=== PATIENT | male | born 1970 | race Caucasian/White ===

== ENCOUNTER 2022-11-19 06:30 | Observation (INO) ==
--- NOTE | 2022-10-05 12:10 | PAT Medication Instructions ---
Medication Instructions Date of Service October 05, 2022 Home Medications Medication Instructions Recorded gabapentin 600 mg tablet 600 mg PO TID #270 tabs 12/31/21 Oxygen Home albuterol sulfate 0.63 mg/3 mL solution for nebulization 0.63 mg inhalation BID albuterol sulfate 90 mcg/actuation aerosol inhaler 2 puffs inhalation Q4H PRN benzonatate 100 mg capsule 100 mg PO BID montelukast 10 mg tablet (Singulair) 10 mg PO HS roflumilast 500 mcg tablet (Daliresp) 500 mcg PO HS trazodone 50 mg tablet 100 mg PO HS duloxetine 30 mg capsule,delayed release (Cymbalta) 30 mg PO QAM methylprednisolone 8 mg tablet 8 mg PO BID PRN lisinopril 10 mg tablet (Prinivil) 10 mg PO QAM gabapentin 600 mg tablet 600 mg PO TID baclofen 10 mg tablet 10 mg PO TID celecoxib 200 mg capsule 200 mg PO BID oxycodone-acetaminophen 10 mg-325 mg tablet (Percocet) 1 tab PO UD PRN atorvastatin 20 mg tablet 20 mg PO QAM diclofenac sodium 1 % topical gel 2 g topical QID PRN diltiazem HCl 360 mg capsule,24 hr,extended release (Tiadylt ER) 360 mg PO QAM docusate sodium 100 mg tablet 100 mg PO QID duloxetine 60 mg capsule,delayed release (Cymbalta) 60 mg PO QAM famotidine 20 mg tablet 20 mg PO BID fluticasone fur. 200 mcg-umeclid 62.5 mcg-vilant 25 mcg inhalat.powder (Trelegy Ellipta) 1 inh inhalation QAM furosemide 20 mg tablet 20 mg PO QAM ibuprofen 600 mg tablet 600 mg PO TID ivabradine 5 mg tablet (Corlanor) 5 mg PO BID metoprolol succinate 25 mg tablet,extended release 24 hr 25 mg PO HS omeprazole 40 mg capsule,delayed release 40 mg PO BID Continue as directed methylprednisolone 8 mg tablet 8 mg PO BID PRN(if needed) ASK your surgeon for instructions celecoxib 200 mg capsule 200 mg PO BID diclofenac sodium 1 % topical gel 2 g topical QID PRN ibuprofen 600 mg tablet 600 mg PO TID DO NOT take the morning of surgery benzonatate 100 mg capsule 100 mg PO BID lisinopril 10 mg tablet (Prinivil) 10 mg PO QAM baclofen 10 mg tablet 10 mg PO TID docusate sodium 100 mg tablet 100 mg PO QID furosemide 20 mg tablet 20 mg PO QAM Take morning of surgery With a small sip of water, OTHERWISE NOTHING TO EAT OR DRINK AFTER MIDNIGHT: albuterol sulfate 0.63 mg/3 mL solution for nebulization 0.63 mg inhalation BID albuterol sulfate 90 mcg/actuation aerosol inhaler 2 puffs inhalation Q4H PRN (use if needed; please bring with you to hospital day of surgery if possible) duloxetine 30 mg capsule,delayed release (Cymbalta) 30 mg PO QAM gabapentin 600 mg tablet 600 mg PO TID oxycodone-acetaminophen 10 mg-325 mg tablet (Percocet) 1 tab PO UD PRN(if needed) atorvastatin 20 mg tablet 20 mg PO QAM diltiazem HCl 360 mg capsule,24 hr,extended release (Tiadylt ER) 360 mg PO QAM duloxetine 60 mg capsule,delayed release (Cymbalta) 60 mg PO QAM famotidine 20 mg tablet 20 mg PO BID fluticasone fur. 200 mcg-umeclid 62.5 mcg-vilant 25 mcg inhalat.powder (Trelegy Ellipta) 1 inh inhalation QAM ivabradine 5 mg tablet (Corlanor) 5 mg PO BID omeprazole 40 mg capsule,delayed release 40 mg PO BID Take evening before surgery albuterol sulfate 0.63 mg/3 mL solution for nebulization 0.63 mg inhalation BID albuterol sulfate 90 mcg/actuation aerosol inhaler 2 puffs inhalation Q4H PRN(if needed) benzonatate 100 mg capsule 100 mg PO BID montelukast 10 mg tablet (Singulair) 10 mg PO HS roflumilast 500 mcg tablet (Daliresp) 500 mcg PO HS trazodone 50 mg tablet 100 mg PO HS gabapentin 600 mg tablet 600 mg PO TID baclofen 10 mg tablet 10 mg PO TID famotidine 20 mg tablet 20 mg PO BID ivabradine 5 mg tablet (Corlanor) 5 mg PO BID metoprolol succinate 25 mg tablet,extended release 24 hr 25 mg PO HS omeprazole 40 mg capsule,delayed release 40 mg PO BID Other Notes If you have any questions please call us at [phone] or [phone] or [phone] or [phone]
--- NOTE | 2022-10-12 10:40 | Anesthesiology Consultation ---
Date of Service October 12, 2022 Assessment & Plan (1) Encounter for pre-operative examination: Chart Review Chart Review: Pending: Refer to Additional Notes / Consult section (pending cardio clearance appt 10/18/22, cardiac cath if available, most recent PCP note, most recent pulm note ) and Patient seen in Pre Admission Testing - Discussed with Dr. Sparks who recommends cardio preop optimization appt- pt did call flight teacher ([facility] [place]- Dr. Shields) - scheduled 10/18/22 for cardio clearance appt- will await - Awaiting cardiac cath- Oct 2017 (if flight teacher does not have copy- patient had cath done at [facility] in [place]- by Dr. Carlito Huerta- phone number [phone]) - Please obtain most recent PCP note and pulmonology note (dietetic technician is Dr. Kinsey in [place]) Pt states he has severe anxiety about upcoming surgery and will have increased anxiety DOS - Pt is NOT a Same Day Joint candidate due to comorbidities Per PAT appt on 10/12/22, patient denies any recent travel or large group activities. Pt is NOT vaccinated for Covid. Will leave to surgeon's discretion if preop Covid testing needed. Educated on importance of using Covid precautions one week prior to surgery Last seen by cardio 12/03/21= seen for follow-up visit. CADmild per her reportcath done November 2017. Hypertensionbenigncontinue current meds. COPDwe will review pulmonology's notes. Inappropriate tachycardiaon high dose of diltiazem as well as moderate beta-blockerdoing well on CorlanorHR well controlled. Holter monitor ordered due to night time sweats. Follow up in six months Teaching & Discussion Pre-Anesthesia Teaching/Discussion Notes: Instructed NPO after midnight before surgery,except medications with 15 cc of water. Medication instructions provided according to the PAT guidelines. History Surgery Operation Date: 11/19/22 12:45 Proposed Procedures p Left Anterior Total Hip Arthroplasty - Nayan Burgos DO Height/Weight Height: 5 ft 9 in Weight: 102.1 kg Allergies Allergy/AdvReac Type Severity Reaction Status Date / Time prednisone Allergy rash Verified 10/04/22 07:37 Medications Home Medications Medication Instructions Recorded Confirmed Last Taken Oxygen Home #1 ea 11/23/19 08/18/22 Unknown albuterol sulfate 0.63 mg/3 mL 0.63 mg inhalation BID 11/23/19 10/04/22 Unknown solution for nebulization albuterol sulfate 90 mcg/actuation 2 puffs inhalation Q4H PRN 11/23/19 10/04/22 Unknown aerosol inhaler Shortness Of Breath benzonatate 100 mg capsule 100 mg PO BID 11/23/19 10/04/22 Unknown montelukast 10 mg tablet 10 mg PO HS 11/23/19 10/04/22 Unknown (Singulair) roflumilast 500 mcg tablet 500 mcg PO HS 11/23/19 10/04/22 Unknown (Daliresp) trazodone 50 mg tablet 100 mg PO HS 11/23/19 10/04/22 Unknown duloxetine 30 mg capsule,delayed 30 mg PO QAM 05/15/20 10/04/22 Unknown release (Cymbalta) methylprednisolone 8 mg tablet 8 mg PO BID PRN breathing flare up 05/15/20 10/04/22 Unknown lisinopril 10 mg tablet (Prinivil) 10 mg PO QAM 06/20/20 10/04/22 Unknown gabapentin 600 mg tablet 600 mg PO TID #270 tabs 12/31/21 10/04/22 Unknown baclofen 10 mg tablet 10 mg PO TID 08/18/22 10/04/22 Unknown celecoxib 200 mg capsule 200 mg PO BID 08/18/22 10/04/22 Unknown oxycodone-acetaminophen 10 mg-325 1 tab PO UD PRN Pain 08/18/22 10/04/22 Unknown mg tablet (Percocet) atorvastatin 20 mg tablet 20 mg PO QAM 10/04/22 10/04/22 Unknown diclofenac sodium 1 % topical gel 2 g topical QID PRN Pain 10/04/22 10/04/22 Unknown diltiazem HCl 360 mg capsule,24 360 mg PO QAM 10/04/22 10/04/22 Unknown hr,extended release (Tiadylt ER) docusate sodium 100 mg tablet 100 mg PO QID 10/04/22 10/04/22 Unknown duloxetine 60 mg capsule,delayed 60 mg PO QAM 10/04/22 10/04/22 Unknown release (Cymbalta) famotidine 20 mg tablet 20 mg PO BID 10/04/22 10/04/22 Unknown fluticasone fur. 200 mcg-umeclid 1 inh inhalation QAM 10/04/22 10/04/22 Unknown 62.5 mcg-vilant 25 mcg inhalat.powder (Trelegy Ellipta) furosemide 20 mg tablet 20 mg PO QAM 10/04/22 10/04/22 Unknown ibuprofen 600 mg tablet 600 mg PO TID 10/04/22 10/04/22 Unknown ivabradine 5 mg tablet (Corlanor) 5 mg PO BID 10/04/22 10/04/22 Unknown metoprolol succinate 25 mg 25 mg PO HS 10/04/22 10/04/22 Unknown tablet,extended release 24 hr omeprazole 40 mg capsule,delayed 40 mg PO BID 10/04/22 10/04/22 Unknown release Past Medical History Medical History (Updated 10/12/22 @ 11:12 by Helga Gottlieb PA-C) Anxiety "Severe" Asthma Follows with pulm CAD (coronary artery disease) Mild per 2018 cath per cardio records ([facility])) Cataract bilat. Cervical disc herniation Cervical radiculopathy Congenital stenosis of cervical spine Worst at C5-6 COPD (chronic obstructive pulmonary disease) Follows with pulm Depression Emphysema lung O2 at 3L continuous Follows Dr. Kinsey ([place]) GERD (gastroesophageal reflux disease) Well controlled and controlled History of pericarditis Occurred around 2012- etiology unknown - treated with mediations- no issues since History of tachycardia Likely related to COPD and hypoxia per cardio records Well controlled with medication Hypertension Migraines History Exercise / Class Metabolic Activity III < 4 Walking/Shop/Light housework (no chest pain, SOB with flat surface ambulation ) Past Family History Family History Mother Heart disease Hypertension Grandmother (Paternal) Diabetes Grandfather (Paternal) Heart disease Grandfather (Maternal) Lung disease Past Surgical History Surgical History History of cardiac cath ~5 years ago, LISA power, no stents>no finding; f/u [facility] History of esophagogastroduodenoscopy (EGD) History of radiofrequency ablation (RFA) of nerve of cervical spine Hx of colonoscopy Hx of external ear surgery reattachment of lt earlobe Hx of hand surgery lt ring finger, reconstruction Hx of myringotomy bilat w/tubes Hx of shoulder surgery rt. S/P epidural steroid injection neck and back Status post carpal tunnel release of both wrists Past Anesthesia History No Hx of Anesthesia Complications and No Family Hx of Anesthesia Complications History of PONV No Hx of PONV and No Hx of Motion Sickness Social History Smoking Status: Former smoker tobacco type: cigarettes Do You Dip or Chew Tobacco: Yes (1 can/day; advised) Smoking End Date: over 5 years ago; occasionally takes "a hit of his 's cigarette" Hx Alcohol Use: No (hx-not in quite some time) Hx Substance Use: No substance use type: does not use Review of Systems Chronic coughing and wheezing Hx of snoring- hx of sleep study- no BIMAL Patient denies chest pain, shortness of breath at rest, palpitations. No hx of seizures, stroke, MO. No hx of blood clots or blood transfusions Physical Exam Vital Signs VITALS BP 105/64 P 64 TEMP 97.9 SP02 98% on 3 liters of O2 RESP 16 Constitutional no acute distress ENMT Mouth: no TMJ clicking Thyromental Distance: > or= 3.5 Finger Breadths (3.5) Mallampati Class: III Damage and broken top/ front teeth Neck + limited neck extension Respiratory normal respiratory effort; no respiratory distress Auscultation: lungs clear to auscultation bilaterally and + diminished lung sounds (significantly throughout); no wheezes Cardiovascular Rate/Rhythm: regular rate and regular rhythm Heart Sounds: no murmur Vessels: no carotid bruit Musculoskeletal Spine: + pain with cervical ROM Extremities: extremities normal to inspection Psychiatric Orientation: alert Lab Results Anesthesia Preop Results Results Anesthesia Widget: WBC 8.45 K/ul (4.8-10.8) 10/12/22 Hgb 12.6 g/dl (14.0-18.0) L 10/12/22 Hct 36.9 % (40.1-51.0) L 10/12/22 Plt 237 K/uL (130-400) 10/12/22 Na 138 mmol/L (136-145) 10/12/22 K 4.0 mmol/L (3.5-5.1) 10/12/22 Cl 105 mmol/L (98-107) 10/12/22 CO2 27 mmol/L (21-32) 10/12/22 BUN 16 mg/dl (6-23) 10/12/22 Creat 0.98 mg/dl (0.6-1.4) 10/12/22 Glucose Level 95 mg/dl (70-99(Fasting)) 10/12/22 PT 9.8 Seconds (9.0-12.0) 10/12/22 PTT 23.4 Seconds (21.0-31.0) 10/12/22 INR 0.9 (0.9-1.1) 10/12/22 Blood Type A Positive 10/12/22 Antibody Screen NEGATIVE 10/12/22 Testing Electrocardiogram Date: 10/12/22 Findings: + NSR @ (62bpm ) Normal EKG per cardio Chest X-Ray Date: 10/12/22 Findings: + NAD Echocardiogram Date: 12/03/21 EF: 55-60% LV Function: normal RWMA: + none Other Findings: + diastolic dysfunction (Grade 1); no LVH Mild TR. Mild MR. Normal pulmonary pressures. COVID-19 Risk Screen Screening Information COVID-19 Screen Date: 10/12/22 Exposure 21 Days Family/Household +COVID Last 21 Days: No Exposure 10 Days Any COVID Exposure Last 10 Days: No Symptoms Last 10 Days Experienced COVID Sx Last 10 Days: No + COVID 0-90 Days COVID + in Last 0-90 Days: No Risk Plan COVID Risk Plan: No Risk Identified Patient Education COVID Preop Screening Education Complete: Yes
--- NOTE | 2022-11-19 06:08 | History & Physical Report ---
Date of Service November 19, 2022 Assessment & Plan (1) Osteoarthritis of left hip: We will proceed with a left anterior total of arthroplasty. Postoperatively he will be started on aspirin for DVT prophylaxis and kept overnight in the hospital for postoperative medical management. He plans to have the hospital set up home health for discharge. History of Present Illness Chief Complaint: Osteoarthritis of the left hip. Primary Care Provider: Mike Singh MD Tank is a pleasant 52-year-old male who is on home oxygen for COPD. He has been dealing with chronic worsening left hip and groin pain. He has been seeing an orthopedist down in [place]. He has had multiple intraarticular hip injections, which initially helped but did not last long. He is really struggling with his left hip. He was scheduled to have a hip replacement surgery, but [place] put all elective joints on hold due to staffing shortages. After failing extensive conservative treatment, he has elected to proceed with a left anterior total of arthroplasty. Allergies Allergy/AdvReac Type Severity Reaction Status Date / Time prednisone Allergy rash Verified 10/04/22 07:37 Home Medications Medication Instructions Recorded Confirmed Type Oxygen Home #1 ea 11/23/19 08/18/22 History albuterol sulfate 0.63 mg/3 mL 0.63 mg inhalation BID 11/23/19 10/04/22 History solution for nebulization albuterol sulfate 90 mcg/actuation 2 puffs inhalation Q4H PRN 11/23/19 10/04/22 History aerosol inhaler Shortness Of Breath benzonatate 100 mg capsule 100 mg PO BID 11/23/19 10/04/22 History montelukast 10 mg tablet 10 mg PO HS 11/23/19 10/04/22 History (Singulair) roflumilast 500 mcg tablet 500 mcg PO HS 11/23/19 10/04/22 History (Daliresp) trazodone 50 mg tablet 100 mg PO HS 11/23/19 10/04/22 History duloxetine 30 mg capsule,delayed 30 mg PO QAM 05/15/20 10/04/22 History release (Cymbalta) methylprednisolone 8 mg tablet 8 mg PO BID PRN breathing flare up 05/15/20 10/04/22 History lisinopril 10 mg tablet (Prinivil) 10 mg PO QAM 06/20/20 10/04/22 History gabapentin 600 mg tablet 600 mg PO TID #270 tabs 12/31/21 10/04/22 Rx baclofen 10 mg tablet 10 mg PO TID 08/18/22 10/04/22 History celecoxib 200 mg capsule 200 mg PO BID 08/18/22 10/04/22 History oxycodone-acetaminophen 10 mg-325 1 tab PO UD PRN Pain 08/18/22 10/04/22 History mg tablet (Percocet) atorvastatin 20 mg tablet 20 mg PO QAM 10/04/22 10/04/22 History diclofenac sodium 1 % topical gel 2 g topical QID PRN Pain 10/04/22 10/04/22 History diltiazem HCl 360 mg capsule,24 360 mg PO QAM 10/04/22 10/04/22 History hr,extended release (Tiadylt ER) docusate sodium 100 mg tablet 100 mg PO QID 10/04/22 10/04/22 History duloxetine 60 mg capsule,delayed 60 mg PO QAM 10/04/22 10/04/22 History release (Cymbalta) famotidine 20 mg tablet 20 mg PO BID 10/04/22 10/04/22 History fluticasone fur. 200 mcg-umeclid 1 inh inhalation QAM 10/04/22 10/04/22 History 62.5 mcg-vilant 25 mcg inhalat.powder (Trelegy Ellipta) furosemide 20 mg tablet 20 mg PO QAM 10/04/22 10/04/22 History ibuprofen 600 mg tablet 600 mg PO TID 10/04/22 10/04/22 History ivabradine 5 mg tablet (Corlanor) 5 mg PO BID 10/04/22 10/04/22 History metoprolol succinate 25 mg 25 mg PO HS 10/04/22 10/04/22 History tablet,extended release 24 hr omeprazole 40 mg capsule,delayed 40 mg PO BID 10/04/22 10/04/22 History release Past Med/Surg History Medical History Anxiety "Severe" Asthma Follows with pulm CAD (coronary artery disease) Mild per 2018 cath per cardio records ([place] ([facility])) Cataract bilat. Cervical disc herniation Cervical radiculopathy Congenital stenosis of cervical spine Worst at C5-6 COPD (chronic obstructive pulmonary disease) Follows with pulm Depression Emphysema lung O2 at 3L continuous Follows Dr. Kinsey ([place]) GERD (gastroesophageal reflux disease) Well controlled and controlled History of pericarditis Occurred around 2012- etiology unknown - treated with mediations- no issues since History of tachycardia Likely related to COPD and hypoxia per cardio records Well controlled with medication Hypertension Migraines History Surgical History History of cardiac cath ~5 years ago, LISA power, no stents>no finding; f/u dr mayo [facility] History of esophagogastroduodenoscopy (EGD) History of radiofrequency ablation (RFA) of nerve of cervical spine Hx of colonoscopy Hx of external ear surgery reattachment of lt earlobe Hx of hand surgery lt ring finger, reconstruction Hx of myringotomy bilat w/tubes Hx of shoulder surgery rt. S/P epidural steroid injection neck and back Status post carpal tunnel release of both wrists Family History Mother Heart disease Hypertension Grandmother (Paternal) Diabetes Grandfather (Paternal) Heart disease Grandfather (Maternal) Lung disease Social History Smoking Status: Former smoker Second Hand Exposure: Yes ( smokes); Hx Alcohol Use: No (hx-not in quite some time) Hx Substance Use: No Preferred Language: Yoruba Communication Ability: Effective Visual Impairment: No Limitations Hearing Ability: Normal Plumber Pipe Fitting Required: No Beliefs That Will Affect Care: None marital status: Current Living Situation: Spouse current occupational status: unemployed Feels Safe at Home: Yes Assistive Devices: Glasses and Oxygen - Continuous Review of Systems All systems reviewed & are unremarkable except as noted in HPI & below. Physical Exam On physical examination of the left hip, he has decreased range of motion. He has pain with forced internal/external rotation. Most of his pain is in his groin.. Constitutional WD/WN, vitals as above Eyes PERRL, conjunctivae normal, anicteric sclerae ENMT external ear and nose normal, oropharynx normal Neck trachea midline, no thyromegaly Respiratory normal respiratory effort, lungs clear to auscultation Cardiovascular RRR, no murmur, no edema Gastrointestinal (Abdomen) normal bowel sounds, soft, nontender, no hepatosplenomegaly Skin no rashes, warm and dry Psychiatric A+Ox3, euthymic affect Results & Data Results & Data Laboratory Results . Diagnostic Findings X-rays of the left hip show advanced osteoarthritis with joint space narrowing, osteophyte formation, and [id number]-ffle articulation. PG Care Time/CCT Total # of Minutes Spent Total Time Spent with Patient: Total time spent is greater than 50% in coordination of care (as documented) at patient's floor/unit and/or counseling patient: Coding Level of Care Code None Diagnoses Osteoarthritis of left hip M16.12
[~2022-11-19 06:30] MED LIST: ACETAMINOPHEN 500 MG TAB PO SCH; FAMOTIDINE 20 MG TAB PO SCH; GABAPENTIN 300 MG CAP PO SCH; LR 500ML BOLUS, THEN 15ML/HR IV SCH; LR 60ML/HR IV SCH; ORTHO JOINT MIX INFIL SCH; TRANEXAMIC ACID 1,000 MG **IV Intra-op IV SCH; TRANEXAMIC ACID 1,000 MG **IV Pre-op IV SCH; ceFAZolin 2000MG 2,000 MG/15 ML SYR IV SCH; dexAMETHasone 4 MG TAB PO SCH
[2022-11-19] MEDS ORDERED: BUPIVACAINE 0.5 % 5 MG/1 ML PF 10ML VIAL ONE (06:34)
[2022-11-19] MEDS ORDERED: ePHEDrine sulfate 50 MG/ML AMP IV PRN (08:01)
[2022-11-19] MEDS ORDERED: ONDANSETRON INJ 2 MG/ML 2 ML VIAL IV PRN ×2 (08:01→12:24)
[2022-11-19] MEDS ORDERED: ATROPINE SULFATE 0.1 MG/ML 10ML SYR IV PRN (08:01)
[2022-11-19] MEDS ORDERED: ALBUT/IPRATROP 3MG/0.5MG NEB 3 ML VIAL NEB STA (08:01)
[2022-11-19] MEDS ORDERED: fentaNYL citrate 100 MCG/2 ML VIAL ONE (08:40)
[2022-11-19] MEDS ORDERED: MIDAZOLAM HCL 1 MG/ML 2ML VIAL ONE (08:40)
[2022-11-19] MEDS ORDERED: ORTHO JOINT ANESTHETIC ONE (09:13)
[2022-11-19] MEDS ORDERED: PROPOFOL IV EMULSION 10 MG/ML 20 ML VIAL IV ONE (09:39)
[2022-11-19] MEDS ORDERED: ePHEDrine sulfate 50 MG/ML SYR ONE (09:39)
[2022-11-19] MEDS ORDERED: ONDANSETRON INJ 2 MG/ML 2 ML VIAL ONE (09:39)
[2022-11-19] MEDS ORDERED: HYDROmorphone INJ 2 MG/ML SYR/VIAL ONE (09:47)
[2022-11-19] MEDS ORDERED: KETAMINE 50 MG/5 ML SYRINGE ONE (09:53)
--- NOTE | 2022-11-19 10:43 | Operative Report ---
PG Post Operative Report Pre & Post Diagnosis Operation Date: 11/19/22 09:20 Pre-Op Diagnosis: DJD Left Hip Post-Op Diagnosis: DJD Left Hip I identified the patient and participated in the time-out.: Yes Procedure Operation Date: 11/19/22 09:20 Actual Procedures p Left Anterior Total Hip Arthroplasty(Left) - Nayan Burgos DO Surgeon Nayan Burgos DO Shingle Inspector Nayan Lion PA-C Estimated Blood Loss 300 Findings Consistent with Post-Op Diagnosis Specimens Left femoral head Description of Procedure Implants used I used a ZimmerBiomet total hip arthroplasty system with a size 4 high offset Avenir Complete stem, a 46 mm G7 cup with a 25mm screw, an E1 polyethylene liner, a 32 mm ceramic head with a +3.5 neck. Tank arrived at the hospital for the above procedure. He was seen in the preoperative holding area and the operative extremity was identified and signed. He was given a preoperative antibiotic, and TXA. He was then taken back to the operating room and laid on the table in the supine position. He was given general anesthesia. The operative leg was secured to a Puristst leg positioner. The hip was then prepped and draped in sterile fashion. A timeout was done and the patient and the operative extremity was properly identified. An anterior approach was used. Dissection was taken down through the fascia and the tensor muscle belly was retracted laterally and the rectus was retracted medially. The circumflex vessels were identified and ligated. The capsule was then incised and tagged for later repair. The femoral neck was then cut and the femoral head was removed. The acetabulum was exposed. Time was spent doing a complete circumferential labral release. Sequential reaming of the acetabulum up to a size 45 reamer was done. Final reamings were done under fluoroscopy to ensure appropriate version. A Biomet 46 mm G7 cup was then impacted into place. A single 25 mm screw was placed. The E1 polyethylene liner was then snapped into place. Surrounding soft tissues were then injected with 100 cc of an orthopedic pain control cocktail. The proximal femur was then exposed. Sequential broaching up to a size 4 high offset broach was done. Off that broach a size 32 head with a +3.5 neck was trialed. The hip was reduced and fluoroscopic images showed anatomic alignment of the implants in acceptable length. The broach was removed. The final size 4 high offset Avenir Complete stem was then impacted into place. A ceramic 32 mm head with a +3.5 neck was then impacted onto the stem and the hip was reduced. Final fluoroscopic images showed anatomic alignment of the hip. The capsule was then closed with #1 Vicryl suture. A dilute betadyne lavage was then done for 3 minutes. The joint was then irrigated with normal saline solution. The fascia was closed with #1 PDS suture. Skin was closed with 2-0 Vicryl, ricco, and a Silverlon dressing. He was then transferred to a hospital bed and taken to the post anesthesia care unit in stable condition. He tolerated the procedure well. Nayan Lion PA-C, was present for the entire procedure. He was critical for p atient positioning, prepping, draping, retraction exposure, wound closure and application of sterile dressing. I attest to the content of the Intraoperative Record and any orders documented therein. Any exceptions are noted below.
[2022-11-19] MEDS: fentaNYL citrate 100 MCG/2 ML VIAL IV PRN ×4 (11:09→11:27)
--- NOTE | 2022-11-19 11:26 | Fluoroscopy Report ---
INTRAOPERATIVE RADIOGRAPHS CLINICAL HISTORY: Left hip arthroplasty. Fluoro time: 19 seconds. Exposure: 2.87 mGy FINDINGS: A single spot fluoroscopic image of the left hip is presented. A bipolar left hip arthropla sty is in near anatomic alignment. A single cortical lag screw transfixes the acetabular cup. There i s no evidence of acute fracture on this single spot image. IMPRESSION: Intraoperative image from a left hip arthroplasty procedure as above. Electronically signed by: Yordan Torres M.D. 11/19/2022 11:25 AM
[2022-11-19] MEDS: HYDROmorphone INJ 2 MG/ML SYR/VIAL IV PRN ×2 (11:37→11:45)
--- NOTE | 2022-11-19 12:02 | XRay Report ---
XR hip 1V LT w pelvis CLINICAL HISTORY: IN PACU - Post Surgical TECHNIQUE: 2 views of the left hip and single frontal view of the pelvis were obtained. Comparison: None available at the time of this dictation. FINDINGS: Patient is status post total hip arthroplasty with expected postsurgical changes including soft tissu e swelling and subcutaneous emphysema. IMPRESSION: Expected postoperative appearance status post placement of total hip arthroplasty. ACT 112: Negative or not required by law. Electronically signed by: Chang Monson M.D. 11/19/2022 12:00 PM
[2022-11-19] MEDS ORDERED: NALOXONE HCL 0.4 MG/1 ML VIAL/CARP IV PRN (12:24)
[2022-11-19] MEDS ORDERED: MAGNESIUM HYDROXIDE SUSP 30 ML UDC PO PRN (12:24)
[2022-11-19] MEDS ORDERED: ALBUTEROL HFA 8 GM INHALER INH PRN (12:24)
[2022-11-19] MEDS ORDERED: bisacodyL 10 MG SUPP PR PRN (12:24)
[2022-11-19] MEDS ORDERED: HYDROmorphone INJ 0.5 MG/0.5 ML SYR IV PRN (12:24)
[2022-11-19] MEDS ORDERED: METOCLOPRAMIDE HCL INJ 5 MG/ML 2 ML VIAL IV PRN (12:24)
--- NOTE | 2022-11-19 12:27 | Anesthesiology Progress Note ---
Date of Service November 19, 2022 Anesthesia Post Procedure Vital Signs Vital Signs: Temp Pulse Pulse Resp BP Pulse Ox O2 Del Method 11/19/22 12:22 36.9 C 107 H 22 107/68 92 Nasal Cannula 11/19/22 11:25 117 H 22 124/91 93 Nasal Cannula 11/19/22 12:05 103 H 11 L 121/82 94 Nasal Cannula 11/19/22 11:55 36.6 C 107 H 16 138/69 94 Nasal Cannula 11/19/22 11:45 118 H 24 136/74 94 Nasal Cannula 11/19/22 11:35 115 H 21 113/97 96 Nasal Cannula 11/19/22 11:15 115 H 20 131/76 96 Oxymask 11/19/22 11:07 36.8 C 124 H 24 124/78 95 Oxymask 11/19/22 08:07 61 18 98 Nasal Cannula 11/19/22 07:01 Nasal Cannula 11/19/22 07:01 36.9 C 69 18 129/68 98 Nasal Cannula O2 Flow Rate 11/19/22 12:22 3 11/19/22 11:25 3 11/19/22 12:05 3 11/19/22 11:55 3 11/19/22 11:45 3 11/19/22 11:35 3 11/19/22 11:15 5 11/19/22 11:07 5 11/19/22 08:07 3 11/19/22 07:01 3 11/19/22 07:01 3 Pain Intensity Lower Back: Pain Intensity: 5 Neck: Pain Intensity: 8 Left Hip: Pain Intensity: 4 Transfer of Care Handoff Completed per policy Notes Mental Status: alert / awake / arousable and participated in evaluation Patient Amnestic to Procedure: Yes Nausea / Vomiting: adequately controlled Pain: adequately controlled Airway Patency, RR, SpO2: stable & adequate BP & HR: stable & adequate Hydration State: stable & adequate Anesthetic Complications: no major complications apparent and Pt Satisfied with anesthetic care
[2022-11-19] MEDS: DOCUSATE SODIUM 100 MG CAP PO SCH ×3 (13:47→20:13)
[2022-11-19] MEDS: GABAPENTIN 600 MG TAB PO SCH ×2 (13:47→20:15)
[2022-11-19] MEDS: ACETAMINOPHEN 500 MG TAB PO SCH ×2 (13:48→20:22)
[2022-11-19] MEDS: KETOROLAC 30 MG/ML VIAL IV SCH ×2 (13:48→20:10)
[2022-11-19] MEDS: BACLOFEN 10 MG TAB PO SCH ×2 (13:48→20:12)
[2022-11-19] MEDS: SODIUM CHLORIDE 0.9% 1000ML 1,000 ML IV SCH ×2 (13:50→21:09)
[2022-11-19] MEDS: oxyCODONE HCL IR 5 MG TAB (IMMEDIATE RELEASE) PO PRN ×2 (16:12→20:22)
[2022-11-19] MEDS ORDERED: Nursing to Pharmacy Communication SCH (16:30)
[2022-11-19] MEDS: ceFAZolin 2000MG 2,000 MG/15 ML SYR IV SCH (17:17)
[2022-11-19] MEDS ORDERED: ALBUTEROL 0.083% NEBU SOLN 3 ML VIAL INH SCH (19:00)
[2022-11-19] MEDS: BENZONATATE 100 MG CAPSULE PO SCH (20:13)
[2022-11-19] MEDS: ASPIRIN 81 MG ECTAB PO SCH (20:13)
[2022-11-19] MEDS: FAMOTIDINE 20 MG TAB PO SCH (20:14)
[2022-11-19] MEDS: PANTOprazole 40 MG TAB PO SCH (20:15)
[2022-11-19] MEDS ORDERED: SENNA 8.6 MG TAB PO SCH (21:00)
[2022-11-19] MEDS ORDERED: DOCUSATE SODIUM 100 MG CAP PO SCH (21:00)
[2022-11-19] MEDS ORDERED: traZODone HCL 100 MG TAB PO SCH (21:00)
[2022-11-19] MEDS ORDERED: MONTELUKAST SODIUM 10 MG TABLET PO SCH (21:00)
[2022-11-19] MEDS ORDERED: METOPROLOL SUCC 25MG EXT REL TAB PO SCH (21:00)
[2022-11-19] MEDS ORDERED: ROFLUMILAST 500 MCG TAB PO SCH (21:00)
[2022-11-20] MEDS: ceFAZolin 2000MG 2,000 MG/15 ML SYR IV SCH (02:23)
[2022-11-20] MEDS: oxyCODONE HCL IR 5 MG TAB (IMMEDIATE RELEASE) PO PRN ×2 (02:23→07:47)
[2022-11-20] MEDS: KETOROLAC 30 MG/ML VIAL IV SCH ×2 (02:24→07:47)
[2022-11-20] MEDS: ACETAMINOPHEN 500 MG TAB PO SCH (06:06)
[2022-11-20] MEDS: PANTOprazole 40 MG TAB PO SCH (07:49)
[2022-11-20] MEDS: ASPIRIN 81 MG ECTAB PO SCH (07:49)
[2022-11-20] MEDS: FAMOTIDINE 20 MG TAB PO SCH (07:49)
[2022-11-20] MEDS: GABAPENTIN 600 MG TAB PO SCH (07:49)
[2022-11-20] MEDS: BENZONATATE 100 MG CAPSULE PO SCH (07:49)
[2022-11-20] MEDS: BACLOFEN 10 MG TAB PO SCH (07:50)
[2022-11-20] MEDS: DOCUSATE SODIUM 100 MG CAP PO SCH (07:50)
[2022-11-20] MEDS ORDERED: dexAMETHasone 4 MG TAB PO SCH (08:00)
--- NOTE | 2022-11-20 08:20 | Orthopedic Progress Note ---
Date of Service November 20, 2022 Assessment & Plan (1) Status post left hip replacement: Overall he is doing very well. He is not having much pain in his left hip. He will be seen by physical therapy today for ambulation and range of motion exercises. He is on aspirin for DVT prophylaxis. He can be discharged home later today. He will follow-up with orthopedics in 2 weeks. Betzaida Fu was seen and examined at bedside this morning. Overall is doing very well. He is not having much pain in the left hip. He has been up and ambulating around the hallways. He has no complaints.. Review of Systems All systems reviewed & are unremarkable except as noted in HPI & below. Physical Exam On physical examination of the left hip, the dressing is clean and dry. He has active dorsiflexion plantarflexion of his left ankle.. Results & Data Results & Data Laboratory Results . Diagnostic Findings Postoperative x-rays of the left hip show the prosthesis to be in anatomic alignment without any evidence of fracture, dislocation, or loosening. PG Care Time/CCT Total # of Minutes Spent Total Time Spent with Patient: Total time spent is greater than 50% in coordination of care (as documented) at patient's floor/unit and/or counseling patient: Coding Level of Care Code 10583 Post Operative Follow-Up Diagnoses Status post left hip replacement Z96.642
--- NOTE | 2022-11-20 08:21 | Discharge Summary ---
Date of Service November 20, 2022 Admission HPI (Per Admitting) Tank is a pleasant 52-year-old male who is on home oxygen for COPD. He has been dealing with chronic worsening left hip and groin pain. He has been seeing an orthopedist down in [place]. He has had multiple intraarticular hip injections, which initially helped but did not last long. He is really struggling with his left hip. He was scheduled to have a hip replacement surgery, but [place] put all elective joints on hold due to staffing shortages. After failing extensive conservative treatment, he has elected to proceed with a left anterior total of arthroplasty. Admission Exam (Per Admitting) On physical examination of the left hip, he has decreased range of motion. He has pain with forced internal/external rotation. Most of his pain is in his groin.. Principal Diagnosis Same as "Discharge Diagnosis" noted below under Discharge Instructions. Discharge Exam On physical examination of the left hip, the dressing is clean and dry. He has active dorsiflexion plantarflexion of his left ankle.. Discharge Data Procedures Performed Operation Date: 11/19/22 09:20 Actual Procedures p Left Anterior Total Hip Arthroplasty(Left) - Nayan Burgos DO Ordered Studies 11/19/22 09:20 FL hip LT 1V Routine Hospital Course (1) Status post left hip replacement: On November 19, 2022 Tank arrived at [facility] and underwent a left hip replacement without complication. He had a general anesthetic. Postoperatively he was started on aspirin for DVT prophylaxis and transferred to the general orthopedic floors. His hospital course was uneventful. On postop day #1, his vital signs were stable and his pain was well controlled. He was able to participate well with physical therapy doing ambulation and range of motion exercises. He was then discharged home. He will follow-up with orthopedics in 2 weeks. PG Care Time/CCT Total # of Minutes Spent Total Time Spent with Patient: Total time spent is greater than 50% in coordination of care (as documented) at patient's floor/unit and/or counseling patient: Discharge Plan Discharge Items Patient Disposition: Home - Home Health Services Reason For Visit: DJD Left Hip Discharge Diagnosis: Left hip replacement Activity: As commented below Non-emergency contact: Surgeon Call non-emergency contact if: your wound has increased redness and your wound has increased drainage Follow-up/Referrals: Mike Singh MD [Primary Care Provider] - Diet: Regular Addtl Attending Provider Instructions: Activity and Therapy Recommendations: * If you are using [facility] then therapy will be provided at your home until they feel you have accomplished all of your goals. * If you are using [facility] then Physical Therapy will be provided until they feel you are ready to start Outpatient Physical Therapy. * If you are not using home therapy then Outpatient Physical Therapy should start about 3-5 days from your day of surgery. Therapy will last about 6-10 weeks * You were shown a series of exercises in the hospital. Do these exercises three times each day including the exercises you were shown in physical therapy. * Get up and walk several times each day.~ For the first four weeks, try not to stand or walk for more than one hour at a time. If you do stand or walk for more than one hour, you will not hurt anything, but your leg will likely swell.~~ * As you feel comfortable, you may change from the walker or crutches to a cane and~then to independent walking. Medications: * Narcotic You will likely be sent home from the hospital with a prescription for the narcotic pain medication that worked best throughout your stay. * Aspirin Most patients will be required to take Aspirin 81mg twice a day for 6 weeks after surgery. This is obtained [id number] and a prescription is not necessary. * Other medications may be prescribed for specific circumstances. If you have any questions, please call the office at . * Resume previous home medications unless otherwise instructed TEDs/Elastic Stockings: The white elastic stockings help limit swelling and prevent blood clots from forming in your legs. The more you wear them, the more they work. Wear them for six weeks. Dressing Care: Leave the Silverlon dressing in place for 7 days. After 7 days you may remove the dressing. If the incision is not draining then you may leave the ricco open to air. If there is a little bit of drainage or if the ricco are getting stuck on your clothing then cover the incision with a dry dressing. The ricco will be removed at your 2 week follow-up appointment. Showering: You may shower with the Silverlon dressing in place. Do not let the shower spray hit the dressing directly. Pat the Silverlon dressing dry. If the dressing becomes wet underneath, then simply remove the dressing. Keep the incision dry until you are 7 days out from the day of surgery. After 7 days you may remove the Silverlon dressing and shower with the ricco exposed. Let soapy water run over the ricco and pat them dry. Do not scrub or soak the incision. Things To Watch For: * Drainage from the incision site that occurs more than one week after your surgery. * Increased redness at the incision site. * Fever above 102 degrees Fahrenheit. * Unusual chest pain or shortness of breath. * Call [facility] at with any of the above problems Follow-Up Visit: Follow-up with Dr. Burgos's PA (Nayan Lion) 2-3 weeks after your day of surgery. He will remove your ricco and answer any questions. If you have any additional questions or concerns, Dr Burgos is usually in the office at the same time and will be available An appointment was probably scheduled when you signed-up for surgery in the office. If you have any questions call Office Instructions: More detailed instructions as well as Frequently Asked Questions were provided in a folder by our office when you signed-up for surgery. Please review these instructions when you get home. If you have any further questions or concerns, please feel free to call the office at [phone] Pending Studies at Discharge: No Stand-Alone Forms: My [facility] [place], Smoking Cessation Medications and DC Order Prescriptions: New aspirin 81 mg Tablet,Delayed Release (Dr/Ec) 81 mg PO BID 42 Days Qty: 0 0RF Continued montelukast [Singulair] 10 mg tablet 10 mg PO HS benzonatate 100 mg capsule 100 mg PO BID trazodone 50 mg tablet 100 mg PO HS Daliresp 500 mcg tablet 500 mcg PO HS albuterol sulfate 0.63 mg/3 mL solution for nebulization 0.63 mg INH BID albuterol sulfate 90 mcg/actuation HFA aerosol inhaler 2 puffs INH Q4H PRN (Reason: Shortness Of Breath) (DME) Oxygen Home Liters Per Minute See Rx Instructions .ROUTE .MEDSUPPLY Qty: 1 Rx Instructions: As directed duloxetine [Cymbalta] 30 mg capsule,delayed release(DR/EC) 30 mg PO QAM Rx Instructions: w/ 60mg tab for 90mg total methylprednisolone 8 mg tablet 8 mg PO BID PRN (Reason: breathing flare up) lisinopril [Prinivil] 10 mg tablet 10 mg PO QAM gabapentin 600 mg tablet 600 mg PO TID Qty: 270 1RF celecoxib 200 mg capsule 200 mg PO BID oxycodone-acetaminophen [Percocet] 10-325 mg tablet 1 tab PO UD PRN (Reason: Pain) Rx Instructions: 5 times daily baclofen 10 mg tablet 10 mg PO TID atorvastatin 20 mg Tablet 20 mg PO QAM diltiazem HCl [Tiadylt ER] 360 mg Capsule,Extended Release 24 Hr 360 mg PO QAM omeprazole 40 mg Capsule,Delayed Release(Dr/Ec) 40 mg PO BID famotidine 20 mg Tablet 20 mg PO BID furosemide 20 mg Tablet 20 mg PO QAM metoprolol succinate 25 mg Tablet Extended Release 24 Hr 25 mg PO HS ibuprofen 600 mg Tablet 600 mg PO TID docusate sodium 100 mg Tablet 100 mg PO QID duloxetine [Cymbalta] 60 mg Capsule,Delayed Release(Dr/Ec) 60 mg PO QAM Rx Instructions: w/30mg tab for 90mg total diclofenac sodium 1 % Gel 2 g TOPICAL QID PRN (Reason: Pain) Corlanor 5 mg Tablet 5 mg PO BID Rx Instructions: must administer with a meal/food Trelegy Ellipta 200-62.5-25 mcg Blister With Device 1 inh INHALATION QAM Admission Data Admit Date/Time: 11/19/22 11:12 Attending Provider: Nayan Burgos Admit Provider: Nayan Burgos Primary Care Provider: Mike Singh
[2022-11-20] MEDS ORDERED: UMECLIDINIUM/VILANTEROL 62.5/25MCG 7 PUFFS/INHALER INH SCH (09:00)
[2022-11-20] MEDS ORDERED: FLUTICASONE FUROATE 200MCG 14 PUFFS/INHALER INH SCH (09:00)
[2022-11-20] MEDS ORDERED: MULTIVITAMIN TAB PO SCH (09:00)
[2022-11-20] MEDS ORDERED: dilTIAZem HCL 180 MG CAPCR PO SCH (09:00)
[2022-11-20] MEDS ORDERED: DULoxetine HCL 60 MG CAP PO SCH (09:00)
[2022-11-20] MEDS ORDERED: FUROSEMIDE 20 MG TAB PO SCH (09:00)
[2022-11-20] MEDS ORDERED: DULoxetine HCL 30 MG CAP PO SCH (09:00)
[2022-11-20] MEDS ORDERED: NON-FORMULARY MEDICATION (Fluticasone-Umeclidin-Vilanter [Trelegy Ellipta] 200-62.5-25 mcg INH SCH (09:00)
[2022-11-20] MEDS ORDERED: lisinopril 10 MG TAB PO SCH (09:00)
[2022-11-20] MEDS ORDERED: ATORVASTATIN 20 MG TAB PO SCH (09:00)
== END 2022-11-20 11:38 | disposition home health service (06) ==
LOC: 3N 06:30 → ASU 06:30

== ENCOUNTER 2022-12-26 08:27 | Inpatient (IN) ==
[2022-12-26] MEDS ORDERED: ONDANSETRON INJ 2 MG/ML 2 ML VIAL IV STA (09:19)
[2022-12-26] MEDS ORDERED: MoRPHine SULFATE 10 MG/ML CARP/VIAL IV STA (09:19)
[2022-12-26] MEDS ORDERED: CEFEPIME 2,000 MG/20 ML VIAL IV STA (09:19)
[2022-12-26] MEDS ORDERED: VANCOMYCIN CONSULT ACTIVE PRN ×2 (09:19→15:57)
[2022-12-26] MEDS ORDERED: VANCOMYCIN HCL 2,500 MG in SODIUM CHLORIDE 0.9% 500 ML IV ONE (09:19)
[2022-12-26] MEDS ORDERED: ACETAMINOPHEN 500 MG TAB PO STA (09:19)
[2022-12-26] MEDS ORDERED: SODIUM CHLORIDE 0.9% 1000ML 1,000 ML IV ONE (09:20)
--- NOTE | 2022-12-26 09:28 | Emergency Department Note ---
Impression & Plan Abscess of left hip, Cellulitis, Leukocytosis, Status post hip surgery ED Provider Note NAME: LINDA PETERS AGE: 52 SEX: M : 1970 ARRIVES VIA: Walk-In INFORMANT: [Patient] ED PROVIDER(S): [Yordan Gonzales MD] CHIEF COMPLAINT: Left hip pain HISTORY OF PRESENT ILLNESS: The patient is a 52-year-old male presents to the ER with about 2 days or so of left hip erythema with increasing pain today. The redness has also spread. He has had some chills and as per our nursing staff, the patient presents with a fever. He states the redness has spread beyond the panchal he made yesterday. Today, it is very hard to walk and the pain radiates down into his knee and foot. There has been no cough or congestion. He has not had shortness of breath. No vomiting or diarrhea. The patient is not currently on antibiotics. He did have his left hip replaced about 5 weeks ago. He has been in touch with his orthopedist, Dr. Burgos. PMHx/PSHx: See Below SOCIAL HISTORY: See Below. PHYSICAL EXAM: GENERAL: Patient is in no acute distress. HEENT: No acute trauma, normocephalic atraumatic, mucous membranes moist, no nasal congestion. NECK: No stridor, no adenopathy, no meningismus, trachea is midline. LUNGS: Clear to auscultation bilaterally, no wheeze, no rhonchi, breath sounds equal. HEART: Mildly tachycardic, regular rhythm, no murmurs. ABDOMEN: Soft, nontender, bowel sounds positive, no peritonitis. EXTREMITIES: No cyanosis. The patient has an area of erythema and warmth that spreads from the left buttock across the lateral aspect of the left hip and to the anterior aspect of the left hip. The anterior hip incision has healed well. No vesicles to suggest zoster. No drainage. There is some bilateral pedal edema noted. NEUROLOGIC: Oriented x 3, no acute motor or sensory deficits, no focal weakness. SKIN: No jaundice, no diaphoresis. DIFFERENTIAL DIAGNOSIS: Bacteremia, sepsis, cellulitis, abscess, herpes zoster, allergic reaction, among others. EMERGENCY DEPARTMENT COURSE/PROCEDURES: Prior/Outside records reviewed: Recent orthopedic notes. MEDICAL DECISION MAKING: There is a significant leukocytosis at 20,000, this would be consistent with infection. A very mild anemia was seen, patient has been anemic in the past. There is a normal platelet count. Sed rate was elevated at 46. No renal failure. Lactic acid level was not elevated making severe sepsis less likely. No concerning liver enzyme elevation. C-reactive protein was elevated consistent with infection/inflammation. Procalcitonin level was not not elevated. COVID test returned negative. Left hip CT does show a potential abscess. Left knee film per my review did not show fracture or dislocation, no large joint effusion. On exam, there was a left hip cellulitis in the area of the left hip surgical wound. No drainage. Patient received IV saline, 1 L. He received IV vancomycin and IV cefepime. He received IV Zofran and IV morphine. He was given oral Tylenol. I did speak with Dr. Burgos of orthopedics. The patient will be taken to the operating room. He will require surgical washout and hospitalization. The patient is aware of his findings, case management has been involved. DISPOSITION: The patient's presentation and findings warrant a hospital stay. Past Med/Surg History Medical History Anxiety "Severe" Asthma Follows with pulm CAD (coronary artery disease) Mild per 2018 cath per cardio records ([place] ([facility] Cataract bilat. Cervical disc herniation Cervical radiculopathy Congenital stenosis of cervical spine Worst at C5-6 COPD (chronic obstructive pulmonary disease) Follows with pulm Depression Emphysema lung O2 at 3L continuous Follows Dr. Kinsey ([facility]) GERD (gastroesophageal reflux disease) Well controlled and controlled History of pericarditis Occurred around 2012- etiology unknown - treated with mediations- no issues since History of tachycardia Likely related to COPD and hypoxia per cardio records Well controlled with medication Hypertension Migraines History Surgical History History of cardiac cath ~5 years ago, LISA power, no stents>no finding; f/u [facility] History of esophagogastroduodenoscopy (EGD) History of radiofrequency ablation (RFA) of nerve of cervical spine Hx of colonoscopy Hx of external ear surgery reattachment of lt earlobe Hx of hand surgery lt ring finger, reconstruction Hx of myringotomy bilat w/tubes Hx of shoulder surgery rt. S/P epidural steroid injection neck and back Status post carpal tunnel release of both wrists Family History Mother Heart disease Hypertension Grandmother (Paternal) Diabetes Grandfather (Paternal) Heart disease Grandfather (Maternal) Lung disease Social History Smoking Status: Current every day smoker Tobacco Type: Cigarettes Second Hand Exposure: Yes ( smokes); Hx Alcohol Use: No (hx-not in quite some time) Hx Substance Use: No Preferred Language: Setswana Communication Ability: Effective Visual Impairment: No Limitations Hearing Ability: Normal Business Data Analyst Required: No Beliefs That Will Affect Care: None marital status: Current Living Situation: Spouse current occupational status: unemployed Feels Safe at Home: Yes Assistive Devices: Cane, Glasses and Oxygen - Continuous Allergies Allergies Allergy/AdvReac Type Severity Reaction Status Date / Time prednisone Allergy rash Verified 12/26/22 11:25 Home Meds Home Medications Medication Instructions Recorded Confirmed Oxygen Home #1 ea 11/23/19 08/18/22 albuterol sulfate 0.63 mg/3 mL 0.63 mg inhalation BID 11/23/19 12/26/22 solution for nebulization albuterol sulfate 90 mcg/actuation 2 puffs inhalation Q4H PRN 11/23/19 12/26/22 aerosol inhaler Shortness Of Breath benzonatate 100 mg capsule 100 mg PO BID 11/23/19 12/26/22 montelukast 10 mg tablet 10 mg PO HS 11/23/19 12/26/22 (Singulair) roflumilast 500 mcg tablet 500 mcg PO HS 11/23/19 12/26/22 (Daliresp) trazodone 50 mg tablet 100 mg PO HS 11/23/19 12/26/22 duloxetine 30 mg capsule,delayed 30 mg PO QAM 05/15/20 12/26/22 release (Cymbalta) methylprednisolone 8 mg tablet 8 mg PO BID PRN breathing flare up 05/15/20 lisinopril 10 mg tablet (Prinivil) 10 mg PO QAM 06/20/20 12/26/22 baclofen 10 mg tablet 10 mg PO TID 08/18/22 12/26/22 celecoxib 200 mg capsule 200 mg PO BID 08/18/22 12/26/22 oxycodone-acetaminophen 10 mg-325 1 tab PO UD PRN Pain 08/18/22 12/26/22 mg tablet (Percocet) atorvastatin 20 mg tablet 20 mg PO QAM 10/04/22 12/26/22 diclofenac sodium 1 % topical gel 2 g topical QID PRN Pain 10/04/22 12/26/22 diltiazem HCl 360 mg capsule,24 360 mg PO QAM 10/04/22 12/26/22 hr,extended release (Tiadylt ER) docusate sodium 100 mg tablet 100 mg PO QID 10/04/22 11/19/22 duloxetine 60 mg capsule,delayed 60 mg PO QAM 10/04/22 12/26/22 release (Cymbalta) famotidine 20 mg tablet 20 mg PO BID 10/04/22 12/26/22 fluticasone fur. 200 mcg-umeclid 1 inh inhalation QAM 10/04/22 12/26/22 62.5 mcg-vilant 25 mcg inhalat.powder (Trelegy Ellipta) furosemide 20 mg tablet 20 mg PO QAM 10/04/22 12/26/22 ibuprofen 600 mg tablet 600 mg PO TID 10/04/22 12/26/22 ivabradine 5 mg tablet (Corlanor) 5 mg PO BID 10/04/22 12/26/22 metoprolol succinate 25 mg 25 mg PO HS 10/04/22 12/26/22 tablet,extended release 24 hr omeprazole 40 mg capsule,delayed 40 mg PO BID 10/04/22 12/26/22 release Previous Rx's Medication Instructions Recorded gabapentin 600 mg tablet 600 mg PO TID #270 tabs 12/31/21 aspirin 81 mg tablet,delayed 81 mg PO BID 6 weeks #0 tabs 11/20/22 release methylprednisolone 4 mg tablets in 4 mg PO UD #21 ea 12/25/22 a dose pack (Medrol (Sharath)) Results & Data (ED) Vital Signs Vital Signs - 24 hr 12/26/22 09:09 12/26/22 09:22 12/26/22 10:00 Temperature 38.3 C H Temperature Source Oral Pulse Rate 94 H 94 H Pulse Rate [Apical] Pulse Rate [Right Finger] 99 H Pulse Rhythm Regular Pulse Rhythm [Apical] Pulse Rhythm [Right Finger] Regular Pulse Strength Normal Pulse Strength [Right Finger] Normal Respiratory Rate 20 18 Respiratory Effort / Characteristics Non-Labored Non-Labored Respiratory Depth Normal Normal Respiratory Pattern Regular Regular Blood Pressure 151/70 H Blood Pressure [Right Arm] 132/58 L Blood Pressure Mean 97 Blood Pressure Mean [Right Arm] 82 Blood Pressure Position Lying Blood Pressure Position [Right Arm] Lying Pulse Oximetry 96 97 Oxygen Delivery Method Nasal Cannula Nasal Cannula Oxygen Flow Rate 3 2 Sepsis Recent Fever Within 48 Hours Yes Sepsis New/Unexplained Change in Mental Status N/A Sepsis Action Taken by Nursing No Action Required 12/26/22 12:18 12/26/22 15:07 12/26/22 15:15 Temperature 37.6 C H 37.0 C Temperature Source Oral Temporal Artery Scan Pulse Rate 89 Pulse Rate [Apical] 120 H 119 H Pulse Rate [Right Finger] Pulse Rhythm Pulse Rhythm [Apical] Regular Regular Pulse Rhythm [Right Finger] Pulse Strength Pulse Strength [Right Finger] Respiratory Rate 18 20 17 Respiratory Effort / Characteristics Non-Labored Spontaneous Non-Labored Spontaneous Respiratory Depth Normal Normal Respiratory Pattern Regular Regular Blood Pressure 136/69 Blood Pressure [Right Arm] 117/83 108/64 Blood Pressure Mean Blood Pressure Mean [Right Arm] 94 78 Blood Pressure Position Blood Pressure Position [Right Arm] Semi-fowlers Semi-fowlers Pulse Oximetry 97 99 99 Oxygen Delivery Method Nasal Cannula Oxymask Oxymask Oxygen Flow Rate 2 9 9 Sepsis Recent Fever Within 48 Hours Sepsis New/Unexplained Change in Mental Status Sepsis Action Taken by Nursing 12/26/22 15:25 12/26/22 15:35 12/26/22 15:45 Temperature 36.8 C Temperature Source Oral Pulse Rate Pulse Rate [Apical] 111 H 102 H 99 H Pulse Rate [Right Finger] Pulse Rhythm Pulse Rhythm [Apical] Regular Regular Regular Pulse Rhythm [Right Finger] Pulse Strength Pulse Strength [Right Finger] Respiratory Rate 20 17 19 Respiratory Effort / Characteristics Non-Labored Spontaneous Non-Labored Spontaneous Non-Labored Spontaneous Respiratory Depth Normal Normal Normal Respiratory Pattern Regular Regular Regular Blood Pressure Blood Pressure [Right Arm] 109/59 L 99/57 L 105/56 L Blood Pressure Mean Blood Pressure Mean [Right Arm] 75 71 72 Blood Pressure Position Blood Pressure Position [Right Arm] Semi-fowlers Semi-fowlers Semi-fowlers Pulse Oximetry 99 96 94 Oxygen Delivery Method Oxymask Nasal Cannula Nasal Cannula Oxygen Flow Rate 5 3 3 Sepsis Recent Fever Within 48 Hours Sepsis New/Unexplained Change in Mental Status Sepsis Action Taken by Residential Medications Current Medication List: was personally reviewed by me Laboratory Data Attestation: I reviewed the patient's lab results. 12/26/22 09:33 12/26/22 09:33 Lab Results 12/26/22 12/26/22 12/26/22 Range/Units 09:33 09:33 09:33 WBC 20.79 H (4.8-10.8) K/ul RBC 3.68 L (4.70-6.10) M/uL Hgb 11.2 L (14.0-18.0) g/dl Hct 32.6 L (42.0-52.0) % MCV 88.6 (80.0-100.0) fL MCH 30.4 (25.0-34.0) pg MCHC 34.4 (32.0-36.0) g/dL RDW Std Deviation 40.3 (36.4-46.3) fL RDW Coeff of Olivia 12.4 (11.5-14.5) % Plt Count 255 (130-400) K/uL MPV 9.7 (9.4-12.4) fL Immature Gran % (Auto) 1.3 % Neut % (Auto) 85.0 % Lymph % (Auto) 6.2 % [place] % (Auto) 7.0 % Eos % (Auto) 0.3 % Baso % (Auto) 0.2 % Neut # (Auto) 17.67 H (1.40-6.50) K/uL Lymph # (Auto) 1.29 (1.2-3.4) K/uL [place] # (Auto) 1.46 H (0.11-0.59) K/uL Eos # (Auto) 0.07 (0-0.50) K/uL Baso # (Auto) 0.04 (0-0.2) K/uL Immature Gran # (Auto) 0.26 H (0.01-0.20) K/uL ESR 46 H (0-20) mm/hr Sodium 134 L (136-145) mmol/L Potassium 4.1 (3.5-5.1) mmol/L Chloride 99 (98-107) mmol/L Carbon Dioxide 26 (21-32) mmol/L Anion Gap 9 (3-11) BUN 14 (6-23) mg/dl Creatinine 0.92 (0.6-1.4) mg/dl Est Cr Clr Drug Dosing 109.7 ml/min Est GFR ( Amer) 111.2 ml/min Est GFR (Non-Af Amer) 96.0 ml/min BUN/Creatinine Ratio 15.2 (10-20) Glucose 154 H (70-99(Fasting)) mg/dl Lactate (0.4-2.0) mmol/L Calcium 9.2 (8.6-10.3) mg/dl Total Bilirubin 0.4 (0.2-1.0) mg/dl AST 8 L (13-39) U/L ALT 9 (7-52) U/L Alkaline Phosphatase 107 H (34-104) U/L C-Reactive Protein 16.21 H (0-0.5) mg/dl Total Protein 6.7 (6.0-8.3) gm/dl Albumin 3.9 (3.4-5.0) gm/dl Globulin 2.8 (2.5-4.0) gm/dl Albumin/Globulin Ratio 1.4 (0.9-2) Procalcitonin (0-0.5) ng/ml SARS-CoV-2, RNA, NAAT (NEGATIVE) 12/26/22 12/26/22 12/26/22 Range/Units 09:33 09:33 09:49 WBC (4.8-10.8) K/ul RBC (4.70-6.10) M/uL Hgb (14.0-18.0) g/dl Hct (42.0-52.0) % MCV (80.0-100.0) fL MCH (25.0-34.0) pg MCHC (32.0-36.0) g/dL RDW Std Deviation (36.4-46.3) fL RDW Coeff of Olivia (11.5-14.5) % Plt Count (130-400) K/uL MPV (9.4-12.4) fL Immature Gran % (Auto) % Neut % (Auto) % Lymph % (Auto) % [place] % (Auto) % Eos % (Auto) % Baso % (Auto) % Neut # (Auto) (1.40-6.50) K/uL Lymph # (Auto) (1.2-3.4) K/uL [place] # (Auto) (0.11-0.59) K/uL Eos # (Auto) (0-0.50) K/uL Baso # (Auto) (0-0.2) K/uL Immature Gran # (Auto) (0.01-0.20) K/uL ESR (0-20) mm/hr Sodium (136-145) mmol/L Potassium (3.5-5.1) mmol/L Chloride (98-107) mmol/L Carbon Dioxide (21-32) mmol/L Anion Gap (3-11) BUN (6-23) mg/dl Creatinine (0.6-1.4) mg/dl Est Cr Clr Drug Dosing ml/min Est GFR ( Amer) ml/min Est GFR (Non-Af Amer) ml/min BUN/Creatinine Ratio (10-20) Glucose (70-99(Fasting)) mg/dl Lactate 1.5 (0.4-2.0) mmol/L Calcium (8.6-10.3) mg/dl Total Bilirubin (0.2-1.0) mg/dl AST (13-39) U/L ALT (7-52) U/L Alkaline Phosphatase (34-104) U/L C-Reactive Protein (0-0.5) mg/dl Total Protein (6.0-8.3) gm/dl Albumin (3.4-5.0) gm/dl Globulin (2.5-4.0) gm/dl Albumin/Globulin Ratio (0.9-2) Procalcitonin 0.14 (0-0.5) ng/ml SARS-CoV-2, RNA, NAAT NEGATIVE (NEGATIVE) Administered Medications Hydromorphone HCl (Hydromorphone Inj 1 Mg/Ml Syringe) 0.25 mg IV Q5M PRN PRN Reason: PACU Use Only-Pain Stop: 12/26/22 20:32 Last Admin: 12/26/22 15:35 Dose: 0.25 mg Documented By: LEWIS Discontinued Medications Acetaminophen (Acetaminophen 500 Mg Tab) 1,000 mg PO NOW STA Stop: 12/26/22 09:20 Last Admin: 12/26/22 09:45 Dose: 1,000 mg Documented By: MATTHEW Hydromorphone HCl (Hydromorphone Inj 1 Mg/Ml Syringe) Confirm Administered Dose 1 mg .ROUTE .STK-MED ONE Stop: 12/26/22 15:36 Last Admin: 12/26/22 15:38 Dose: Not Given Documented By: LEWIS Vancomycin HCl 2,500 mg/ (Sodium Chloride) 550 mls @ 200 mls/hr IV NOW ONE Stop: 12/26/22 12:03 Last Admin: 12/26/22 10:32 Dose: 200 mls/hr Documented By: MATTHEW Cefepime HCl (Maxipime) 2,000 mg in 20 mls @ 5 mls/min IV NOW STA; Protocol Stop: 12/26/22 09:22 Last Admin: 12/26/22 09:45 Dose: 5 mls/min Documented By: MATTHEW Sodium Chloride (Nss 1000ml) 1,000 mls @ 999 mls/hr IV .Q1H1M ONE Stop: 12/26/22 10:20 Last Infusion: 12/26/22 11:08 Dose: 0 mls/hr Documented By: Admin: 12/26/22 09:46 Dose: 999 mls/hr Documented By: MATTHEW Ioversol (Optiray 350 100ml) 88 ml IV ONCE ONE Stop: 12/26/22 10:53 Last Admin: 12/26/22 10:54 Dose: 88 ml Documented By: NA Meperidine HCl (Meperidine Hcl 25 Mg/Ml Carp/Vial) Confirm Administered Dose 25 mg .ROUTE .STK-MED ONE Stop: 12/26/22 15:12 Last Admin: 12/26/22 15:13 Dose: Not Given Documented By: LEWIS Meperidine HCl (Meperidine Hcl 25 Mg/Ml Carp/Vial) 12.5 mg IV ONCE ONE Stop: 12/26/22 15:13 Last Admin: 12/26/22 15:13 Dose: 12.5 mg Documented By: LEWIS Morphine Sulfate (Morphine Sulfate 10 Mg/Ml Carp/Vial) 6 mg IV NOW STA Stop: 12/26/22 09:20 Last Admin: 04/02/23 09:45 Dose: Not Given Documented By: MATTHEW Morphine Sulfate (Morphine Sulfate 2 Mg/Ml Carp) Confirm Administered Dose 2 mg .ROUTE .STK-MED ONE Stop: 12/26/22 09:41 Last Admin: 12/26/22 09:45 Dose: 2 mg Documented By: MATTHEW Morphine Sulfate (Morphine Sulfate 4 Mg/Ml 1 Ml Carp\\Vial) Confirm Administered Dose 4 mg .ROUTE .STK-MED ONE Stop: 12/26/22 09:42 Last Admin: 12/26/22 09:44 Dose: 4 mg Documented By: MATTHEW Ondansetron HCl (Ondansetron Inj 2 Mg/Ml 2 Ml Vial) 4 mg IV NOW STA Stop: 12/26/22 09:20 Last Admin: 12/26/22 09:45 Dose: 4 mg Documented By: MATTHEW Sodium Hypochlorite (Dakin's Soln 0.5% Full Strength 473ml Btl) 1 appln EXT ONCE ONE Stop: 12/26/22 12:56 Last Admin: 12/26/22 14:27 Dose: 1 appln Documented By: ED Imaging Data Radiologist's Impression: Hip CT 12/26/22 09:01 CT hip LT w con CLINICAL HISTORY: poss abscess TECHNIQUE: Multidetector row helical CT of the left hip was performed without intravenous contrast. Coronal and sagittal reformations were obtained. Automated dose lowering techniques and/or adjustment according to patient size were utilized for this examination. CT DOSE: 384.59 mGy.cm Comparison: Comparison is made to left hip radiograph 11/19/2022 FINDINGS: The osseous structures are without fracture or dislocation. Patient is status post total hip arthroplasty. No joint effusion is seen. A fluid collection is seen in the anterolateral thigh musculature, likely the tensor fascia dell, measuring 11.3 x 2.1 x 2.1 cm. IMPRESSION: Intramuscular collection likely in the tensor fascia dell concerning for intramuscular abscess. Superficial soft tissue swelling is seen compatible cellulitis versus postsurgical changes. ACT 112: Negative or not required by law. Electronically signed by: Chang Monson M.D. 12/26/2022 11:17 AM Knee X-Ray 12/26/22 09:28 XR knee LT 3V CLINICAL HISTORY: pain to walk TECHNIQUE: 3 views of the left knee were obtained. Comparison: None available at the time of this dictation. FINDINGS: There is no evidence of an acute fracture. Joint spaces are well-preserved. No joint effusion is seen. No soft tissue abnormality is seen. IMPRESSION: No evidence of acute osseous injury. ACT 112: Negative or not required by law. Electronically signed by: hCang Monson M.D. 12/26/2022 9:49 AM Hip X-Ray 12/26/22 11:00 FL hip LT 1V CLINICAL HISTORY: LT ANTERIOR HIP TECHNIQUE: 1 views were obtained with the C-arm in the OR with the above procedure. Total fluoroscopy time was 2.9 seconds. Radiation dose was 0.29 mGy. Comparison: Comparison is made to CT head of 12/26/2022 FINDINGS/IMPRESSION: Intraoperative images were obtained of left hip surgery. A left hip total arthroplasty is in place. Please correlate with intraoperative fluoroscopy and operative report. ACT 112: Negative or not required by law. Electronically signed by: Chang Monson M.D. 12/26/2022 2:57 PM Discharge Plan Visit Data Chief Complaint: Infection Stated Complaint: POST OP HIP SURGERY, POSSIBLE INFECTION ED Provider: Yordan Gonzales Discharge Problem: Abscess of left hip, Cellulitis, Leukocytosis, Status post hip surgery Patient Disposition: Admitted As Inpatient Condition: Fair Discharge Instructions Interventions: ED Discharge Assessment Last Done: 12/26/22 12:18
[2022-12-26] MEDS ORDERED: MoRPHine SULFATE 2 MG/ML CARP ONE (09:40)
[2022-12-26] MEDS ORDERED: MoRPHine SULFATE 4 MG/ML 1 ML CARP\\VIAL ONE (09:41)
--- NOTE | 2022-12-26 09:50 | XRay Report ---
XR knee LT 3V CLINICAL HISTORY: pain to walk TECHNIQUE: 3 views of the left knee were obtained. Comparison: None available at the time of this dictation. FINDINGS: There is no evidence of an acute fracture. Joint spaces are well-preserved. No joint effusion is seen . No soft tissue abnormality is seen. IMPRESSION: No evidence of acute osseous injury. ACT 112: Negative or not required by law. Electronically signed by: Chang Monson M.D. 12/26/2022 9:49 AM
[2022-12-26 10:02] LABS: Basophils # (auto) 0.04 K/uL (0-0.2); Basophils % (auto) 0.2 %; Eosinophils # (auto) 0.07 K/uL (0-0.50); Eosinophils % (auto) 0.3 %; Hematocrit (blood only) 32.6 % (42.0-52.0); Hemoglobin 11.2 g/dl (14.0-18.0); Immature Granulocytes # (auto) 0.26 K/uL (0.01-0.20); Immature Granulocytes % (auto) 1.3 %; Lymphocytes # (auto) 1.29 K/uL (1.2-3.4); Lymphocytes % (auto) 6.2 %; Mean Corpuscular Hemoglobin 30.4 pg (25.0-34.0); Mean Corpuscular Hgb Conc 34.4 g/dL (32.0-36.0); Mean Corpuscular Volume 88.6 fL (80.0-100.0); Mean Platelet Volume 9.7 fL (9.4-12.4); Monocytes # (auto) 1.46 K/uL (0.11-0.59); Neutrophils # (auto) 17.67 K/uL (1.40-6.50); Platelet Count 255 K/uL (130-400); RDW Coefficient of Variation 12.4 % (11.5-14.5); RDW Standard Deviation 40.3 fL (36.4-46.3); Red Blood Count 3.68 M/uL (4.70-6.10); White Blood Count 20.79 K/ul (4.8-10.8)
[2022-12-26 10:19] LABS: Albumin Globulin Ratio 1.4 (0.9-2); Albumin Level 3.9 gm/dl (3.4-5.0); BUN Creatinine Ratio 15.2 (10-20); Bilirubin,Total 0.4 mg/dl (0.2-1.0); C Reactive Protein 16.21 mg/dl (0-0.5); Calcium 9.2 mg/dl (8.6-10.3); Creatinine Clr Calc Pharmacy 109.7 ml/min; Est GFR (African American) 111.2 ml/min; Globulin 2.8 gm/dl (2.5-4.0); Potassium 4.1 mmol/L (3.5-5.1); Total Protein 6.7 gm/dl (6.0-8.3)
[2022-12-26] MEDS ORDERED: OPTIRAY 350 100ml IV ONE (10:52)
--- NOTE | 2022-12-26 11:16 | Anesthesiology Consultation ---
Date of Service December 26, 2022 Assessment & Plan (1) Encounter for pre-operative examination: Chart Review Chart Review: Acceptable Risk for Surgery History Surgery Operation Date: 12/26/22 11:10 Proposed Procedures p Left Anterior Hip Incision and Drainage, Poly Exchange(Left) - Nayan Burgos, Height/Weight Height: 5 ft 8 in Weight: 101.6 kg Allergies Allergy/AdvReac Type Severity Reaction Status Date / Time prednisone Allergy rash Verified 11/19/22 06:51 Medications Home Medications Medication Instructions Recorded Confirmed Last Taken Oxygen Home #1 ea 11/23/19 08/18/22 Unknown albuterol sulfate 0.63 mg/3 mL 0.63 mg inhalation BID 11/23/19 11/19/22 11/18/22 11:00 solution for nebulization albuterol sulfate 90 mcg/actuation 2 puffs inhalation Q4H PRN 11/23/19 11/19/22 11/15/22 aerosol inhaler Shortness Of Breath benzonatate 100 mg capsule 100 mg PO BID 11/23/19 11/19/22 11/19/22 04:00 montelukast 10 mg tablet 10 mg PO HS 11/23/19 11/19/22 11/18/22 22:00 (Singulair) roflumilast 500 mcg tablet 500 mcg PO HS 11/23/19 11/19/22 11/18/22 22:00 (Daliresp) trazodone 50 mg tablet 100 mg PO HS 11/23/19 11/19/22 11/18/22 22:00 duloxetine 30 mg capsule,delayed 30 mg PO QAM 05/15/20 11/19/22 11/19/22 04:00 release (Cymbalta) methylprednisolone 8 mg tablet 8 mg PO BID PRN breathing flare up 05/15/20 11/19/22 11/05/22 lisinopril 10 mg tablet (Prinivil) 10 mg PO QAM 06/20/20 11/19/22 11/18/22 22:00 gabapentin 600 mg tablet 600 mg PO TID #270 tabs 12/31/21 11/19/22 11/19/22 04:00 baclofen 10 mg tablet 10 mg PO TID 08/18/22 11/19/22 11/18/22 22:00 celecoxib 200 mg capsule 200 mg PO BID 08/18/22 11/19/22 11/19/22 04:00 oxycodone-acetaminophen 10 mg-325 1 tab PO UD PRN Pain 08/18/22 11/19/22 04:00 mg tablet (Percocet) atorvastatin 20 mg tablet 20 mg PO QAM 10/04/22 11/19/22 11/18/22 11:00 diclofenac sodium 1 % topical gel 2 g topical QID PRN Pain 10/04/22 11/19/22 11/05/22 diltiazem HCl 360 mg capsule,24 360 mg PO QAM 10/04/22 11/19/22 11/18/22 11:00 hr,extended release (Tiadylt ER) docusate sodium 100 mg tablet 100 mg PO QID 10/04/22 11/19/22 11/18/22 11:00 duloxetine 60 mg capsule,delayed 60 mg PO QAM 10/04/22 11/19/22 11/19/22 04:00 release (Cymbalta) famotidine 20 mg tablet 20 mg PO BID 10/04/22 11/19/22 11/19/22 04:00 fluticasone fur. 200 mcg-umeclid 1 inh inhalation QAM 10/04/22 11/19/22 11/18/22 11:00 62.5 mcg-vilant 25 mcg inhalat.powder (Trelegy Ellipta) furosemide 20 mg tablet 20 mg PO QAM 10/04/22 11/19/22 11/18/22 11:00 ibuprofen 600 mg tablet 600 mg PO TID 10/04/22 11/19/22 11/12/22 ivabradine 5 mg tablet (Corlanor) 5 mg PO BID 10/04/22 11/19/22 11/19/22 04:00 metoprolol succinate 25 mg 25 mg PO HS 10/04/22 11/19/22 11/18/22 22:00 tablet,extended release 24 hr omeprazole 40 mg capsule,delayed 40 mg PO BID 10/04/22 11/19/22 11/19/22 04:00 release aspirin 81 mg tablet,delayed 81 mg PO BID 6 weeks #0 tabs 11/20/22 Unknown release methylprednisolone 4 mg tablets in 4 mg PO UD #21 ea 12/25/22 Unknown a dose pack (Medrol (Sharath)) Active Medications Generic Name Dose Route Start Last Admin Trade Name Freq PRN Reason Stop Dose Admin Vancomycin HCl 2,500 mg/ 550 mls @ 200 mls/hr 12/26/22 09:19 12/26/22 10:32 Sodium Chloride IV 12/26/22 12:03 200 mls/hr NOW ONE Administration Past Medical History Medical History Anxiety "Severe" Asthma Follows with pulm CAD (coronary artery disease) Mild per 2018 cath per cardio records ([facility] Cataract bilat. Cervical disc herniation Cervical radiculopathy Congenital stenosis of cervical spine Worst at C5-6 COPD (chronic obstructive pulmonary disease) Follows with pulm Depression Emphysema lung O2 at 3L continuous Follows Dr. Kinsey ([place]) GERD (gastroesophageal reflux disease) Well controlled and controlled History of pericarditis Occurred around 2012- etiology unknown - treated with mediations- no issues since History of tachycardia Likely related to COPD and hypoxia per cardio records Well controlled with medication Hypertension Migraines History Past Family History Family History Mother Heart disease Hypertension Grandmother (Paternal) Diabetes Grandfather (Paternal) Heart disease Grandfather (Maternal) Lung disease Past Surgical History Surgical History History of cardiac cath ~5 years ago, LISA power, no stents>no finding; f/u [facility] History of esophagogastroduodenoscopy (EGD) History of radiofrequency ablation (RFA) of nerve of cervical spine Hx of colonoscopy Hx of external ear surgery reattachment of lt earlobe Hx of hand surgery lt ring finger, reconstruction Hx of myringotomy bilat w/tubes Hx of shoulder surgery rt. S/P epidural steroid injection neck and back Status post carpal tunnel release of both wrists Social History Smoking Status: Current every day smoker tobacco type: cigarettes Hx Alcohol Use: No (hx-not in quite some time) Hx Substance Use: No substance use type: does not use Physical Exam Vital Signs Last Vital Signs Temp 38.3 C H 12/26/22 09:09 Pulse 99 H 12/26/22 10:00 Resp 18 04/02/23 10:00 BP 132/58 L 12/26/22 10:00 Pulse Ox 97 12/26/22 10:00 O2 Del Method Nasal Cannula 12/26/22 10:00 O2 Flow Rate 2 12/26/22 10:00 Testing Laboratory Results 12/26/22 09:33 12/26/22 09:33 Electrocardiogram Date: 10/12/22 Findings: + NSR @ (62) Echocardiogram Date: 12/03/21 EF: 55-60% Other Findings: + diastolic dysfunction (mild) Valvular Disease: + no significant valvular disease
--- NOTE | 2022-12-26 11:18 | CT Scan Report ---
CT hip LT w con CLINICAL HISTORY: poss abscess TECHNIQUE: Multidetector row helical CT of the left hip was performed without intravenous contrast. C oronal and sagittal reformations were obtained. Automated dose lowering techniques and/or adjustment according to patient size were utilized for this examination. CT DOSE: 384.59 mGy.cm Comparison: Comparison is made to left hip radiograph 11/19/2022 FINDINGS: The osseous structures are without fracture or dislocation. Patient is status post total hip arthropl asty. No joint effusion is seen. A fluid collection is seen in the anterolateral thigh musculature, likely the tensor fascia dell, measuring 11.3 x 2.1 x 2.1 cm. IMPRESSION: Intramuscular collection likely in the tensor fascia dell concerning for intramuscular abscess. Super ficial soft tissue swelling is seen compatible cellulitis versus postsurgical changes. ACT 112: Negative or not required by law. Electronically signed by: Chang Monson M.D. 12/26/2022 11:17 AM
--- NOTE | 2022-12-26 11:20 | History & Physical Report ---
Date of Service December 26, 2022 Assessment & Plan (1) Status post left hip replacement: He will be admitted to the orthopedic service. He will undergo an irrigation debridement and poly exchange of his left hip. Postoperatively he will be started on antibiotics and infectious disease will be consulted. We will treat him in accordance with the wound cultures. History of Present Illness Chief Complaint: Left periprosthetic hip infection. Primary Care Provider: Mike Singh MD Tank is a pleasant 52-year-old male who underwent a left anterior total of arthroplasty on November 19, 2022. He did not have any complications postoperatively. His incision healed uneventfully. He has been doing really well until about 3 days ago. He began noticing pain and redness in his left gluteal region. The redness then became a little bit worse yesterday. Today he says that he can no longer put weight on his hip. Its become much more painful. He was feeling sick. He came to the emergency room. Lab work was suggestive of infection. CT scan did show a deep infection of the left hip. Please be admitted to the orthopedic service for irrigation and debridement and poly exchange of his left hip.. Allergies Allergy/AdvReac Type Severity Reaction Status Date / Time prednisone Allergy rash Verified 11/19/22 06:51 Home Medications Medication Instructions Recorded Confirmed Type Oxygen Home #1 ea 11/23/19 08/18/22 History albuterol sulfate 0.63 mg/3 mL 0.63 mg inhalation BID 11/23/19 11/19/22 History solution for nebulization albuterol sulfate 90 mcg/actuation 2 puffs inhalation Q4H PRN 11/23/19 11/19/22 History aerosol inhaler Shortness Of Breath benzonatate 100 mg capsule 100 mg PO BID 11/23/19 11/19/22 History montelukast 10 mg tablet 10 mg PO HS 11/23/19 11/19/22 History (Singulair) roflumilast 500 mcg tablet 500 mcg PO HS 11/23/19 11/19/22 History (Daliresp) trazodone 50 mg tablet 100 mg PO HS 11/23/19 11/19/22 History duloxetine 30 mg capsule,delayed 30 mg PO QAM 05/15/20 11/19/22 History release (Cymbalta) methylprednisolone 8 mg tablet 8 mg PO BID PRN breathing flare up 05/15/20 11/19/22 History lisinopril 10 mg tablet (Prinivil) 10 mg PO QAM 06/20/20 11/19/22 History gabapentin 600 mg tablet 600 mg PO TID #270 tabs 12/31/21 11/19/22 Rx baclofen 10 mg tablet 10 mg PO TID 08/18/22 11/19/22 History celecoxib 200 mg capsule 200 mg PO BID 08/18/22 11/19/22 History oxycodone-acetaminophen 10 mg-325 1 tab PO UD PRN Pain 08/18/22 11/19/22 History mg tablet (Percocet) atorvastatin 20 mg tablet 20 mg PO QAM 10/04/22 11/19/22 History diclofenac sodium 1 % topical gel 2 g topical QID PRN Pain 10/04/22 11/19/22 History diltiazem HCl 360 mg capsule,24 360 mg PO QAM 10/04/22 11/19/22 History hr,extended release (Tiadylt ER) docusate sodium 100 mg tablet 100 mg PO QID 10/04/22 11/19/22 History duloxetine 60 mg capsule,delayed 60 mg PO QAM 10/04/22 11/19/22 History release (Cymbalta) famotidine 20 mg tablet 20 mg PO BID 10/04/22 11/19/22 History fluticasone fur. 200 mcg-umeclid 1 inh inhalation QAM 10/04/22 11/19/22 History 62.5 mcg-vilant 25 mcg inhalat.powder (Trelegy Ellipta) furosemide 20 mg tablet 20 mg PO QAM 10/04/22 11/19/22 History ibuprofen 600 mg tablet 600 mg PO TID 10/04/22 11/19/22 History ivabradine 5 mg tablet (Corlanor) 5 mg PO BID 10/04/22 11/19/22 History metoprolol succinate 25 mg 25 mg PO HS 10/04/22 11/19/22 History tablet,extended release 24 hr omeprazole 40 mg capsule,delayed 40 mg PO BID 10/04/22 11/19/22 History release aspirin 81 mg tablet,delayed 81 mg PO BID 6 weeks #0 tabs 11/20/22 Rx release methylprednisolone 4 mg tablets in 4 mg PO UD #21 ea 12/25/22 Rx a dose pack (Medrol (Sharath)) Past Med/Surg History Medical History Anxiety "Severe" Asthma Follows with pulm CAD (coronary artery disease) Mild per 2018 cath per cardio records ([place] [facility])) Cataract bilat. Cervical disc herniation Cervical radiculopathy Congenital stenosis of cervical spine Worst at C5-6 COPD (chronic obstructive pulmonary disease) Follows with pulm Depression Emphysema lung O2 at 3L continuous Follows Dr. Kinsey ([place]) GERD (gastroesophageal reflux disease) Well controlled and controlled History of pericarditis Occurred around 2012- etiology unknown - treated with mediations- no issues since History of tachycardia Likely related to COPD and hypoxia per cardio records Well controlled with medication Hypertension Migraines History Surgical History History of cardiac cath ~5 years ago, LISA opwer, no stents>no finding; f/u dr [facility] History of esophagogastroduodenoscopy (EGD) History of radiofrequency ablation (RFA) of nerve of cervical spine Hx of colonoscopy Hx of external ear surgery reattachment of lt earlobe Hx of hand surgery lt ring finger, reconstruction Hx of myringotomy bilat w/tubes Hx of shoulder surgery rt. S/P epidural steroid injection neck and back Status post carpal tunnel release of both wrists Family History Mother Heart disease Hypertension Grandmother (Paternal) Diabetes Grandfather (Paternal) Heart disease Grandfather (Maternal) Lung disease Social History Smoking Status: Current every day smoker Tobacco Type: Cigarettes Second Hand Exposure: Yes ( smokes); Hx Alcohol Use: No (hx-not in quite some time) Hx Substance Use: No Preferred Language: Samoan Communication Ability: Effective Visual Impairment: No Limitations Hearing Ability: Normal Consulting Intern Required: No Beliefs That Will Affect Care: None marital status: Current Living Situation: Spouse current occupational status: unemployed Feels Safe at Home: Yes Assistive Devices: Cane, Glasses and Oxygen - Continuous Review of Systems All systems reviewed & are unremarkable except as noted in HPI & below. Physical Exam On physical examination of the left hip, there is redness around the gluteal region. The incision looks great. The incision is fully healed. He does have pain with range of motion of his hip. His pain radiates down towards his knee.. Constitutional WD/WN, vitals as above Eyes PERRL, conjunctivae normal, anicteric sclerae ENMT external ear and nose normal, oropharynx normal Neck trachea midline, no thyromegaly Respiratory normal respiratory effort, lungs clear to auscultation Cardiovascular RRR, no murmur, no edema Gastrointestinal (Abdomen) normal bowel sounds, soft, nontender, no hepatosplenomegaly Skin no rashes, warm and dry Psychiatric A+Ox3, euthymic affect Results & Data Results & Data Laboratory Results White blood cell count, sed rate, and CRP were all elevated.. Diagnostic Findings CT scan of the left hip was reviewed personally by myself and it does show an abscess that tracks down towards the hip joint.. PG Care Time/CCT Total # of Minutes Spent Total Time Spent with Patient: Total time spent is greater than 50% in coordination of care (as documented) at patient's floor/unit and/or counseling patient: Coding Level of Care Code 01149 INT INP/OBS CARE 2/55MIN (57 - DECISION FOR SURGERY) Diagnoses Status post left hip replacement Z96.642
[2022-12-26] MEDS ORDERED: MIDAZOLAM HCL 1 MG/ML 2ML VIAL ONE (11:34)
[2022-12-26] MEDS ORDERED: LIDOCAINE 2% MPF LOCAL 5 ML VIAL ONE (11:35)
[2022-12-26] MEDS ORDERED: fentaNYL citrate PF 100 MCG/2 ML VIAL ONE (11:35)
[2022-12-26] MEDS ORDERED: PROPOFOL IV EMULSION 10 MG/ML 20 ML VIAL IV ONE (11:36)
[2022-12-26] MEDS ORDERED: ROCURONIUM BROMIDE 10 MG/ML 5 ML VIAL IV ONE (11:36)
[2022-12-26] MEDS ORDERED: ONDANSETRON INJ 2 MG/ML 2 ML VIAL ONE (11:36)
[2022-12-26] MEDS ORDERED: ALBUTEROL 0.083% NEBU SOLN 3 ML VIAL INH PRN (12:31)
[2022-12-26] MEDS ORDERED: ATROPINE SULFATE 0.1 MG/ML 10ML SYR IV PRN (12:31)
[2022-12-26] MEDS ORDERED: KETOROLAC 30 MG/ML VIAL IV PRN (12:31)
[2022-12-26] MEDS ORDERED: ONDANSETRON INJ 2 MG/ML 2 ML VIAL IV PRN ×2 (12:31→15:57)
[2022-12-26] MEDS ORDERED: HYDROmorphone INJ 1 MG/ML SYRINGE IV PRN (12:31)
[2022-12-26] MEDS ORDERED: DAKIN'S SOLN 0.5% FULL STRENGTH 473ML BTL EXT ONE (12:55)
[2022-12-26] MEDS ORDERED: DEXAMETHASONE SOD INJ 4 MG/ML VIAL ONE (12:57)
[2022-12-26] MEDS ORDERED: HYDROmorphone INJ 2 MG/ML SYR/VIAL ONE (12:57)
[2022-12-26] MEDS ORDERED: PHENYLEPHRINE 100MCG/ML 5ML SYR ONE (13:07)
[2022-12-26] MEDS ORDERED: ePHEDrine sulfate 50 MG/ML SYR ONE (13:08)
[2022-12-26] MEDS ORDERED: SUGAMMADEX SODIUM 200 MG/2 ML VIAL IV ONE (13:50)
[2022-12-26] MEDS ORDERED: KETOROLAC 30 MG/ML VIAL ONE (14:50)
--- NOTE | 2022-12-26 14:58 | Fluoroscopy Report ---
FL hip LT 1V CLINICAL HISTORY: LT ANTERIOR HIP TECHNIQUE: 1 views were obtained with the C-arm in the OR with the above procedure. Total fluoroscopy time was 2.9 seconds. Radiation dose was 0.29 mGy. Comparison: Comparison is made to CT head of 12/26/2022 FINDINGS/IMPRESSION: Intraoperative images were obtained of left hip surgery. A left hip total arthro plasty is in place. Please correlate with intraoperative fluoroscopy and operative report. ACT 112: Negative or not required by law. Electronically signed by: Chang Monson M.D. 12/26/2022 2:57 PM
--- NOTE | 2022-12-26 15:07 | Operative Report ---
PG Post Operative Report Pre & Post Diagnosis Operation Date: 12/26/22 11:10 Pre-Op Diagnosis: Left periprosthetic hip infection Post-Op Diagnosis: Left periprosthetic hip infection I identified the patient and participated in the time-out.: Yes Procedure Operation Date: 12/26/22 11:10 Actual Procedures p Left Anterior Hip Incision and Drainage with ceramic head and polyethylene liner exchange (Left) - Nayan Burgos DO Surgeon Nayan Burgos DO Dining Room Manager Jhony Carmichael PA-C Estimated Blood Loss 150 Findings Consistent with Post-Op Diagnosis Specimens Cultures Description of Procedure On December 26, 2022 Tank came to [facility] emergency room with complaints of severe left hip pain. Clinical exam, laboratory work, and CT scan were all diagnostic for deep periprosthetic joint infection. He was taken immediately over to the operating room. The operative extremity was identified and signed. He was given a preoperative antibiotic. He was taken back to the operative room and laid on the table in supine position. He was put under general anesthesia. The left hip was brought out on a Purist leg positioner. The left hip was then prepped and draped in sterile fashion. A timeout was done. The patient and the operative extremity was properly identified. The previous anterior incision was opened back up. Dissection was taken down through the fascia. The interval was developed between the rectus and the tensor. Once the deep layer was exposed there was a large abscess that was decompressed from the wound. Cultures were taken. The wound was then irrigated. The capsule was opened up. The hip was then dislocated. The femoral head was then removed. The acetabulum was exposed. The acetabular line r was then removed. The wound was then irrigated once again. Surrounding soft tissues were debrided with the cautery and a sharp knife to remove all infectious appearing tissue. A 3-minute dilute Betadine lavage was then done. The hip was then irrigated with 3 L of normal saline solution. A 3-minute full strength Dakin's solution lavage was then done. The hip was then irrigated with 3 L of normal saline solution. The complements were then scrubbed with a toothbrush and a Betadine scrub brush. The hip was then irrigated with an additional 3 L of normal saline solution. Hemostasis was obtained. The wound was then loosely closed with #2 nylon suture. All drapes were removed. All gowns and gloves were removed. The surgeon scrubbed back in. The hip was reprepped and redraped. A sterile table was then brought in. The acetabulum was then exposed. A 46 mm acetabulum for 32 head was then snapped into place. The proximal femur was then exposed. A 32 mm head with a +3.5 neck was then impacted into place. The hip was then reduced. Final fluoroscopic images showed anatomic reduction of the hip. The wound was then lightly irrigated. A drain was placed. The fascia was closed with #1 PDS suture. The deep subcutaneous layer was closed with 2-0 Vicryl. Skin was closed with 3-0 Vicryl and ricco. He was then placed in a soft dressing. He was then extubated and transferred to a hospital bed. He was taken to the postanesthesia care unit in stable condition. He tolerated the procedure well. Jhony Carmichael PA-C, was present for the entire procedure. He was critical for patient positioning, prepping, draping, retraction exposure, wound closure and application of sterile dressing. I attest to the content of the Intraoperative Record and any orders documented therein. Any exceptions are noted below.
[2022-12-26] MEDS ORDERED: MEPERIDINE HCL 25 MG/ML CARP/VIAL ONE (15:11)
[2022-12-26] MEDS ORDERED: MEPERIDINE HCL 25 MG/ML CARP/VIAL IV ONE (15:12)
[2022-12-26] MEDS ORDERED: HYDROmorphone INJ 1 MG/ML SYRINGE ONE (15:35)
[2022-12-26] MEDS ORDERED: NALOXONE HCL 0.4 MG/1 ML VIAL/CARP IV PRN (15:57)
[2022-12-26] MEDS ORDERED: bisacodyL 10 MG SUPP PR PRN (15:57)
[2022-12-26] MEDS ORDERED: ALBUTEROL HFA 8 GM INHALER INH PRN (15:57)
[2022-12-26] MEDS ORDERED: MAGNESIUM HYDROXIDE SUSP 30 ML UDC PO PRN (15:57)
[2022-12-26] MEDS ORDERED: METOCLOPRAMIDE HCL INJ 5 MG/ML 2 ML VIAL IV PRN (15:57)
--- NOTE | 2022-12-26 16:00 | Anesthesiology Progress Note ---
Date of Service December 26, 2022 Anesthesia Post Procedure Vital Signs Vital Signs: Temp Pulse Pulse Pulse Resp BP BP 12/26/22 15:55 94 H 16 113/56 L 12/26/22 15:45 36.8 C 99 H 19 105/56 L 12/26/22 15:35 102 H 17 99/57 L 12/26/22 15:25 111 H 20 109/59 L 12/26/22 15:15 119 H 17 108/64 12/26/22 15:07 37.0 C 120 H 20 117/83 12/26/22 12:18 37.6 C H 89 18 136/69 12/26/22 10:00 99 H 18 132/58 L 12/26/22 09:22 94 H 12/26/22 09:09 38.3 C H 94 H 20 151/70 H Pulse Ox O2 Del Method O2 Flow Rate 12/26/22 15:55 95 Nasal Cannula 3 12/26/22 15:45 94 Nasal Cannula 3 12/26/22 15:35 96 Nasal Cannula 3 12/26/22 15:25 99 Oxymask 5 12/26/22 15:15 99 Oxymask 9 12/26/22 15:07 99 Oxymask 9 12/26/22 12:18 97 Nasal Cannula 2 12/26/22 10:00 97 Nasal Cannula 2 12/26/22 09:22 12/26/22 09:09 96 Nasal Cannula 3 Pain Intensity Left Hip: Pain Intensity: 2 Transfer of Care Handoff Completed per policy Notes Mental Status: alert / awake / arousable Patient Amnestic to Procedure: Yes Nausea / Vomiting: adequately controlled Pain: adequately controlled Airway Patency, RR, SpO2: stable & adequate BP & HR: stable & adequate Hydration State: stable & adequate Anesthetic Complications: no major complications apparent
[2022-12-26] MEDS: SODIUM CHLORIDE 0.9% 1000ML 1,000 ML IV SCH (16:38)
--- NOTE | 2022-12-26 16:52 | Hospitalist Consultation ---
Date of Consultation December 26, 2022 Assessment & Plan (1) Abscess of left hip: Tank is a 52-year-old male with a past medical history of left hip osteoarthritis, pulmonary emphysema, CAD, hyperlipidemia, GERD, hypertension, depression, tobacco use who Left hip abscess/septic joint S/p left TKA 11/20/2022 Returns for management of left periprosthetic hip infection, s/p left anterior hip incision and drainage with ceramic head and polyethylene liner exchange 12/26/2022 Presenting leukocytosis of 20.79 with neutrophilic predominance, ESR 46, CRP 16 Infectious disease consulted by primary team for additional recommendations, received preoperative vancomycin has been continued on cefepime x1 dose which has not been continued Blood cultures and left hip surgical cultures are pending Left hip surgical cultures Gram stain shows many gram-positive cocci, reasonable to continue vancomycin and discontinue cefepime/gram-negative coverage pending culture results at this time (2) Emphysema lung: Pulmonary emphysema Continue Anoro, Daliresp, Singulair Continue baseline 3 L O2, titrate as needed to maintain SPO2 89-94% Do not hyper-oxygenate greater than 94% due to COPD physiology Pulmonary function testing 08/2022: FVC 2.35% (49% predicted), FEV1 1.02 (27% predicted), FEV1/FVC ratio 43, reduced; DLCO not reported. Consistent with obstructive lung disease (3) COPD (chronic obstructive pulmonary disease): - As above (4) CAD (coronary artery disease): CAD Continue beta-ruth, diltiazem Resume lisinopril and Lasix 24 hours postop if renal function normal and hypertensive, otherwise delay and resume in 48 hours EKG 10/12/2022 reviewed, QTc 422, normal sinus rhythm, no ST segment changes or T wave inversions. Echo 12/03/2021: LV SF normal, mild tricuspid regurg, trace pulmonic insufficiency. Mild grade 1 diastolic dysfunction. EF 55-60%. No history of heart failure. Patient has had inappropriate sinus tachycardia which is improved on ivabradine. May continue this, is bringing from home tomorrow. Hold along with beta-ruth for bradycardia if experience postop - Continue Atorvastatin (5) GERD (gastroesophageal reflux disease): GERD Continue Pepcid In the postop period would increase from home omeprazole 20 mg twice daily to 40 mg twice daily; Protonix while inpatient (6) Anxiety: Duloxetine 60 mg delayed release daily (7) Hypertension: Hypertension Diltiazem, metoprolol, lisinopril, Lasix as otherwise noted Plan DVT prophylaxis: Per primary team, currently on aspirin twice daily CODE STATUS: Full code History of Present Illness Attending Physician: Nayan Burgos DO History of Present Illness Tank is seen at the bedside. He presented for a left hip revision due to severe pain which she is aware was from an infection after TKA. He reports he feels well postop, still a little groggy and tight in the chest but denies chest pain, chest pressure, shortness of breath, wheezing, difficulty breathing. He reports his pain is greatly improved, and the pain in his left hip has gone from "you need a higher scale, up to 50 "/10 down to around a 4 out of 10 and is greatly improved. He is not having fever, chills, sweats. He has intact sensation to soft touch in his feet bilaterally is able to wiggle his toes. He reports he took medicines yesterday, is not sure when he last took his lisinopril. Reviewed meds with patient at bedside, he reports that his will bring in his Corlanor which works extremely well for his sinus tachycardia and related symptoms he is. He does use Trelegy at home, and has been using this as directed with good benefit. He is a little hungry, but otherwise has no questions or concerns at the bedside. Social history, family history, allergies, and history reviewed at bedside reviewed plan of care including antibiotic decisions, home medications, DVT prophylaxis, and pain control. Patient has no additional questions or concerns at time of visit. Allergies Allergy/AdvReac Type Severity Reaction Status Date / Time prednisone Allergy rash Verified 12/26/22 11:25 Home Medications Medication Instructions Recorded Confirmed Type Oxygen Home #1 ea 11/23/19 08/18/22 History albuterol sulfate 0.63 mg/3 mL 0.63 mg inhalation BID 11/23/19 12/26/22 History solution for nebulization albuterol sulfate 90 mcg/actuation 2 puffs inhalation Q4H PRN 11/23/19 12/26/22 History aerosol inhaler Shortness Of Breath benzonatate 100 mg capsule 100 mg PO BID 11/23/19 12/26/22 History montelukast 10 mg tablet 10 mg PO HS 11/23/19 12/26/22 History (Singulair) roflumilast 500 mcg tablet 500 mcg PO HS 11/23/19 12/26/22 History (Daliresp) trazodone 50 mg tablet 100 mg PO HS 11/23/19 12/26/22 History duloxetine 30 mg capsule,delayed 30 mg PO QAM 05/15/20 12/26/22 History release (Cymbalta) methylprednisolone 8 mg tablet 8 mg PO BID PRN breathing flare up 05/15/20 12/26/22 History lisinopril 10 mg tablet (Prinivil) 10 mg PO QAM 06/20/20 12/26/22 History gabapentin 600 mg tablet 600 mg PO TID #270 tabs 12/31/21 12/26/22 Rx baclofen 10 mg tablet 10 mg PO TID 08/18/22 12/26/22 History celecoxib 200 mg capsule 200 mg PO BID 08/18/22 12/26/22 History oxycodone-acetaminophen 10 mg-325 1 tab PO UD PRN Pain 08/18/22 12/26/22 History mg tablet (Percocet) atorvastatin 20 mg tablet 20 mg PO QAM 10/04/22 12/26/22 History diclofenac sodium 1 % topical gel 2 g topical QID PRN Pain 10/04/22 12/26/22 History diltiazem HCl 360 mg capsule,24 360 mg PO QAM 10/04/22 12/26/22 History hr,extended release (Tiadylt ER) docusate sodium 100 mg tablet 100 mg PO QID 10/04/22 11/19/22 History duloxetine 60 mg capsule,delayed 60 mg PO QAM 10/04/22 12/26/22 History release (Cymbalta) famotidine 20 mg tablet 20 mg PO BID 10/04/22 12/26/22 History fluticasone fur. 200 mcg-umeclid 1 inh inhalation QAM 10/04/22 12/26/22 History 62.5 mcg-vilant 25 mcg inhalat.powder (Trelegy Ellipta) furosemide 20 mg tablet 20 mg PO QAM 10/04/22 12/26/22 History ibuprofen 600 mg tablet 600 mg PO TID 10/04/22 12/26/22 History ivabradine 5 mg tablet (Corlanor) 5 mg PO BID 10/04/22 12/26/22 History metoprolol succinate 25 mg 25 mg PO HS 10/04/22 12/26/22 History tablet,extended release 24 hr omeprazole 40 mg capsule,delayed 40 mg PO BID 10/04/22 12/26/22 History release aspirin 81 mg tablet,delayed 81 mg PO BID 6 weeks #0 tabs 11/20/22 12/26/22 Rx release methylprednisolone 4 mg tablets in 4 mg PO UD #21 ea 12/25/22 12/26/22 Rx a dose pack (Medrol (Sharath)) Patient History Medical History (Updated 12/26/22 @ 16:47 by Ramy Mason MD) Anxiety "Severe" Asthma Follows with pulm CAD (coronary artery disease) Mild per 2018 cath per cardio records ([facility])) Cataract bilat. Cervical disc herniation Cervical radiculopathy Congenital stenosis of cervical spine Worst at C5-6 COPD (chronic obstructive pulmonary disease) Follows with pulm Depression Emphysema lung O2 at 3L continuous Follows Dr. Kinsey ([place]) GERD (gastroesophageal reflux disease) Well controlled and controlled History of pericarditis Occurred around 2012- etiology unknown - treated with mediations- no issues since History of tachycardia Likely related to COPD and hypoxia per cardio records Well controlled with medication Hypertension Migraines History Surgical History (Updated 12/26/22 @ 16:00 by Yordan Gonzales MD) History of cardiac cath ~[facility] years ago, [facility] [place], no stents>no finding; f/u dr [facility] History of esophagogastroduodenoscopy (EGD) History of radiofrequency ablation (RFA) of nerve of cervical spine Hx of colonoscopy Hx of external ear surgery reattachment of lt earlobe Hx of hand surgery lt ring finger, reconstruction Hx of myringotomy bilat w/tubes Hx of shoulder surgery rt. S/P epidural steroid injection neck and back Status post carpal tunnel release of both wrists Family History Mother Heart disease Hypertension Grandmother (Paternal) Diabetes Grandfather (Paternal) Heart disease Grandfather (Maternal) Lung disease Social History Smoking Status: Current every day smoker Tobacco Type: Cigarettes Second Hand Exposure: Yes ( smokes); Hx Alcohol Use: No (hx-not in quite some time) Hx Substance Use: No Preferred Language: Chinese Communication Ability: Effective Visual Impairment: No Limitations Hearing Ability: Normal Senior Cytotechnologist Required: No Beliefs That Will Affect Care: None marital status: Current Living Situation: Spouse current occupational status: unemployed Feels Safe at Home: Yes Assistive Devices: Cane, Glasses and Oxygen - Continuous Review of Systems Review of Systems: All systems reviewed & are unremarkable except as noted in HPI & below Physical Exam Physical Exam: General: A&Ox3. NAD. Cooperative. HEENT: Atraumatic, normocephalic. Vision/hearing intact Pulm: CTAB A&P. -wheezes, -rales, -rhonchi. Symmetrical chest rise. No increased work of breathing. No respiratory distress. Cardiac: RRR, -mrg. Radial pulses intact and symmetrical. Abdominal: Nontender, nondistended, soft. BS present. Extremities: Left hip surgical dressing in place, drain is in place draining serosanguineous material. PT pulse intact bilaterally. Ankle dorsiflexion/plantarflexion and toe wiggle intact bilaterally. Sensation of soft touch intact in feet bilaterally without asymmetry. Moving upper extremities equally without deficit. Results & Data Results & Data Vital Signs (Past 12 Hours) Vital Signs Temp Pulse Pulse Pulse Pulse Resp BP 12/26/22 16:05 36.7 C 94 H 18 12/26/22 15:55 94 H 16 12/26/22 15:45 36.8 C 99 H 19 12/26/22 15:35 102 H 17 12/26/22 15:25 111 H 20 12/26/22 15:15 119 H 17 12/26/22 15:07 37.0 C 120 H 20 12/26/22 12:18 37.6 C H 89 18 136/69 12/26/22 10:00 99 H 18 12/26/22 09:22 94 H 12/26/22 09:09 38.3 C H 94 H 20 151/70 H BP Pulse Ox O2 Del Method O2 Flow Rate 12/26/22 16:05 102/60 96 Nasal Cannula 3 12/26/22 15:55 113/56 L 95 Nasal Cannula 3 12/26/22 15:45 105/56 L 94 Nasal Cannula 3 12/26/22 15:35 99/57 L 96 Nasal Cannula 3 12/26/22 15:25 109/59 L 99 Oxymask 5 12/26/22 15:15 108/64 99 Oxymask 9 12/26/22 15:07 117/83 99 Oxymask 9 12/26/22 12:18 97 Nasal Cannula 2 12/26/22 10:00 132/58 L 97 Nasal Cannula 2 12/26/22 09:22 12/26/22 09:09 96 Nasal Cannula 3 PG Care Time/CCT Total # of Minutes Spent Total Time Spent with Patient: Total time spent is greater than 50% in coordination of care (as documented) at patient's floor/unit and/or counseling patient: Coding Level of Care Code 90521 IN/OBS CONSULT LVL 4,60M Diagnoses Abscess of left hip L02.416 Emphysema lung J43.9 COPD (chronic obstructive pulmonary disease) J44.9 CAD (coronary artery disease) I25.10 GERD (gastroesophageal reflux disease) K21.9 Anxiety F41.9 Hypertension I10
[2022-12-26] MEDS: KETOROLAC 30 MG/ML VIAL IV SCH ×2 (17:59→23:25)
[2022-12-26] MEDS: VANCOMYCIN HCL 1,500 MG in SODIUM CHLORIDE 0.9% 500 ML IV SCH (18:21)
[2022-12-26] MEDS: oxyCODONE HCL IR 5 MG TAB (IMMEDIATE RELEASE) PO PRN (19:19)
[2022-12-26] MEDS: ALBUTEROL 0.083% NEBU SOLN 3 ML VIAL INH SCH (19:36)
[2022-12-26] MEDS: ASPIRIN 81 MG ECTAB PO SCH (20:42)
[2022-12-26] MEDS: BENZONATATE 100 MG CAPSULE PO SCH (20:42)
[2022-12-26] MEDS: BACLOFEN 10 MG TAB PO SCH (20:42)
[2022-12-26] MEDS: FAMOTIDINE 20 MG TAB PO SCH (20:43)
[2022-12-26] MEDS: DOCUSATE SODIUM 100 MG CAP PO SCH (20:43)
[2022-12-26] MEDS: MONTELUKAST SODIUM 10 MG TABLET PO SCH (20:44)
[2022-12-26] MEDS: GABAPENTIN 600 MG TAB PO SCH (20:44)
[2022-12-26] MEDS: PANTOprazole 40 MG TAB PO SCH (20:44)
[2022-12-26] MEDS: ROFLUMILAST 500 MCG TAB PO SCH (20:45)
[2022-12-26] MEDS: SENNA 8.6 MG TAB PO SCH (20:45)
[2022-12-26] MEDS: traZODone HCL 100 MG TAB PO SCH (20:46)
[2022-12-26] MEDS: METOPROLOL SUCC 25MG EXT REL TAB PO SCH (20:48)
[2022-12-27] MEDS: SODIUM CHLORIDE 0.9% 1000ML 1,000 ML IV SCH (03:26)
[2022-12-27 03:42] LABS: A calco-baum cmplx NotReported Not Detected (NotDetected); Bact fragilis Not Reported Not Detected (NotDetected); C auris Not Reported Not Detected (NotDetected); Calbicans Not Reported Not Detected (NotDetected); Candida glabrata Not Reported Not Detected (NotDetected); Candida krusei Not Reported Not Detected (NotDetected); Cneoformans/gatti Not Reported Not Detected (NotDetected); Cparapsilosis Not Reported Not Detected (NotDetected); Ctropicalis Not Reported Not Detected (NotDetected); E cloacae compx Not Reported Not Detected (NotDetected); Efaecalis Not Reported Not Detected (NotDetected); Efaecium Not Reported Not Detected (NotDetected); Enterobacterales Not Reported Not Detected (NotDetected); Escherichia coli Not Reported Not Detected (NotDetected); H influenzae Not Reported Not Detected (NotDetected); K aerogenes Not Reported Not Detected (NotDetected); Koxytoca Not Reported Not Detected (NotDetected); Kpneumoniae grp Not Reported Not Detected (NotDetected); Lmonocyt Not Reported Not Detected (NotDetected); N meningitidis Not Reported Not Detected (NotDetected); P aeruginosa Not Reported Not Detected (NotDetected); Proteus spp Not Reported Not Detected (NotDetected); Salmonella spp Not Reported Not Detected (NotDetected); Smarcescens Not Reported Not Detected (NotDetected); Staph lugdunensis Not Reported Not Detected (NotDetected); Staph spp. Not Reported Not Detected (NotDetected); Staphaureus Not Reported Not Detected (NotDetected); Staphepi Not Reported Not Detected (NotDetected); Stenmaltophilia Not Reported Not Detected (NotDetected); Strep agal(GrpB) Not Reported Not Detected (NotDetected); Strep pneum Not Reported Not Detected (NotDetected); Strep pyog (GrpA) Not Reported DETECTED (NotDetected); Strep spp Not Reported DETECTED (NotDetected); Streptococcus spp DETECTED (NotDetected)
[2022-12-27 03:47] LABS: Streptococcus pyogenes (GrpA) DETECTED (NotDetected)
[2022-12-27] MEDS: KETOROLAC 30 MG/ML VIAL IV SCH ×4 (04:44→23:04)
[2022-12-27] MEDS: VANCOMYCIN HCL 1,500 MG in SODIUM CHLORIDE 0.9% 500 ML IV SCH ×2 (06:10→21:44)
[2022-12-27] MEDS: ALBUTEROL 0.083% NEBU SOLN 3 ML VIAL INH SCH (07:13)
[2022-12-27] MEDS: ATORVASTATIN 20 MG TAB PO SCH (07:39)
[2022-12-27] MEDS: DULoxetine HCL 60 MG CAP PO SCH (07:39)
[2022-12-27] MEDS: lisinopril 10 MG TAB PO SCH (07:39)
[2022-12-27] MEDS: FUROSEMIDE 20 MG TAB PO SCH (07:39)
[2022-12-27] MEDS: dilTIAZem HCL 180 MG CAPCR PO SCH (07:39)
[2022-12-27] MEDS: DULoxetine HCL 30 MG CAP PO SCH (07:40)
[2022-12-27] MEDS: MULTIVITAMIN TAB PO SCH (07:40)
[2022-12-27] MEDS: FAMOTIDINE 20 MG TAB PO SCH ×2 (07:40→20:58)
[2022-12-27] MEDS: PANTOprazole 40 MG TAB PO SCH ×2 (07:40→20:58)
[2022-12-27] MEDS: BACLOFEN 10 MG TAB PO SCH ×3 (07:41→20:57)
[2022-12-27] MEDS: BENZONATATE 100 MG CAPSULE PO SCH ×2 (07:41→20:58)
[2022-12-27] MEDS: DOCUSATE SODIUM 100 MG CAP PO SCH ×2 (07:41→20:58)
[2022-12-27] MEDS: UMECLIDINIUM/VILANTEROL 62.5/25MCG 7 PUFFS/INHALER INH SCH (07:42)
[2022-12-27] MEDS: GABAPENTIN 600 MG TAB PO SCH ×3 (07:42→21:00)
[2022-12-27] MEDS: ASPIRIN 81 MG ECTAB PO SCH ×2 (07:42→20:58)
[2022-12-27] MEDS: oxyCODONE HCL IR 5 MG TAB (IMMEDIATE RELEASE) PO PRN ×3 (07:50→21:52)
[2022-12-27] MEDS: FLUTICASONE FUROATE 200MCG 14 PUFFS/INHALER INH SCH (07:56)
[2022-12-27 08:40] LABS: Basophils # (auto) 0.03 K/uL (0-0.2); Basophils % (auto) 0.2 %; Hemoglobin 9.2 g/dl (14.0-18.0); Immature Granulocytes # (auto) 0.15 K/uL (0.01-0.20); Immature Granulocytes % (auto) 0.9 %; Lymphocytes # (auto) 2.28 K/uL (1.2-3.4); Lymphocytes % (auto) 13.2 %; Mean Corpuscular Hemoglobin 29.7 pg (25.0-34.0); Mean Corpuscular Hgb Conc 32.9 g/dL (32.0-36.0); Mean Corpuscular Volume 90.3 fL (80.0-100.0); Mean Platelet Volume 9.8 fL (9.4-12.4); Monocytes # (auto) 1.16 K/uL (0.11-0.59); Monocytes % (auto) 6.7 %; Neutrophils # (auto) 13.67 K/uL (1.40-6.50); Platelet Count 247 K/uL (130-400); RDW Coefficient of Variation 12.7 % (11.5-14.5); RDW Standard Deviation 41.9 fL (36.4-46.3); White Blood Count 17.29 K/ul (4.8-10.8)
[2022-12-27] MEDS ORDERED: NON-FORMULARY MEDICATION (Fluticasone-Umeclidin-Vilanter [Trelegy Ellipta] 200-62.5-25 mcg INH SCH (09:00)
[2022-12-27 09:52] LABS: Calcium 8.6 mg/dl (8.6-10.3); Creatinine Clr Calc Pharmacy 114.6 ml/min; Est GFR (African American) 108.4 ml/min; Est GFR (Non-African American) 93.5 ml/min; Potassium 3.6 mmol/L (3.5-5.1)
--- NOTE | 2022-12-27 10:29 | Orthopedic Progress Note ---
Date of Service December 27, 2022 Assessment & Plan (1) Prosthetic hip infection: Overall is doing fairly well. Is not having much pain in the left hip. He is on IV vancomycin. Blood cultures grew out gram-positive cocci and his initial hip Gram stain also grew out gram-positive cocci. The hospitalist is already seen him. We will get an infectious disease consultation and start him up on rifampin as well. I plan to remove the drain tomorrow. Betzaida Fu was seen and examined at bedside this morning. Overall is doing fairly well. His hip pain is much better than it was yesterday. He is receiving the IV vancomycin. He was seen by the hospitalist. He has been walking some on his hip. He has no new complaints.. Review of Systems All systems reviewed & are unremarkable except as noted in HPI & below. Physical Exam On physical examination of the left hip, the dressing is clean and dry. He is neurovascular intact.. Results & Data Results & Data Laboratory Results . Diagnostic Findings . PG Care Time/CCT Total # of Minutes Spent Total Time Spent with Patient: Total time spent is greater than 50% in coordination of care (as documented) at patient's floor/unit and/or counseling patient: Coding Level of Care Code 64823 Post Operative Follow-Up Diagnoses Prosthetic hip infection T84.59XA; Z96.649
--- NOTE | 2022-12-27 11:31 | Pharmacy Report ---
Pharmacy PK ABX Note - Date of Service December 27, 2022 - Assessment and Plan Assessment 52 year old M receiving VANCOMYCIN for treatment of LEFT PERIPROSTECTIC HIP INFECTION. Pertinent microbiologic data includes: HIP CULTURE culture growing GROUP A BETA STREP (SENSITIVITIES PENDING), BLOOD culture growing GRAM POSITIVE COCCI IN CHAINS X1 (INDENTIFICAITON AND SENSITIVITIES PENDING). Day # 2/? of antimicrobial therapy. Plan Vancomycin * Loading dose: 2500 mg IV x 1 * Maintenance dose: 1500 mg IV every 12 hours * Regimen is predicted to achieve target AUC/TUAN of 400-600 mg/L.hr * Random level ordered for: 12/28/22 WITH AM LABS Pharmacy will continue to follow and will adjust dose/frequency as necessary. Thank you. Pharmacy has transitioned to AUC monitoring for vancomycin. AUC/TUAN is the preferred PK/PD target and is associated with decreased risk of nephrotoxicity compared to traditional trough targets.
--- NOTE | 2022-12-27 13:03 | Hospitalist Progress Note ---
Date of Service December 27, 2022 Assessment & Plan (1) Abscess of left hip: Plan: Status post left hip arthroplasty on November 19 of this year. Streptococcus isolated. Blood cultures positive on December 26. Currently on intravenous vancomycin. Postoperative day #1 after incision and drainage and exchange of ceramic head and liner. Appreciate orthopedic management. (2) Emphysema lung: Plan: Known, with associated chronic respiratory failure usually requiring 2 L of oxygen per nasal cannula. Currently stable. Continue Anoro, Daliresp, Singulair. PFTs consistent with COPD (3) COPD (chronic obstructive pulmonary disease): Plan: Currently stable. Continue current medical management (4) CAD (coronary artery disease): Plan: Stable. Continue current medical management (5) GERD (gastroesophageal reflux disease): Plan: Stable. Takes Pepcid at home. Protonix while hospitalized (6) Anxiety: Plan: Stable. Continue Duloxetine (7) Hypertension: Plan: Stable. Continue diltiazem, metoprolol, lisinopril, Lasix (8) Streptococcal bacteremia: Plan: Currently on intravenous vancomycin, day 2. Will repeat blood cultures every 2 days until negative. Infectious disease consultation requested. (9) Acute blood loss anemia: Plan: Hemoglobin is down to 9.2. This could partially be dilutional. Serial labs ordered. We will follow Plan Anticipate eventual discharge to home, possibly on continued IV antibiotic therapy Admission and Anticipated Discharge Date Admission Date: December 27, 2022 Subjective Alert and oriented. No acute distress. Strep isolated in blood culture from December 26. Currently on intravenous vancomycin. We will repeat blood culture and consult infectious disease. Postoperative day #1 after incision and drainage and liner exchange. White blood cell count is trending down Review of Systems Review of Systems: Constitutional-no fever or chills ENT-no blurred vision, no double vision, no epistaxis, no sore throat Respiratory-no cough, no wheezing, no shortness of breath Cardiac-no palpitations, no chest pain, no syncope GI-no nausea, vomiting, diarrhea, melena, hematochezia -no urinary retention, no urinary incontinence, no dysuria, no hematuria Musculoskeletal-left hip discomfort with weightbearing as expected Skin-no bruising, no rashes, no pruritus Neuro-no isolated weakness, no paresthesia, no weakness Psych-no depression, no anxiety Physical Exam Physical Exam: General-alert and oriented x3, no fevers, no chills HEENT-head atraumatic and normocephalic, pupils equal and reactive to light, extraocular muscles intact Neck-no lymphadenopathy or thyromegaly, trachea midline Chest-clear to auscultation percussion. No rales wheezing or rhonchi Cardiac-regular rate and rhythm, normal S1 and S2 Abdomen-normal bowel sounds, nontender, no hepatosplenomegaly Extremities-left hip drain in place. Incision site unremarkable. Neuro-cranial nerves II through XII intact, motor and sensory function within normal limits, strength symmetrical , no focal deficits Psych-normal affect, normal mood Results & Data Results & Data Vital Signs (Past 12 Hours) Vital Signs Temp Pulse Pulse Pulse Resp BP BP 12/27/22 07:25 12/27/22 12:03 37.4 C 99 H 20 121/74 12/27/22 07:47 36.5 C 88 18 135/73 12/27/22 07:37 36.5 C 88 18 135/73 12/27/22 07:15 91 H 18 12/27/22 03:15 36.7 C 80 16 99/59 L Pulse Ox O2 Del Method O2 Flow Rate 12/27/22 07:25 Nasal Cannula 2 12/27/22 12:03 97 Nasal Cannula 2 12/27/22 07:47 Nasal Cannula 3 12/27/22 07:37 98 Nasal Cannula 2 12/27/22 07:15 99 Nasal Cannula 3 12/27/22 03:15 96 Nasal Cannula 3 Laboratory Results 12/27/22 08:01 12/27/22 08:01 PG Care Time/CCT Total # of Minutes Spent Total Time Spent with Patient: Total time spent is greater than 50% in coordination of care (as documented) at patient's floor/unit and/or counseling patient: Coding Level of Care Code 90000 SUB INP/OBS CARE 3/50MIN Diagnoses Abscess of left hip L02.416 Emphysema lung J43.9 COPD (chronic obstructive pulmonary disease) J44.9 CAD (coronary artery disease) I25.10 GERD (gastroesophageal reflux disease) K21.9 Anxiety F41.9 Hypertension I10 Streptococcal bacteremia R78.81; B95.5 Acute blood loss anemia D62
[2022-12-27] MEDS: ALBUTEROL 0.5% NEB SOLN 2.5 MG/0.5 ML VIAL INH SCH (19:56)
[2022-12-27] MEDS: HYDROmorphone INJ 0.5 MG/0.5 ML SYR IV PRN (20:49)
[2022-12-27] MEDS: IVABRADINE 5 MG EXT SCH (20:53)
[2022-12-27] MEDS: MONTELUKAST SODIUM 10 MG TABLET PO SCH (20:59)
[2022-12-27] MEDS: ROFLUMILAST 500 MCG TAB PO SCH (20:59)
[2022-12-27] MEDS: SENNA 8.6 MG TAB PO SCH (20:59)
[2022-12-27] MEDS: traZODone HCL 100 MG TAB PO SCH (20:59)
[2022-12-27] MEDS: METOPROLOL SUCC 25MG EXT REL TAB PO SCH (20:59)
[2022-12-27] MEDS: rifAMPin 300 MG CAPSULE PO SCH (21:52)
[2022-12-28] MEDS: oxyCODONE HCL IR 5 MG TAB (IMMEDIATE RELEASE) PO PRN ×5 (03:38→21:23)
[2022-12-28] MEDS ORDERED: VANCOMYCIN LEVEL ONE (04:00)
[2022-12-28] MEDS: KETOROLAC 30 MG/ML VIAL IV SCH ×2 (05:30→10:51)
--- NOTE | 2022-12-28 06:17 | Orthopedic Progress Note ---
Date of Service December 28, 2022 Assessment & Plan (1) Prosthetic hip infection: His cultures are growing out group A beta strep. He is currently on vancomycin and and rifampin. He is on aspirin for DVT prophylaxis. His initial blood cultures were positive and repeat blood cultures have been negative to date. He will be seen by infectious disease in the next day or 2. He will likely require a PICC line and IV antibiotics. He can be weightbearing as tolerated on his left hip. We are still waiting for final cultures and recommendations from infectious disease. Betzaida Fu was seen and examined at bedside this morning. He is having some pain in his left hip. He has been transferred to [facility]. He is having a little bit more pain than it was yesterday. He has no other complaints.. Review of Systems All systems reviewed & are unremarkable except as noted in HPI & below. Physical Exam On physical examination of left hip, the dressing is clean and dry. His leg is out full extension. He has active dorsiflexion plantarflexion of his left ankle.. Results & Data Results & Data Laboratory Results . Diagnostic Findings . PG Care Time/CCT Total # of Minutes Spent Total Time Spent with Patient: Total time spent is greater than 50% in coordination of care (as documented) at patient's floor/unit and/or counseling patient: Coding Level of Care Code 46624 Post Operative Follow-Up Diagnoses Prosthetic hip infection T84.59XA; Z96.649
[2022-12-28] MEDS: ALBUTEROL 0.5% NEB SOLN 2.5 MG/0.5 ML VIAL INH SCH ×2 (07:01→19:15)
[2022-12-28 07:20] LABS: Basophils # (auto) 0.06 K/uL (0-0.2); Basophils % (auto) 0.5 %; Eosinophils # (auto) 0.15 K/uL (0-0.50); Eosinophils % (auto) 1.2 %; Hemoglobin 9.3 g/dl (14.0-18.0); Immature Granulocytes # (auto) 0.08 K/uL (0.01-0.20); Immature Granulocytes % (auto) 0.6 %; Lymphocytes # (auto) 2.84 K/uL (1.2-3.4); Lymphocytes % (auto) 22.2 %; Mean Corpuscular Hemoglobin 29.8 pg (25.0-34.0); Mean Corpuscular Hgb Conc 33.2 g/dL (32.0-36.0); Mean Corpuscular Volume 89.7 fL (80.0-100.0); Mean Platelet Volume 9.8 fL (9.4-12.4); Monocytes # (auto) 1.01 K/uL (0.11-0.59); Monocytes % (auto) 7.9 %; Neutrophils # (auto) 8.67 K/uL (1.40-6.50); Neutrophils % (auto) 67.6 %; Platelet Count 280 K/uL (130-400); RDW Coefficient of Variation 12.6 % (11.5-14.5); RDW Standard Deviation 41.7 fL (36.4-46.3); Red Blood Count 3.12 M/uL (4.70-6.10); White Blood Count 12.81 K/ul (4.8-10.8)
[2022-12-28] MEDS: IVABRADINE 5 MG EXT SCH ×2 (07:33→17:30)
[2022-12-28 07:48] LABS: Calcium 8.6 mg/dl (8.6-10.3); Creatinine Clr Calc Pharmacy 125.3 ml/min; Est GFR (African American) 116.4 ml/min; Est GFR (Non-African American) 100.4 ml/min; Potassium 3.6 mmol/L (3.5-5.1)
--- NOTE | 2022-12-28 08:09 | Pharmacy Report ---
Pharmacy PK ABX Note - Date of Service December 28, 2022 - Assessment and Plan Assessment 52 year old M receiving VANCOMYCIN for treatment of LEFT PERIPROSTECTIC HIP INFECTION. Pertinent microbiologic data includes: HIP CULTURE culture growing GROUP A BETA STREP (SENSITIVITIES PENDING), BLOOD culture growing GRAM POSITIVE COCCI IN CHAINS X1 (IDENTIFICATION AND SENSITIVITIES PENDING- per [facility] this is strep pyogenes). Day # 2/? of antimicrobial therapy. Plan Vancomycin * vancomycin trough today was 14.3 mcg/mL * INCREASE Maintenance dose: 1750 mg IV every 12 hours * Regimen is predicted to achieve target AUC/TUAN of 400-600 mg/L.hr * Random level ordered will be ordered based upon duration Pharmacy will continue to follow and will adjust dose/frequency as necessary. Thank you. Pharmacy has transitioned to AUC monitoring for vancomycin. AUC/TUAN is the preferred PK/PD target and is associated with decreased risk of nephrotoxicity compared to traditional trough targets.
[2022-12-28] MEDS: lisinopril 10 MG TAB PO SCH (08:27)
[2022-12-28] MEDS: ASPIRIN 81 MG ECTAB PO SCH ×2 (08:27→21:24)
[2022-12-28] MEDS: FUROSEMIDE 20 MG TAB PO SCH (08:27)
[2022-12-28] MEDS: DOCUSATE SODIUM 100 MG CAP PO SCH ×2 (08:27→21:35)
[2022-12-28] MEDS: BACLOFEN 10 MG TAB PO SCH ×3 (08:28→21:35)
[2022-12-28] MEDS: FAMOTIDINE 20 MG TAB PO SCH ×2 (08:28→21:25)
[2022-12-28] MEDS: PANTOprazole 40 MG TAB PO SCH ×2 (08:28→21:24)
[2022-12-28] MEDS: DULoxetine HCL 60 MG CAP PO SCH (08:29)
[2022-12-28] MEDS: ATORVASTATIN 20 MG TAB PO SCH (08:29)
[2022-12-28] MEDS: DULoxetine HCL 30 MG CAP PO SCH (08:29)
[2022-12-28] MEDS: dilTIAZem HCL 180 MG CAPCR PO SCH (08:30)
[2022-12-28] MEDS: MULTIVITAMIN TAB PO SCH (08:30)
[2022-12-28] MEDS: GABAPENTIN 600 MG TAB PO SCH ×3 (08:31→21:25)
[2022-12-28] MEDS: BENZONATATE 100 MG CAPSULE PO SCH ×2 (08:31→21:35)
[2022-12-28] MEDS: UMECLIDINIUM/VILANTEROL 62.5/25MCG 7 PUFFS/INHALER INH SCH (08:32)
[2022-12-28] MEDS: FLUTICASONE FUROATE 200MCG 14 PUFFS/INHALER INH SCH (08:32)
[2022-12-28] MEDS: HYDROmorphone INJ 0.5 MG/0.5 ML SYR IV PRN ×2 (08:37→19:33)
[2022-12-28] MEDS: VANCOMYCIN HCL 1,500 MG in SODIUM CHLORIDE 0.9% 500 ML IV SCH (08:51)
[2022-12-28] MEDS ORDERED: VANCOMYCIN HCL 1,750 MG in SODIUM CHLORIDE 0.9% 500 ML IV SCH (09:00)
[2022-12-28] MEDS: rifAMPin 300 MG CAPSULE PO SCH (09:06)
--- NOTE | 2022-12-28 13:30 | Infectious Disease Consult ---
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 Infectious diseases consulted for prosthetic joint infection. Patient underwent left anterior PHYLLIS on 11/19/22 without issue. Incision site healed well and there appeared to be no complications. However he noted a redness over hip.Cellulitis started 12/25 started on methylprednisolone by Orthopaedics, redness and pain worsened patient came to ED on 12/26. No injury to hip, no animal bites, no drainage. In the ED, hew as afebrile, but WBC 20,000. ESR 46, normal lactate. Left hip CT demonstrated Intramuscular collection likely in the tensor fascia dell concerning for intramuscular abscess. Left knee negative for gas, osteomyelitis, fracture or dislocation, no large joint effusion. He received Vancomycin, Cefepime. 12/26 blood cultures growing Strep pyogenes bottles, repeat 12/27 blood cultures no growth to date. On 12/26 he underwent L anterior hip I+D with ceramic head and polyethylene line exchange. OR cultures grew Group A beta hemolytic strep, Since then he has been afebrile, he remains on current level home oxygen, 2L. WBC has improved. On my interview today, he is feeling well. We reviewed his PMH, PSH. He is not allergic to antibiotics. Discussion: Patient with PJI and bacteremia secondary to strep cellulitis s/p polyexchange. He will need 6 weeks of IV abx followed by oral suppressive therapy for at least one year. I will ask micro to add MICs to strep. We can narrow to Ceftriaxone, if his cultures from blood are negative times 48 hours (/ cx P) then can place PICC line. He does need rifampin in this case as this is not staph aureus (2) Cellulitis: (3) Status post hip surgery: (4) Prosthetic hip infection: Plan Recommend -DC Vancomycin, Cefepime -Start Ceftriaxone 2G IV Daily -DC rifampin, not recommended for strep infection (used for staph) and not give during active bacteremia -12/27 blood cultures are P, if these are negative at 48 hours, can place PICC line -Anticipate 6 weeks therapy from exchange with IV ceftriaxone through 02/06/23 with weekly CBC with diff, CMP -This should then be followed by oral suppressive therapy for at least one year either Penicillin VK or Amoxicillin pending sensitivities of strep Thank you For this consult, ID will follow Janet Zeng MD Infectious Diseases Consultation Information Consultation was provided via telemedicine using two-way real-time interactive telecommunication between the patient and the telemedicine provider. For the duration of the visit, the provider was performing the assessment from a different facility than the patient. This includesuse of bluetooth stethoscope forauscultationperformed by the telepresenter that the telemedicine provider can hear if described in the physical exam. Right Of Way Buyer contact information: Please call [facility] [phone]. (Phone Number For Physician Use Only) After establishing a telemedicine visit, patient was: Patient was verified with two unique identifiers, Patient/authorized rep acknowledged consent and understanding and Gave permission to continue telehealth session Time Spent with Patient: Initial => 55 min History of Present Illness Reason for Consultation: L hip PJI Requesting Physician: Nayan Burgos DO Attending Physician: Nayan Burgos DO History of Present Illness 52-year-old male titanium plate in left hand (4th digit), vertebral arthritis, on home oxygen 2Liters at rest, left anterior PHYLLIS on 11/19/22 admitted on 12/26 with overlying cellulitis of left hip. Infectious diseases consulted for prosthetic joint infection. Patient underwent left anterior PHYLLIS on 11/19/22 without issue. Incision site healed well and there appeared to be no complications. However he noted a redness over hip.Cellulitis started 12/25 started on methylprednisolone by Orthopaedics, redness and pain worsened patient came to ED on 12/26. No injury to hip, no animal bites, no drainage. In the ED, hew as afebrile, but WBC 20,000. ESR 46, normal lactate. Left hip CT demonstrated Intramuscular collection likely in the tensor fascia dell concerning for intramuscular abscess. Left knee negative for gas, osteomyelitis, fracture or dislocation, no large joint effusion. He received Vancomycin, Cefepime. 12/26 blood cultures growing Strep pyogenes bottles, repeat 12/27 blood cultures no growth to date. On 12/26 he underwent L anterior hip I+D with ceramic head and polyethylene line exchange. OR cultures grew Group A beta hemolytic strep, Since then he has been afebrile, he remains on current level home oxygen, 2L. WBC has improved. On my interview today, he is feeling well. We reviewed his PMH, PSH. He is not allergic to antibiotics. Allergies Allergy/AdvReac Type Severity Reaction Status Date / Time prednisone Allergy rash Verified 12/26/22 11:25 Home Medications Medication Instructions Recorded Confirmed Type Oxygen Home #1 ea 11/23/19 08/18/22 History albuterol sulfate 0.63 mg/3 mL 0.63 mg inhalation BID 11/23/19 12/26/22 History solution for nebulization albuterol sulfate 90 mcg/actuation 2 puffs inhalation Q4H PRN 11/23/19 12/26/22 History aerosol inhaler Shortness Of Breath benzonatate 100 mg capsule 100 mg PO BID 11/23/19 12/26/22 History montelukast 10 mg tablet 10 mg PO HS 11/23/19 12/26/22 History (Singulair) roflumilast 500 mcg tablet 500 mcg PO HS 11/23/19 12/26/22 History (Daliresp) trazodone 50 mg tablet 100 mg PO HS 11/23/19 12/26/22 History duloxetine 30 mg capsule,delayed 30 mg PO QAM 05/15/20 12/26/22 History release (Cymbalta) methylprednisolone 8 mg tablet 8 mg PO BID PRN breathing flare up 05/15/20 12/26/22 History lisinopril 10 mg tablet (Prinivil) 10 mg PO QAM 06/20/20 12/26/22 History gabapentin 600 mg tablet 600 mg PO TID #270 tabs 12/31/21 12/26/22 Rx baclofen 10 mg tablet 10 mg PO TID 08/18/22 12/26/22 History celecoxib 200 mg capsule 200 mg PO BID 08/18/22 12/26/22 History oxycodone-acetaminophen 10 mg-325 1 tab PO UD PRN Pain 08/18/22 12/26/22 History mg tablet (Percocet) atorvastatin 20 mg tablet 20 mg PO QAM 10/04/22 12/26/22 History diclofenac sodium 1 % topical gel 2 g topical QID PRN Pain 10/04/22 12/26/22 History diltiazem HCl 360 mg capsule,24 360 mg PO QAM 10/04/22 12/26/22 History hr,extended release (Tiadylt ER) docusate sodium 100 mg tablet 100 mg PO QID 10/04/22 11/19/22 History duloxetine 60 mg capsule,delayed 60 mg PO QAM 10/04/22 12/26/22 History release (Cymbalta) famotidine 20 mg tablet 20 mg PO BID 10/04/22 12/26/22 History fluticasone fur. 200 mcg-umeclid 1 inh inhalation QAM 10/04/22 12/26/22 History 62.5 mcg-vilant 25 mcg inhalat.powder (Trelegy Ellipta) furosemide 20 mg tablet 20 mg PO QAM 10/04/22 12/26/22 History ibuprofen 600 mg tablet 600 mg PO TID 10/04/22 12/26/22 History ivabradine 5 mg tablet (Corlanor) 5 mg PO BID 10/04/22 12/26/22 History metoprolol succinate 25 mg 25 mg PO HS 10/04/22 12/26/22 History tablet,extended release 24 hr omeprazole 40 mg capsule,delayed 40 mg PO BID 10/04/22 12/26/22 History release aspirin 81 mg tablet,delayed 81 mg PO BID 6 weeks #0 tabs 11/20/22 12/26/22 Rx release methylprednisolone 4 mg tablets in 4 mg PO UD #21 ea 12/25/22 12/26/22 Rx a dose pack (Medrol (Sharath)) Patient History Medical History Anxiety "Severe" Asthma Follows with pulm CAD (coronary artery disease) Mild per 2018 cath per cardio records ([facility])) Cataract bilat. Cervical disc herniation Cervical radiculopathy Congenital stenosis of cervical spine Worst at C5-6 COPD (chronic obstructive pulmonary disease) Follows with pulm Depression Emphysema lung O2 at 3L continuous Follows Dr. Kinsey ([place]) GERD (gastroesophageal reflux disease) Well controlled and controlled History of pericarditis Occurred around 2012- etiology unknown - treated with mediations- no issues since History of tachycardia Likely related to COPD and hypoxia per cardio records Well controlled with medication Hypertension Migraines History Surgical History (Updated 12/26/22 @ 16:00 by Yordan Gonzales MD) History of cardiac cath ~5 years ago, LISA power, no stents>no finding; f/u dr mayo [facility] cardiology History of esophagogastroduodenoscopy (EGD) History of radiofrequency ablation (RFA) of nerve of cervical spine Hx of colonoscopy Hx of external ear surgery reattachment of lt earlobe Hx of hand surgery lt ring finger, reconstruction Hx of myringotomy bilat w/tubes Hx of shoulder surgery rt. S/P epidural steroid injection neck and back Status post carpal tunnel release of both wrists Family History Mother Heart disease Hypertension Grandmother (Paternal) Diabetes Grandfather (Paternal) Heart disease Grandfather (Maternal) Lung disease Social History Smoking Status: Current every day smoker Tobacco Type: Cigarettes Second Hand Exposure: Yes; Do You Dip or Chew Tobacco: Yes; Hx Alcohol Use: Yes Alcohol type: hard liquor Hx Substance Use: No Preferred Language: Danish Communication Ability: Effective Visual Impairment: No Limitations Hearing Ability: Normal [employer] Required: No Beliefs That Will Affect Care: None marital status: Current Living Situation: Spouse current occupational status: unemployed Feels Safe at Home: Yes Safety Concerns: Feels Safe At This Time Assistive Devices: Cane, Oxygen - Continuous and Walker Physical Exam Physical Exam: NAD PIVS only No rash L hip with erythema drain in place with serosanguinous bloody fluid Results & Data Vital Signs (Past 12 Hours) Vital Signs Temp Pulse Pulse Resp BP Pulse Ox O2 Del Method 12/28/22 11:18 36.9 C 86 20 128/65 93 Nasal Cannula 12/28/22 07:00 77 12/28/22 09:19 Nasal Cannula 12/28/22 07:45 37.8 C H 83 20 136/76 96 Nasal Cannula 12/28/22 07:02 82 16 95 Room Air 12/28/22 03:41 37.1 C 77 18 121/70 93 Nasal Cannula O2 Flow Rate 12/28/22 11:18 2 12/28/22 07:00 12/28/22 09:19 2 12/28/22 07:45 2 12/28/22 07:02 12/28/22 03:41 3 Laboratory Results Laboratory Results - last 48 hr 12/26/22 12/27/22 12/27/22 09:33 08:01 08:01 WBC 17.29 H RBC 3.10 L Hgb 9.2 L Hct 28.0 L MCV 90.3 MCH 29.7 MCHC 32.9 RDW Std Deviation 41.9 RDW Coeff of Olivia 12.7 Plt Count 247 MPV 9.8 Immature Gran % (Auto) 0.9 Neut % (Auto) 79.0 Lymph % (Auto) 13.2 Evans % (Auto) 6.7 Eos % (Auto) 0.0 Baso % (Auto) 0.2 Neut # (Auto) 13.67 H Lymph # (Auto) 2.28 Evans # (Auto) 1.16 H Eos # (Auto) 0.00 Baso # (Auto) 0.03 Immature Gran # (Auto) 0.15 Sodium 137 Potassium 3.6 Chloride 103 Carbon Dioxide 26 Anion Gap 8 BUN 16 Creatinine 0.94 Est Cr Clr Drug Dosing 114.6 Est GFR ( Amer) 108.4 Est GFR (Non-Af Amer) 93.5 BUN/Creatinine Ratio 17.0 Glucose 117 H Calcium 8.6 Random Vancomycin Streptococcus sp PCR DETECTED A S. pyogenes (PCR) DETECTED A Bld Cult ID Panel PCR See PCR Comment 12/28/22 12/28/22 12/28/22 06:37 06:37 06:37 WBC 12.81 H RBC 3.12 L Hgb 9.3 L Hct 28.0 L MCV 89.7 MCH 29.8 MCHC 33.2 RDW Std Deviation 41.7 RDW Coeff of Olivia 12.6 Plt Count 280 MPV 9.8 Immature Gran % (Auto) 0.6 Neut % (Auto) 67.6 Lymph % (Auto) 22.2 Evans % (Auto) 7.9 Eos % (Auto) 1.2 Baso % (Auto) 0.5 Neut # (Auto) 8.67 H Lymph # (Auto) 2.84 Evans # (Auto) 1.01 H Eos # (Auto) 0.15 Baso # (Auto) 0.06 Immature Gran # (Auto) 0.08 Sodium 140 Potassium 3.6 Chloride 105 Carbon Dioxide 28 Anion Gap 7 BUN 12 Creatinine 0.86 Est Cr Clr Drug Dosing 125.3 Est GFR ( Amer) 116.4 Est GFR (Non-Af Amer) 100.4 BUN/Creatinine Ratio 14.0 Glucose 94 Calcium 8.6 Random Vancomycin 14.3 Streptococcus sp PCR S. pyogenes (PCR) Bld Cult ID Panel PCR Microbiology 12/27/22 11:00 Blood Aerobic Blood Culture - Preliminary No growth in Aerobic bottle after 24 hours. 12/27/22 11:00 Blood Anaerobic Blood Culture - Preliminary No growth in Anaerobic bottle after 24 hours. 12/27/22 11:10 Blood Aerobic Blood Culture - Preliminary No growth in Aerobic bottle after 24 hours. 12/27/22 11:10 Blood Anaerobic Blood Culture - Preliminary No growth in Anaerobic bottle after 24 hours. 12/26/22 09:33 Blood Aerobic Blood Culture - Preliminary No growth in Aerobic bottle after 48 hours. 12/26/22 09:33 Blood Anaerobic Blood Culture - Preliminary No growth in Anaerobic bottle after 48 hours. 12/26/22 09:33 Blood Aerobic Blood Culture - Preliminary No growth in Aerobic bottle after 48 hours. 12/26/22 09:33 Blood Anaerobic Blood Culture - Preliminary Group A Beta Strep 12/26/22 Unknown Hip,Left Gram Stain - Final 12/26/22 Unknown Hip,Left Aerobic and Anaerobic Culture - Preliminary Group A Beta Strep Diagnostic Findings Hip CT 12/26/22 09:01 CT hip LT w con CLINICAL HISTORY: poss abscess TECHNIQUE: Multidetector row helical CT of the left hip was performed without intravenous contrast. Coronal and sagittal reformations were obtained. Automated dose lowering techniques and/or adjustment according to patient size were utilized for this examination. CT DOSE: 384.59 mGy.cm Comparison: Comparison is made to left hip radiograph 11/19/2022 FINDINGS: The osseous structures are without fracture or dislocation. Patient is status post total hip arthroplasty. No joint effusion is seen. A fluid collection is seen in the anterolateral thigh musculature, likely the tensor fascia dell, measuring 11.3 x 2.1 x 2.1 cm. IMPRESSION: Intramuscular collection likely in the tensor fascia dell concerning for intramuscular abscess. Superficial soft tissue swelling is seen compatible cellulitis versus postsurgical changes. ACT 112: Negative or not required by law. Electronically signed by: Chang Monson M.D. 12/26/2022 11:17 AM Knee X-Ray 12/26/22 09:28 XR knee LT 3V CLINICAL HISTORY: pain to walk TECHNIQUE: 3 views of the left knee were obtained. Comparison: None available at the time of this dictation. FINDINGS: There is no evidence of an acute fracture. Joint spaces are well-preserved. No joint effusion is seen. No soft tissue abnormality is seen. IMPRESSION: No evidence of acute osseous injury. ACT 112: Negative or not required by law. Electronically signed by: Chang Monson M.D. 12/26/2022 9:49 AM Hip X-Ray 12/26/22 11:00 FL hip LT 1V CLINICAL HISTORY: LT ANTERIOR HIP TECHNIQUE: 1 views were obtained with the C-arm in the OR with the above procedure. Total fluoroscopy time was 2.9 seconds. Radiation dose was 0.29 mGy. Comparison: Comparison is made to CT head of 12/26/2022 FINDINGS/IMPRESSION: Intraoperative images were obtained of left hip surgery. A left hip total arthroplasty is in place. Please correlate with intraoperative fluoroscopy and operative report. ACT 112: Negative or not required by law. Electronically signed by: Chang Monson M.D. 12/26/2022 2:57 PM Medications Administered Current Inpatient Medications Albuterol (Albuterol Hfa 8 Gm Inhaler) 2 puffs INH Q4H PRN PRN Reason: Shortness Of Breath Stop: 01/25/23 15:56 Albuterol (Albuterol 0.5% Neb Soln 2.5 Mg/0.5 Ml Vial) 0.63 mg INH BIDR [facility] Stop: 01/26/23 18:59 Last Admin: 12/28/22 07:01 Dose: 0.63 mg Aspirin (Aspirin 81 Mg Ectab) 81 mg PO BID [facility] Stop: 01/25/23 20:59 Last Admin: 12/28/22 08:27 Dose: 81 mg Atorvastatin Calcium (Atorvastatin 20 Mg Tab) 20 mg PO QAM [facility] Stop: 01/26/23 08:59 Last Admin: 12/28/22 08:29 Dose: 20 mg Baclofen (Baclofen 10 Mg Tab) 10 mg PO TID [facility] Stop: 01/25/23 20:59 Last Admin: 12/28/22 08:28 Dose: 10 mg Benzonatate (Benzonatate 100 Mg Capsule) 100 mg PO BID [facility] Stop: 01/25/23 20:59 Last Admin: 12/28/22 08:31 Dose: 100 mg Bisacodyl (Bisacodyl 10 Mg Supp) 10 mg AK DAILY PRN PRN Reason: Constipation Stop: 01/25/23 15:56 Diltiazem HCl (Diltiazem Hcl 180 Mg Capcr) 360 mg PO QAM [facility] Stop: 01/26/23 08:59 Last Admin: 12/28/22 08:30 Dose: 360 mg Docusate Sodium (Docusate Sodium 100 Mg Cap) 100 mg PO BID [facility] Stop: 01/25/23 20:59 Last Admin: 12/28/22 08:27 Dose: 100 mg Duloxetine HCl (Duloxetine Hcl 30 Mg Cap) 30 mg PO QAM [facility] Stop: 01/26/23 08:59 Last Admin: 12/28/22 08:29 Dose: 30 mg Duloxetine HCl (Duloxetine Hcl 60 Mg Cap) 60 mg PO QAM [facility] Stop: 01/26/23 08:59 Last Admin: 12/28/22 08:29 Dose: 60 mg Famotidine (Famotidine 20 Mg Tab) 20 mg PO BID [facility] Stop: 01/25/23 20:59 Last Admin: 12/28/22 08:28 Dose: 20 mg Fluticasone Furoate (Fluticasone Furoate 200mcg 14 Puffs/Inhaler) 1 puffs INH DAILY [facility] Stop: 01/26/23 08:59 Last Admin: 12/28/22 08:32 Dose: 1 puffs Furosemide (Furosemide 20 Mg Tab) 20 mg PO QAM [facility] Stop: 01/26/23 08:59 Last Admin: 12/28/22 08:27 Dose: 20 mg Gabapentin (Gabapentin 600 Mg Tab) 600 mg PO TID [facility] Stop: 01/25/23 20:59 Last Admin: 12/28/22 08:31 Dose: 600 mg Hydromorphone HCl (Hydromorphone Inj 0.5 Mg/0.5 Ml Syr) 0.5 mg IV Q4H PRN PRN Reason: Pain or Pre PT Stop: 01/09/23 15:56 Last Admin: 12/28/22 08:37 Dose: 0.5 mg Vancomycin HCl 1,750 mg/ (Sodium Chloride) 535 mls @ 200 mls/hr IV Q12H [facility]; Protocol Stop: 02/08/23 07:59 Last Infusion: 12/28/22 11:27 Dose: Infused Lisinopril (Lisinopril 10 Mg Tab) 10 mg PO QAM [facility] Stop: 01/26/23 08:59 Last Admin: 12/28/22 08:27 Dose: 10 mg Magnesium Hydroxide (Magnesium Hydroxide Susp 30 Ml Udc) 30 ml PO Q6H PRN PRN Reason: Constipation Stop: 01/25/23 15:56 Metoclopramide HCl (Metoclopramide Hcl Inj 5 Mg/Ml 2 Ml Vial) 10 mg IV Q6H PRN PRN Reason: Nausea And Vomiting Stop: 01/25/23 15:56 Metoprolol Succinate (Metoprolol Succ 25mg Ext Rel Tab) 25 mg PO [facility] Stop: 01/25/23 20:59 Last Admin: 12/27/22 20:59 Dose: 25 mg Miscellaneous Information (Vancomycin Consult Active) 1 each N/A UD PRN PRN Reason: Consult Stop: 01/25/23 15:56 Montelukast Sodium (Montelukast Sodium 10 Mg Tablet) 10 mg PO [facility] Stop: 01/25/23 20:59 Last Admin: 12/27/22 20:59 Dose: 10 mg [facility]ivitamins ([facility]itamin Tab) [facility] [place]: 01/26/23 08:59 Last Admin: 12/28/22 08:30 Dose: 1 tab Naloxone HCl (Naloxone Hcl 0.4 Mg/1 Ml Vial/Carp) 0.1 mg IV Q5M PRN PRN Reason: Oversedation/Resp Depression Stop: 01/25/23 15:56 Ivabradine [Corlanor ] 5 Mg Tablet - Non- Formulary Patient's Own Med 1 each EXT Q12H [facility] Stop: 01/26/23 17:59 Last Admin: 12/28/22 07:33 Dose: 1 each Ondansetron HCl (Ondansetron Inj 2 Mg/Ml 2 Ml Vial) 4 mg IV Q6H PRN PRN Reason: Nausea And Vomiting Stop: 01/25/23 15:56 Oxycodone HCl (Oxycodone Hcl Ir 5 Mg Tab (Immediate Release)) 5 - 10 mg PO Q4H PRN PRN Reason: Pain or Pre PT Stop: 01/09/23 15:56 Last Admin: 12/28/22 11:29 Dose: 10 mg Pantoprazole Sodium (Pantoprazole 40 Mg Tab) 40 mg PO BID [facility] Stop: 01/25/23 20:59 Last Admin: 12/28/22 08:28 Dose: 40 mg Rifampin (Rifampin 300 Mg Capsule) 300 mg PO BID [facility] Stop: 02/07/23 20:59 Last Admin: 12/28/22 09:06 Dose: 300 mg Roflumilast (Roflumilast 500 Mcg Tab) 500 mcg PO HS [facility] Stop: 01/25/23 20:59 Last Admin: 12/27/22 20:59 Dose: 500 mcg Sennosides (Senna 8.6 Mg Tab) 17.2 mg PO HS [facility] Stop: 01/25/23 20:59 Last Admin: 12/27/22 20:59 Dose: 17.2 mg Trazodone HCl (Trazodone Hcl 100 Mg Tab) 100 mg PO [facility] Stop: 01/25/23 20:59 Last Admin: 12/27/22 20:59 Dose: 100 mg Umeclidinium/Vilanterol (Umeclidinium/Vilanterol 62.5/25mcg 7 Puffs/Inhaler) 1 puffs INH DAILY [facility] Stop: 01/26/23 08:59 Last Admin: 12/28/22 08:32 Dose: 1 puffs (2) Cellulitis Laterality: left Site of cellulitis: extremity Site of cellulitis of extremity: lower extremity Qualified Code(s): L03.116 - Cellulitis of left lower limb
[2022-12-28] MEDS: cefTRIAXone SODIUM 2,000 MG in DEXTROSE 5% 50 ML IV SCH (14:36)
--- NOTE | 2022-12-28 16:20 | Hospitalist Progress Note ---
Date of Service December 28, 2022 Assessment & Plan (1) Abscess of left hip: Plan: Status post left hip arthroplasty on November 19 of this year. Streptococcus isolated. Blood cultures positive on December 26. Repeat blood cultures drawn on December 27 are negative to date. If they remain negative, will insert PICC line tomorrow. Case discussed with infectious disease. Vancomycin switched to Rocephin which she will need for 6 weeks. Postoperative day #2 after incision and drainage and exchange of ceramic head and liner. Appreciate orthopedic management. (2) Emphysema lung: Plan: Known, with associated chronic respiratory failure usually requiring 2 L of oxygen per nasal cannula. Currently stable. Continue Anoro, Daliresp, Singulair. PFTs consistent with COPD (3) COPD (chronic obstructive pulmonary disease): Plan: Currently stable. Continue current medical management (4) CAD (coronary artery disease): Plan: Stable. Continue current medical management (5) GERD (gastroesophageal reflux disease): Plan: Stable. Takes Pepcid at home. Protonix while hospitalized (6) Anxiety: Plan: Stable. Continue Duloxetine (7) Hypertension: Plan: Stable. Continue diltiazem, metoprolol, lisinopril, Lasix (8) Streptococcal bacteremia: Plan: Infectious disease consultation noted. Vancomycin has been switched to Rocephin which she will need for 6 weeks. If blood cultures remain negative, will insert PICC line tomorrow, December 29. (9) Acute blood loss anemia: Plan: Hemoglobin has drifted down but no indication for transfusion. Serial labs. This could partially be dilutional. Plan Hopeful discharge to home tomorrow, December 29, with continued IV antibiotic therapy for 6 weeks (Rocephin) Admission and Anticipated Discharge Date Admission Date: December 27, 2022 Subjective Alert and oriented. No acute distress. Case discussed with infectious disease. Vancomycin has been switched to Rocephin which she will need for 6 weeks. Will insert PICC line tomorrow, December 29, if blood cultures remain negative. White blood cell count is trending down. Postoperative day #2 after incision and drainage and exchange of head and liner. Review of Systems Review of Systems: Constitutional-no fever or chills ENT-no blurred vision, no double vision, no epistaxis, no sore throat Respiratory-no cough, no wheezing, no shortness of breath Cardiac-no palpitations, no chest pain, no syncope GI-no nausea, vomiting, diarrhea, melena, hematochezia -no urinary retention, no urinary incontinence, no dysuria, no hematuria Musculoskeletal-left hip discomfort with weightbearing as expected Skin-no bruising, no rashes, no pruritus Neuro-no isolated weakness, no paresthesia, no weakness Psych-no depression, no anxiety Physical Exam Physical Exam: General-alert and oriented x3, no fevers, no chills HEENT-head atraumatic and normocephalic, pupils equal and reactive to light, extraocular muscles intact Neck-no lymphadenopathy or thyromegaly, trachea midline Chest-clear to auscultation percussion. No rales wheezing or rhonchi Cardiac-regular rate and rhythm, normal S1 and S2 Abdomen-normal bowel sounds, nontender, no hepatosplenomegaly Extremities-left hip drain in place. Incision site unremarkable. Neuro-cranial nerves II through XII intact, motor and sensory function within normal limits, strength symmetrical , no focal deficits Psych-normal affect, normal mood Results & Data Results & Data Vital Signs (Past 12 Hours) Vital Signs Temp Pulse Pulse Resp BP Pulse Ox O2 Del Method 12/28/22 15:27 37.2 C 89 20 145/81 H 95 Nasal Cannula 12/28/22 11:18 36.9 C 86 20 128/65 93 Nasal Cannula 12/28/22 07:00 77 12/28/22 09:19 Nasal Cannula 12/28/22 07:45 37.8 C H 83 20 136/76 96 Nasal Cannula 12/28/22 07:02 82 16 95 Room Air O2 Flow Rate 12/28/22 15:27 2 12/28/22 11:18 2 12/28/22 07:00 12/28/22 09:19 2 12/28/22 07:45 2 12/28/22 07:02 Laboratory Results 12/28/22 06:37 12/28/22 06:37 PG Care Time/CCT Total # of Minutes Spent Total Time Spent with Patient: Total time spent is greater than 50% in coordination of care (as documented) at patient's floor/unit and/or counseling patient: Coding Level of Care Code 74905 SUB INP/OBS CARE 3/50MIN Diagnoses Abscess of left hip L02.416 Emphysema lung J43.9 COPD (chronic obstructive pulmonary disease) J44.9 CAD (coronary artery disease) I25.10 GERD (gastroesophageal reflux disease) K21.9 Anxiety F41.9 Hypertension I10 Streptococcal bacteremia R78.81; B95.5 Acute blood loss anemia D62
[2022-12-28] MEDS: MONTELUKAST SODIUM 10 MG TABLET PO SCH (21:24)
[2022-12-28] MEDS: traZODone HCL 100 MG TAB PO SCH (21:24)
[2022-12-28] MEDS: ROFLUMILAST 500 MCG TAB PO SCH (21:24)
[2022-12-28] MEDS: SENNA 8.6 MG TAB PO SCH (21:25)
[2022-12-28] MEDS: METOPROLOL SUCC 25MG EXT REL TAB PO SCH (21:25)
[2022-12-29] MEDS ORDERED: ACETAMINOPHEN 325 MG TAB PO PRN (00:20)
[2022-12-29] MEDS: oxyCODONE HCL IR 5 MG TAB (IMMEDIATE RELEASE) PO PRN ×2 (01:43→06:26)
--- NOTE | 2022-12-29 06:50 | Orthopedic Progress Note ---
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 He was seen by infectious disease yesterday. He was started on ceftriaxone and the rifampin was discontinued. He will need 6 weeks of IV ceftriaxone. We are currently awaiting blood cultures to be negative for [address] a PICC line. If the blood cultures are negative today then a PICC line can be placed and he may possibly be discharged later today. He is on aspirin for DVT prophylaxis. Betzaida Fu was seen and examined at bedside this morning. Overall is doing fairly well. He is not having too much hip pain. He is up and ambulating around the hallways. He is hoping to go home today. He has no new complaints.. Review of Systems All systems reviewed & are unremarkable except as noted in HPI & below. Physical Exam On physical examination of the left hip, the dressing is clean and dry. I did remove the drain this morning.. Results & Data Results & Data Laboratory Results . Diagnostic Findings . PG Care Time/CCT Total # of Minutes Spent Total Time Spent with Patient: Total time spent is greater than 50% in coordination of care (as documented) at patient's floor/unit and/or counseling patient: Coding Level of Care Code 90487 Post Operative Follow-Up Diagnoses Prosthetic hip infection T84.59XA; Z96.649
[2022-12-29] MEDS: ALBUTEROL 0.5% NEB SOLN 2.5 MG/0.5 ML VIAL INH SCH (07:16)
[2022-12-29 08:07] LABS: Basophils # (auto) 0.07 K/uL (0-0.2); Basophils % (auto) 0.7 %; Eosinophils # (auto) 0.38 K/uL (0-0.50); Eosinophils % (auto) 3.6 %; Hematocrit (blood only) 28.1 % (42.0-52.0); Hemoglobin 9.2 g/dl (14.0-18.0); Immature Granulocytes # (auto) 0.11 K/uL (0.01-0.20); Mean Corpuscular Hemoglobin 29.7 pg (25.0-34.0); Mean Corpuscular Hgb Conc 32.7 g/dL (32.0-36.0); Mean Corpuscular Volume 90.6 fL (80.0-100.0); Monocytes # (auto) 0.82 K/uL (0.11-0.59); Monocytes % (auto) 7.8 %; Neutrophils # (auto) 7.04 K/uL (1.40-6.50); Neutrophils % (auto) 66.9 %; Platelet Count 293 K/uL (130-400); RDW Coefficient of Variation 12.7 % (11.5-14.5); RDW Standard Deviation 42.1 fL (36.4-46.3); White Blood Count 10.52 K/ul (4.8-10.8)
[2022-12-29 08:37] LABS: BUN Creatinine Ratio 10.5 (10-20); Creatinine Clr Calc Pharmacy 113.1 ml/min; Est GFR (Non-African American) 92.3 ml/min; Potassium 4.2 mmol/L (3.5-5.1)
[2022-12-29] MEDS: IVABRADINE 5 MG EXT SCH (08:43)
[2022-12-29] MEDS: dilTIAZem HCL 180 MG CAPCR PO SCH (08:44)
[2022-12-29] MEDS: PANTOprazole 40 MG TAB PO SCH (08:44)
[2022-12-29] MEDS: ATORVASTATIN 20 MG TAB PO SCH (08:44)
[2022-12-29] MEDS: ASPIRIN 81 MG ECTAB PO SCH (08:44)
[2022-12-29] MEDS: MULTIVITAMIN TAB PO SCH (08:44)
[2022-12-29] MEDS: GABAPENTIN 600 MG TAB PO SCH ×2 (08:44→15:04)
[2022-12-29] MEDS: FUROSEMIDE 20 MG TAB PO SCH (08:45)
[2022-12-29] MEDS: DULoxetine HCL 30 MG CAP PO SCH (08:45)
[2022-12-29] MEDS: lisinopril 10 MG TAB PO SCH (08:45)
[2022-12-29] MEDS: FAMOTIDINE 20 MG TAB PO SCH (08:45)
[2022-12-29] MEDS: DULoxetine HCL 60 MG CAP PO SCH (08:45)
[2022-12-29] MEDS: DOCUSATE SODIUM 100 MG CAP PO SCH (08:48)
[2022-12-29] MEDS: BENZONATATE 100 MG CAPSULE PO SCH (08:50)
[2022-12-29] MEDS: BACLOFEN 10 MG TAB PO SCH ×2 (09:46→15:31)
[2022-12-29] MEDS: FLUTICASONE FUROATE 200MCG 14 PUFFS/INHALER INH SCH (09:47)
[2022-12-29] MEDS: UMECLIDINIUM/VILANTEROL 62.5/25MCG 7 PUFFS/INHALER INH SCH (09:47)
[2022-12-29] MEDS ORDERED: LORazepam 2 MG/1 ML VIAL IV STA (10:37)
--- NOTE | 2022-12-29 14:14 | Infectious Disease Progress Nt ---
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 Infectious diseases consulted for prosthetic joint infection. Patient underwent left anterior PYHLLIS on 11/19/22 without issue. Incision site healed well and there appeared to be no complications. However he noted a redness over hip.Cellulitis started 12/25 started on methylprednisolone by Orthopaedics, redness and pain worsened patient came to ED on 12/26. No injury to hip, no animal bites, no drainage. In the ED, hew as afebrile, but WBC 20,000. ESR 46, normal lactate. Left hip CT demonstrated Intramuscular collection likely in the tensor fascia dell concerning for intramuscular abscess. Left knee negative for gas, osteomyelitis, fracture or dislocation, no large joint effusion. He received Vancomycin, Cefepime. 12/26 blood cultures growing Strep pyogenes bottles, repeat 12/27 blood cultures no growth to date. On 12/26 he underwent L anterior hip I+D with ceramic head and polyethylene line exchange. OR cultures grew Group A beta hemolytic strep, Since then he has been afebrile, he remains on current level home oxygen, 2L. WBC has improved. On my interview today, he is feeling well. We reviewed his PMH, PSH. He is not allergic to antibiotics. Discussion: Patient with PJI and bacteremia secondary to strep cellulitis s/p polyexchange. He will need 6 weeks of IV abx followed by oral suppressive therapy for at least one year. I will ask micro to add MICs to strep. We can narrow to Ceftriaxone, if his cultures from blood are negative times 48 hours (/ cx P) then can place PICC line. He does need rifampin in this case as this is not staph aureus (2) Cellulitis: (3) Status post hip surgery: (4) Prosthetic hip infection: Plan Recommend -CW Ceftriaxone 2G IV Daily -4/3 blood cultures are negative at 48 hours, can place PICC line -Anticipate 6 weeks therapy from exchange with IV ceftriaxone through 02/06/23 with weekly CBC with diff, CMP sent to PMD/ID -This should then be followed by oral suppressive therapy for at least one year either Penicillin VK or Amoxicillin pending sensitivities of strep Thank you For this consult, ID will follow while inpatient Would strongly recommend he see ID outpatient given his prolonged antibiotics Janet Zeng MD Infectious Diseases Admission and Anticipated Discharge Date Admission Date: December 27, 2022 Subjective This patient recommendation is based on a telemedicine consult request which was completed asynchronously through chart review and information provided by the primary physician. The patient was not seen or examined today. The evaluation is consultative in nature and all patient care and treatment decisions can either be accepted or rejected by the patient's primary hospital-based treating physician using their own independent medical judgment for their patient. Time Spent Reviewing Chart: 21 - 30 minutes 24 hours KASHIF o/n 4/3 Blood cultures prelim no growth at 48 hours Results & Data Vital Signs (Past 12 Hours) Vital Signs Temp Pulse Pulse Resp BP Pulse Ox O2 Del Method 12/29/22 11:41 37.1 C 106 H 16 138/80 97 Room Air 12/29/22 07:00 112 H 12/29/22 07:41 36.9 C 86 16 125/73 100 Room Air 12/29/22 07:19 91 H 18 97 Nasal Cannula 12/29/22 03:56 Nasal Cannula 12/29/22 03:34 37.0 C 88 20 126/64 97 Nasal Cannula O2 Flow Rate 12/29/22 11:41 12/29/22 07:00 12/29/22 07:41 12/29/22 07:19 2 12/29/22 03:56 3 12/29/22 03:34 Laboratory Results Laboratory Results - last 48 hr 12/28/22 12/28/22 12/28/22 06:37 06:37 06:37 WBC 12.81 H RBC 3.12 L Hgb 9.3 L Hct 28.0 L MCV 89.7 MCH 29.8 MCHC 33.2 RDW Std Deviation 41.7 RDW Coeff of Olivia 12.6 Plt Count 280 MPV 9.8 Immature Gran % (Auto) 0.6 Neut % (Auto) 67.6 Lymph % (Auto) 22.2 [place] % (Auto) 7.9 Eos % (Auto) 1.2 Baso % (Auto) 0.5 Neut # (Auto) 8.67 H Lymph # (Auto) 2.84 [place] # (Auto) 1.01 H Eos # (Auto) 0.15 Baso # (Auto) 0.06 Immature Gran # (Auto) 0.08 Sodium 140 Potassium 3.6 Chloride 105 Carbon Dioxide 28 Anion Gap 7 BUN 12 Creatinine 0.86 Est Cr Clr Drug Dosing 125.3 Est GFR ( Amer) 116.4 Est GFR (Non-Af Amer) 100.4 BUN/Creatinine Ratio 14.0 Glucose 94 Calcium 8.6 Random Vancomycin 14.3 12/29/22 12/29/22 07:49 07:49 WBC 10.52 RBC 3.10 L Hgb 9.2 L Hct 28.1 L MCV 90.6 MCH 29.7 MCHC 32.7 RDW Std Deviation 42.1 RDW Coeff of Olivia 12.7 Plt Count 293 MPV 9.0 L Immature Gran % (Auto) 1.0 Neut % (Auto) 66.9 Lymph % (Auto) 20.0 [place] % (Auto) 7.8 Eos % (Auto) 3.6 Baso % (Auto) 0.7 Neut # (Auto) 7.04 H Lymph # (Auto) 2.10 [place] # (Auto) 0.82 H Eos # (Auto) 0.38 Baso # (Auto) 0.07 Immature Gran # (Auto) 0.11 Sodium 138 Potassium 4.2 Chloride 103 Carbon Dioxide 29 Anion Gap 6 BUN 10 Creatinine 0.95 Est Cr Clr Drug Dosing 113.1 Est GFR ( Amer) 107.0 Est GFR (Non-Af Amer) 92.3 BUN/Creatinine Ratio 10.5 Glucose 108 H Calcium 9.0 Random Vancomycin Microbiology 12/27/22 11:00 Blood Aerobic Blood Culture - Preliminary No growth in Aerobic bottle after 48 hours. 12/27/22 11:00 Blood Anaerobic Blood Culture - Preliminary No growth in Anaerobic bottle after 48 hours. 12/27/22 11:10 Blood Aerobic Blood Culture - Preliminary No growth in Aerobic bottle after 48 hours. 12/27/22 11:10 Blood Anaerobic Blood Culture - Preliminary No growth in Anaerobic bottle after 48 hours. 12/26/22 Unknown Hip,Left Gram Stain - Final 12/26/22 Unknown Hip,Left Aerobic and Anaerobic Culture - Preliminary Group A Beta Strep 12/26/22 09:33 Blood Aerobic Blood Culture - Preliminary No growth in Aerobic bottle after 48 hours. 12/26/22 09:33 Blood Anaerobic Blood Culture - Preliminary Group A Beta Strep 12/26/22 09:33 Blood Aerobic Blood Culture - Preliminary No growth in Aerobic bottle after 48 hours. 12/26/22 09:33 Blood Anaerobic Blood Culture - Preliminary No growth in Anaerobic bottle after 48 hours. Medications Administered Current Inpatient Medications Acetaminophen (Acetaminophen 325 Mg Tab) 650 mg PO Q4H PRN PRN Reason: Pain or Fever Stop: 01/28/23 00:19 Last Admin: 12/29/22 00:36 Dose: 650 mg Albuterol (Albuterol Hfa 8 Gm Inhaler) 2 puffs INH Q4H PRN PRN Reason: Shortness Of Breath Stop: 01/25/23 15:56 Albuterol (Albuterol 0.5% Neb Soln 2.5 Mg/0.5 Ml Vial) 0.63 mg INH BIDR [facility] Stop: 01/26/23 18:59 Last Admin: 12/29/22 07:16 Dose: 0.63 mg Aspirin (Aspirin 81 Mg Ectab) 81 mg PO BID [facility] Stop: 01/25/23 20:59 Last Admin: 12/29/22 08:44 Dose: 81 mg Atorvastatin Calcium (Atorvastatin 20 Mg Tab) 20 mg PO QAM [facility] Stop: 01/26/23 08:59 Last Admin: 12/29/22 08:44 Dose: 20 mg Baclofen (Baclofen 10 Mg Tab) 10 mg PO TID [facility] Stop: 01/25/23 20:59 Last Admin: 12/29/22 09:46 Dose: 10 mg Benzonatate (Benzonatate 100 Mg Capsule) 100 mg PO BID [facility] Stop: 01/25/23 20:59 Last Admin: 12/29/22 08:50 Dose: 100 mg Bisacodyl (Bisacodyl 10 Mg Supp) 10 mg [place] DAILY PRN PRN Reason: Constipation Stop: 01/25/23 15:56 Diltiazem HCl (Diltiazem Hcl 180 Mg Capcr) 360 mg PO QAM [facility] Stop: 01/26/23 08:59 Last Admin: 12/29/22 08:44 Dose: 360 mg Docusate Sodium (Docusate Sodium 100 Mg Cap) 100 mg PO BID [facility] Stop: 01/25/23 20:59 Last Admin: 12/29/22 08:48 Dose: 100 mg Duloxetine HCl (Duloxetine Hcl 30 Mg Cap) 30 mg PO QAM [facility] Stop: 01/26/23 08:59 Last Admin: 12/29/22 08:45 Dose: 30 mg Duloxetine HCl (Duloxetine Hcl 60 Mg Cap) 60 mg PO QAM [facility] Stop: 01/26/23 08:59 Last Admin: 12/29/22 08:45 Dose: 60 mg Famotidine (Famotidine 20 Mg Tab) 20 mg PO BID [facility] Stop: 01/25/23 20:59 Last Admin: 12/29/22 08:45 Dose: 20 mg Fluticasone Furoate (Fluticasone Furoate 200mcg 14 Puffs/Inhaler) 1 puffs INH DAILY [facility] Stop: 01/26/23 08:59 Last Admin: 12/29/22 09:47 Dose: 1 puffs Furosemide (Furosemide 20 Mg Tab) 20 mg PO QAM [facility] Stop: 01/26/23 08:59 Last Admin: 12/29/22 08:45 Dose: 20 mg Gabapentin (Gabapentin 600 Mg Tab) 600 mg PO TID [facility] Stop: 01/25/23 20:59 Last Admin: 12/29/22 08:44 Dose: 600 mg Hydromorphone HCl (Hydromorphone Inj 0.5 Mg/0.5 Ml Syr) 0.5 mg IV Q4H PRN PRN Reason: Pain or Pre PT Stop: 01/09/23 15:56 Last Admin: 12/28/22 19:33 Dose: 0.5 mg Ceftriaxone Sodium 2,000 mg/ (Dextrose) 70 mls @ 100 mls/hr IV Q24H [facility]; Protocol Stop: 01/11/23 14:59 Last Infusion: 12/28/22 16:08 Dose: Infused Lisinopril (Lisinopril 10 Mg Tab) 10 mg PO QAM [facility] Stop: 01/26/23 08:59 Last Admin: 12/29/22 08:45 Dose: 10 mg Magnesium Hydroxide (Magnesium Hydroxide Susp 30 Ml Udc) 30 ml PO Q6H PRN PRN Reason: Constipation Stop: 01/25/23 15:56 Metoclopramide HCl (Metoclopramide Hcl Inj 5 Mg/Ml 2 Ml Vial) 10 mg IV Q6H PRN PRN Reason: Nausea And Vomiting Stop: 01/25/23 15:56 Metoprolol Succinate (Metoprolol Succ 25mg Ext Rel Tab) 25 mg PO [facility] Stop: 01/25/23 20:59 Last Admin: 12/28/22 21:25 Dose: 25 mg Montelukast Sodium (Montelukast Sodium 10 Mg Tablet) 10 mg PO HS [facility] Stop: 01/25/23 20:59 Last Admin: 12/28/22 21:24 Dose: 10 mg Multivitamins (Multivitamin Tab) 1 tab PO QAM [facility] Stop: 01/26/23 08:59 Last Admin: 12/29/22 08:44 Dose: 1 tab Naloxone HCl (Naloxone Hcl 0.4 Mg/1 Ml Vial/Carp) 0.1 mg IV Q5M PRN PRN Reason: Oversedation/Resp Depression Stop: 01/25/23 15:56 Ivabradine [Corlanor ] 5 Mg Tablet - Non- Formulary Patient's Own Med 1 each EXT Q12H [facility] Stop: 01/26/23 17:59 Last Admin: 12/29/22 08:43 Dose: 1 each Ondansetron HCl (Ondansetron Inj 2 Mg/Ml 2 Ml Vial) 4 mg IV Q6H PRN PRN Reason: Nausea And Vomiting Stop: 01/25/23 15:56 Oxycodone HCl (Oxycodone Hcl Ir 5 Mg Tab (Immediate Release)) 5 - 10 mg PO Q4H PRN PRN Reason: Pain or Pre PT Stop: 01/09/23 15:56 Last Admin: 12/29/22 06:26 Dose: 10 mg Pantoprazole Sodium (Pantoprazole 40 Mg Tab) 40 mg PO BID [facility] Stop: 01/25/23 20:59 Last Admin: 12/29/22 08:44 Dose: 40 mg Roflumilast (Roflumilast 500 Mcg Tab) 500 mcg PO [facility] Stop: 01/25/23 20:59 Last Admin: 12/28/22 21:24 Dose: 500 mcg Sennosides (Senna 8.6 Mg Tab) 17.2 mg PO [facility] Stop: 01/25/23 20:59 Last Admin: 04/04/23 21:25 Dose: 17.2 mg Trazodone HCl (Trazodone Hcl 100 Mg Tab) 100 mg PO HS [facility] Stop: 01/25/23 20:59 Last Admin: 12/28/22 21:24 Dose: 100 mg Umeclidinium/Vilanterol (Umeclidinium/Vilanterol 62.5/25mcg 7 Puffs/Inhaler) 1 puffs INH DAILY [facility] Stop: 01/26/23 08:59 Last Admin: 12/29/22 09:47 Dose: 1 puffs (2) Cellulitis Laterality: left Site of cellulitis: extremity Site of cellulitis of extremity: lower extremity Qualified Code(s): L03.116 - Cellulitis of left lower limb
--- NOTE | 2022-12-29 15:16 | Hospitalist Progress Note ---
Date of Service December 29, 2022 Assessment & Plan (1) Abscess of left hip: Plan: Status post left hip arthroplasty on November 19 of this year. Streptococcus isolated. Blood cultures positive on December 26. Repeat blood cultures drawn on December 27 are negative to date. Left upper extremity PICC line was placed today, December 29. Case discussed with infectious disease. Vancomycin has been switched to Rocephin which he will need for 6 weeks. Postoperative day #3 after incision and drainage and exchange of ceramic head and liner. Appreciate orthopedic management. (2) Emphysema lung: Plan: Known, with associated chronic respiratory failure usually requiring 2 L of oxygen per nasal cannula. Currently stable. Continue Anoro, Daliresp, Singulair. PFTs consistent with COPD (3) COPD (chronic obstructive pulmonary disease): Plan: Currently stable. Continue current medical management (4) CAD (coronary artery disease): Plan: Stable. Continue current medical management (5) GERD (gastroesophageal reflux disease): Plan: Stable. Takes Pepcid at home. Protonix while hospitalized (6) Anxiety: Plan: Stable. Continue Duloxetine (7) Hypertension: Plan: Stable. Continue diltiazem, metoprolol, lisinopril, Lasix (8) Streptococcal bacteremia: Plan: Infectious disease consultation noted. Vancomycin has been switched to Rocephin which he will need for 6 weeks. Blood cultures are now negative. PICC line inserted in the left upper extremity today, December 29. (9) Acute blood loss anemia: Plan: Hemoglobin has drifted down but no indication for transfusion. Now stable. Serial labs. This could partially be dilutional. Plan discharge to home tomorrow when home IV antibiotic therapy is finalized. IV antibiotic therapy for 6 weeks (Rocephin) Admission and Anticipated Discharge Date Admission Date: December 27, 2022 Subjective The patient was anxious this morning when I made rounds and was given intravenous Ativan. He is now somnolent but arousable. PICC line has been placed in the left arm. Case management working on Rocephin dosage which will continue for 6 weeks. Review of Systems Review of Systems: Constitutional-no fever or chills ENT-no blurred vision, no double vision, no epistaxis, no sore throat Respiratory-no cough, no wheezing, no shortness of breath Cardiac-no palpitations, no chest pain, no syncope GI-no nausea, vomiting, diarrhea, melena, hematochezia -no urinary retention, no urinary incontinence, no dysuria, no hematuria Musculoskeletal-left hip discomfort with weightbearing as expected Skin-no bruising, no rashes, no pruritus Neuro-no isolated weakness, no paresthesia, no weakness Psych-no depression, no anxiety Physical Exam Physical Exam: General-somnolent but easily arousable. No fevers, no chills HEENT-head atraumatic and normocephalic, pupils equal and reactive to light, extraocular muscles intact Neck-no lymphadenopathy or thyromegaly, trachea midline Chest-clear to auscultation percussion. No rales wheezing or rhonchi Cardiac-regular rate and rhythm, normal S1 and S2 Abdomen-normal bowel sounds, nontender, no hepatosplenomegaly Extremities-left hip drain in place. Incision site unremarkable. Neuro-cranial nerves II through XII intact, motor and sensory function within n ormal limits, strength symmetrical , no focal deficits Psych-normal affect, normal mood Results & Data Results & Data Vital Signs (Past 12 Hours) Vital Signs Temp Pulse Pulse Resp BP Pulse Ox O2 Del Method 12/29/22 11:41 37.1 C 106 H 16 138/80 97 Room Air 12/29/22 07:00 112 H 12/29/22 07:41 36.9 C 86 16 125/73 100 Room Air 12/29/22 07:19 91 H 18 97 Nasal Cannula 12/29/22 03:56 Nasal Cannula 12/29/22 03:34 37.0 C 88 20 126/64 97 Nasal Cannula O2 Flow Rate 12/29/22 11:41 12/29/22 07:00 12/29/22 07:41 12/29/22 07:19 2 12/29/22 03:56 3 12/29/22 03:34 Laboratory Results 12/29/22 07:49 12/29/22 07:49 PG Care Time/CCT Total # of Minutes Spent Total Time Spent with Patient: Total time spent is greater than 50% in coordination of care (as documented) at patient's floor/unit and/or counseling patient: Coding Level of Care Code 10664 SUB INP/OBS CARE 3/50MIN Diagnoses Abscess of left hip L02.416 Emphysema lung J43.9 COPD (chronic obstructive pulmonary disease) J44.9 CAD (coronary artery disease) I25.10 GERD (gastroesophageal reflux disease) K21.9 Anxiety F41.9 Hypertension I10 Streptococcal bacteremia R78.81; B95.5 Acute blood loss anemia D62
[2022-12-29] MEDS: cefTRIAXone SODIUM 2,000 MG in DEXTROSE 5% 50 ML IV SCH (15:31)
--- NOTE | 2022-12-29 15:57 | Discharge Summary ---
Date of Service December 29, 2022 Principal Diagnosis Streptococcal bacteremia, left total hip arthroplasty infection, acute blood loss anemia, SIRS present on admission Discharge Exam General-somnolent but easily arousable. No fevers, no chills HEENT-head atraumatic and normocephalic, pupils equal and reactive to light, extraocular muscles intact Neck-no lymphadenopathy or thyromegaly, trachea midline Chest-clear to auscultation percussion. No rales wheezing or rhonchi Cardiac-regular rate and rhythm, normal S1 and S2 Abdomen-normal bowel sounds, nontender, no hepatosplenomegaly Extremities-left hip drain in place. Incision site unremarkable. Neuro-cranial nerves II through XII intact, motor and sensory function within normal limits, strength symmetrical , no focal deficits Psych-normal affect, normal mood Discharge Data Allergies Allergy/AdvReac Type Severity Reaction Status Date / Time prednisone Allergy rash Verified 12/26/22 11:25 Consultations 12/26/22 10:26 Consult Orthopedic Surgery Stat 12/26/22 15:57 Consult Internal Medicine Routine 12/27/22 12:05 Consult Infectious Diseases Stat Procedures Performed Operation Date: 12/26/22 11:10 Actual Procedures p Left Anterior Hip Incision and Drainage, Poly Exchange(Left) - Nayan Burgos DO Ordered Studies 12/26/22 09:01 CT hip LT w con Stat 12/26/22 11:00 FL hip LT 1V Routine Hospital Course (1) Abscess of left hip: Status post left hip arthroplasty on November 19 of this year. Streptococcus isolated. Blood cultures positive on December 26. Repeat blood cultures drawn on December 27 are negative to date. Left upper extremity PICC line was placed today, December 29. Case discussed with infectious disease. Vancomycin has been switched to Rocephin which he will need for 6 weeks. Postoperative day #3 after incision and drainage and exchange of ceramic head and liner. Appreciate orthopedic management. (2) Emphysema lung: Known, with associated chronic respiratory failure usually requiring 2 L of oxygen per nasal cannula. Currently stable. Continue Anoro, Daliresp, Singulair. PFTs consistent with COPD (3) COPD (chronic obstructive pulmonary disease): Currently stable. Continue current medical management (4) CAD (coronary artery disease): Stable. Continue current medical management (5) GERD (gastroesophageal reflux disease): Stable. Takes Pepcid at home. Protonix while hospitalized (6) Anxiety: Stable. Continue Duloxetine (7) Hypertension: Stable. Continue diltiazem, metoprolol, lisinopril, Lasix (8) Streptococcal bacteremia: Infectious disease consultation noted. Vancomycin has been switched to Rocephin which he will need for 6 weeks. Blood cultures are now negative. PICC line inserted in the left upper extremity today, December 29. (9) Acute blood loss anemia: Hemoglobin has drifted down but no indication for transfusion. Now stable. Serial labs. This could partially be dilutional. Plan discharge to home tomorrow when home IV antibiotic therapy is finalized. IV antibiotic therapy for 6 weeks (Rocephin) Total Time Total Time Spent Total Time Spent (In Minutes): 40 minutes Discharge Plan Discharge Items Patient Disposition: Home - Home Health Services Reason For Visit: POST SURGICAL CARE Discharge Diagnosis: Left hip periprosthetic joint infection Condition on Discharge: Fair Activity: As commented below Non-emergency contact: Surgeon Call non-emergency contact if: your wound has increased redness and your wound has increased drainage Follow-up/Referrals: Mike Singh MD [Primary Care Provider] - Diet: Regular Addtl Attending Provider Instructions: Activity and Therapy Recommendations: Continue your regimen of physical therapy as before the hip infection. Medications: * Narcotic You will likely be sent home from the hospital with a prescription for the narcotic pain medication that worked best throughout your stay. * Aspirin Most patients will be required to take Aspirin 81mg twice a day for 6 weeks after surgery. This is obtained [id number] and a prescription is not necessary. * Take IV ceftriaxone as prescribed by infectious disease. * Resume previous home medications unless otherwise instructed TEDs/Elastic Stockings: The white elastic stockings help limit swelling and prevent blood clots from forming in your legs. The more you wear them, the more they work. Wear them for six weeks. Dressing Care: Leave the Silverlon dressing in place for 7 days. After 7 days you may remove the dressing. If the incision is not draining then you may leave the ricco open to air. If there is a little bit of drainage or if the ricco are getting stuck on your clothing then cover the incision with a dry dressing. The ricco will be removed at your 2 week follow-up appointment. Showering: Do not get the incision wet for 7 days from the date of recent surgery. After 7 days, you may shower normally with the shower water running over the ricco. Just pat it dry. Do not scrub or soak the incision. Things To Watch For: * Drainage from the incision site that occurs more than one week after your surgery. * Increased redness at the incision site. * Fever above 102 degrees Fahrenheit. * Unusual chest pain or shortness of breath. * Call [facility] at with any of the above problems Follow-Up Visit: Follow-up with Dr. Burgos's PA (Nayan Lion) 2-3 weeks after your day of surgery. He will remove your ricco and answer any questions. If you have any additional questions or concerns, Dr Burgos is usually in the office at the same time and will be available Please call the office to set up an appointment for a time that works for you. [phone] Pending Studies at Discharge: No Stand-Alone Forms: My [facility], Smoking Cessation Medications and DC Order Prescriptions: New ceftriaxone 2 gram recon soln 2 g IV DAILY Qty: 48 0RF Continued montelukast [Singulair] 10 mg tablet 10 mg PO HS benzonatate 100 mg capsule 100 mg PO BID trazodone 50 mg tablet 100 mg PO HS Daliresp 500 mcg tablet 500 mcg PO HS albuterol sulfate 0.63 mg/3 mL solution for nebulization 0.63 mg INH BID albuterol sulfate 90 mcg/actuation HFA aerosol inhaler 2 puffs INH Q4H PRN (Reason: Shortness Of Breath) (DME) Oxygen Home Liters Per Minute See Rx Instructions .ROUTE .MEDSUPPLY Qty: 1 Rx Instructions: As directed duloxetine [Cymbalta] 30 mg capsule,delayed release(DR/EC) 30 mg PO QAM Rx Instructions: w/ 60mg tab for 90mg total methylprednisolone 8 mg tablet 8 mg PO BID PRN (Reason: breathing flare up) lisinopril [Prinivil] 10 mg tablet 10 mg PO QAM gabapentin 600 mg tablet 600 mg PO TID Qty: 270 1RF methylprednisolone [Medrol (Sharath)] 4 mg tablets,dose pack 4 mg PO UD Qty: 21 0RF celecoxib 200 mg capsule 200 mg PO BID baclofen 10 mg tablet 10 mg PO TID atorvastatin 20 mg Tablet 20 mg PO QAM diltiazem HCl [Tiadylt ER] 360 mg Capsule,Extended Release 24 Hr 360 mg PO QAM omeprazole 40 mg Capsule,Delayed Release(Dr/Ec) 40 mg PO BID famotidine 20 mg Tablet 20 mg PO BID furosemide 20 mg Tablet 20 mg PO QAM metoprolol succinate 25 mg Tablet Extended Release 24 Hr 25 mg PO HS ibuprofen 600 mg Tablet 600 mg PO TID docusate sodium 100 mg Tablet 100 mg PO QID duloxetine [Cymbalta] 60 mg Capsule,Delayed Release(Dr/Ec) 60 mg PO QAM Rx Instructions: w/30mg tab for 90mg total diclofenac sodium 1 % Gel 2 g TOPICAL QID PRN (Reason: Pain) Corlanor 5 mg Tablet 5 mg PO BID Rx Instructions: must administer with a meal/food Trelegy Ellipta 200-62.5-25 mcg Blister With Device 1 inh INHALATION QAM aspirin 81 mg Tablet,Delayed Release (Dr/Ec) 81 mg PO BID 42 Days Qty: 0 0RF oxycodone-acetaminophen [Percocet] 10-325 mg tablet 1 tab PO UD PRN (Reason: Pain) Qty: 40 0RF Rx Instructions: 5 times daily Admission Data Admit Date/Time: 12/27/22 11:56 Attending Provider: Nayan Burgos Admit Provider: Nayan Burgos Primary Care Provider: Mike Singh Other Providers: Nayan Burgos ; Janelle Munoz ; Taco Kellogg ; Darlyn Cook ; Miguelina Alexander ; Afua Jean ; Janet Zeng ; Alicia Hargrove ; Hannah Rose ; Carmen Maynard ; Angus Fraga ; Ramy Mason Coding Level of Care Code 54166 INP/OBS DISCH >30 MIN Diagnoses Abscess of left hip L02.416 Emphysema lung J43.9 COPD (chronic obstructive pulmonary disease) J44.9 CAD (coronary artery disease) I25.10 GERD (gastroesophageal reflux disease) K21.9 Anxiety F41.9 Hypertension I10 Streptococcal bacteremia R78.81; B95.5 Acute blood loss anemia D62
--- NOTE | 2022-12-29 17:58 | Discharge Summary ---
Date of Service December 29, 2022 Admission HPI (Per Admitting) Tank is a pleasant 52-year-old male who underwent a left anterior total of arthroplasty on November 19, 2022. He did not have any complications postoperatively. His incision healed uneventfully. He has been doing really well until about 3 days ago. He began noticing pain and redness in his left gluteal region. The redness then became a little bit worse yesterday. Today he says that he can no longer put weight on his hip. Its become much more painful. He was feeling sick. He came to the emergency room. Lab work was suggestive of infection. CT scan did show a deep infection of the left hip. Please be admitted to the orthopedic service for irrigation and debridement and poly exchange of his left hip.. Admission Exam (Per Admitting) On physical examination of the left hip, there is redness around the gluteal region. The incision looks great. The incision is fully healed. He does have pain with range of motion of his hip. His pain radiates down towards his knee.. Principal Diagnosis Same as "Discharge Diagnosis" noted below under Discharge Instructions. Discharge Exam On physical examination of the left hip, the dressing is clean and dry. I did remove the drain this morning.. Discharge Data Consultations 12/26/22 10:26 Consult Orthopedic Surgery Stat 12/26/22 15:57 Consult Internal Medicine Routine 12/27/22 12:05 Consult Infectious Diseases Stat Procedures Performed Operation Date: 12/26/22 11:10 Actual Procedures p Left Anterior Hip Incision and Drainage, Poly Exchange(Left) - Nayan Burgos, Ordered Studies 12/26/22 09:01 CT hip LT w con Stat 12/26/22 11:00 FL hip LT 1V Routine Hospital Course (1) Prosthetic hip infection: On December 26, 2022 Tank came to [facility] in the emergency room with acute and debilitating pain of his left hip. He underwent a left hip replacement 5 weeks ago. Imaging studies and lab results were diagnostic for a periprosthetic hip infraction. He was then taken to the operating room and underwent an irrigation and debridement with modular component exchange of his left hip. He was then started on IV vancomycin and rifampin. He was transferred to the general orthopedic floors. His hospital course was uneventful. He was started on aspirin for DVT prophylaxis. On postop day #1 his initial blood cultures were positive. His culture started to grow out group a beta strep. He was then transferred to the telemetry unit for monitoring of his heart. He was getting the IV antibiotics and the rifampin. His hip was feeling okay. On postop day #2 his hip was doing okay. He is a little bit sore. He was seen by infectious disease. They stopped the rifampin and started him on ceftriaxone. Repeat blood cultures were negative. On postop day #3 he was doing better. He was walking the hallways. The blood cultures were negative at 48 hours and a PICC line was placed. He was then discharged home on IV ceftriaxone. He will follow-up with orthopedics in 2 weeks. PG Care Time/CCT Total # of Minutes Spent Total Time Spent with Patient: Total time spent is greater than 50% in coordination of care (as documented) at patient's floor/unit and/or counseling patient: Discharge Plan Discharge Items Patient Disposition: Home - Home Health Services Reason For Visit: POST SURGICAL CARE Discharge Diagnosis: Left hip periprosthetic joint infection Condition on Discharge: Fair Activity: As commented below Non-emergency contact: Surgeon Call non-emergency contact if: your wound has increased redness and your wound has increased drainage Follow-up/Referrals: Mike Singh MD [Primary Care Provider] - Diet: Regular Addtl Attending Provider Instructions: Activity and Therapy Recommendations: Continue your regimen of physical therapy as before the hip infection. Medications: * Narcotic You will likely be sent home from the hospital with a prescription for the narcotic pain medication that worked best throughout your stay. * Aspirin Most patients will be required to take Aspirin 81mg twice a day for 6 weeks after surgery. This is obtained [id number] and a prescription is not necessary. * Take IV ceftriaxone as prescribed by infectious disease. * Resume previous home medications unless otherwise instructed TEDs/Elastic Stockings: The white elastic stockings help limit swelling and prevent blood clots from forming in your legs. The more you wear them, the more they work. Wear them for six weeks. Dressing Care: Leave the Silverlon dressing in place for 7 days. After 7 days you may remove the dressing. If the incision is not draining then you may leave the ricco open to air. If there is a little bit of drainage or if the ricco are getting stuck on your clothing then cover the incision with a dry dressing. The ricco will be removed at your 2 week follow-up appointment. Showering: Do not get the incision wet for 7 days from the date of recent surgery. After 7 days, you may shower normally with the shower water running over the ricco. Just pat it dry. Do not scrub or soak the incision. Things To Watch For: * Drainage from the incision site that occurs more than one week after your surgery. * Increased redness at the incision site. * Fever above 102 degrees Fahrenheit. * Unusual chest pain or shortness of breath. * Call [facility] at with any of the above problems Follow-Up Visit: Follow-up with Dr. Burgos's PA (Nayan Lion) 2-3 weeks after your day of surgery. He will remove your ricco and answer any questions. If you have any additional questions or concerns, Dr Burgos is usually in the office at the same time and will be available Please call the office to set up an appointment for a time that works for you. [phone] Pending Studies at Discharge: No Stand-Alone Forms: My [facility], Smoking Cessation Medications and DC Order Prescriptions: New ceftriaxone 2 gram recon soln 2 g IV DAILY Qty: 48 0RF Continued montelukast [Singulair] 10 mg tablet 10 mg PO HS benzonatate 100 mg capsule 100 mg PO BID trazodone 50 mg tablet 100 mg PO HS Daliresp 500 mcg tablet 500 mcg PO HS albuterol sulfate 0.63 mg/3 mL solution for nebulization 0.63 mg INH BID albuterol sulfate 90 mcg/actuation HFA aerosol inhaler 2 puffs INH Q4H PRN (Reason: Shortness Of Breath) (DME) Oxygen Home Liters Per Minute See Rx Instructions .ROUTE .MEDSUPPLY Qty: 1 Rx Instructions: As directed duloxetine [Cymbalta] 30 mg capsule,delayed release(DR/EC) 30 mg PO QAM Rx Instructions: w/ 60mg tab for 90mg total methylprednisolone 8 mg tablet 8 mg PO BID PRN (Reason: breathing flare up) lisinopril [Prinivil] 10 mg tablet 10 mg PO QAM gabapentin 600 mg tablet 600 mg PO TID Qty: 270 1RF methylprednisolone [Medrol (Sharath)] 4 mg tablets,dose pack 4 mg PO UD Qty: 21 0RF celecoxib 200 mg capsule 200 mg PO BID baclofen 10 mg tablet 10 mg PO TID atorvastatin 20 mg Tablet 20 mg PO QAM diltiazem HCl [Tiadylt ER] 360 mg Capsule,Extended Release 24 Hr 360 mg PO QAM omeprazole 40 mg Capsule,Delayed Release(Dr/Ec) 40 mg PO BID famotidine 20 mg Tablet 20 mg PO BID furosemide 20 mg Tablet 20 mg PO QAM metoprolol succinate 25 mg Tablet Extended Release 24 Hr 25 mg PO HS ibuprofen 600 mg Tablet 600 mg PO TID docusate sodium 100 mg Tablet 100 mg PO QID duloxetine [Cymbalta] 60 mg Capsule,Delayed Release(Dr/Ec) 60 mg PO QAM Rx Instructions: w/30mg tab for 90mg total diclofenac sodium 1 % Gel 2 g TOPICAL QID PRN (Reason: Pain) Corlanor 5 mg Tablet 5 mg PO BID Rx Instructions: must administer with a meal/food Trelegy Ellipta 200-62.5-25 mcg Blister With Device 1 inh INHALATION QAM aspirin 81 mg Tablet,Delayed Release (Dr/Ec) 81 mg PO BID 42 Days Qty: 0 0RF oxycodone-acetaminophen [Percocet] 10-325 mg tablet 1 tab PO UD PRN (Reason: Pain) Qty: 40 0RF Rx Instructions: 5 times daily Discharge Orders: Discharge Order (Routine); Ordered 12/29/22 Ordered By: Nayan Bennett/Other Patient Handouts: Controlling High Blood Pressure, ED Bacteremia, Suspected (Adult) Admission Data Admit Date/Time: 12/27/22 11:56 Attending Provider: Nayan Burgos Admit Provider: Nayan Burgos Primary Care Provider: Mike Singh Other Providers: Nayan Burgos ; Janelle Munoz ; Taco Kellogg ; Darlyn Cook ; Miguelina Alexander ; Afua Jean ; Janet Zeng ; Alicia Hargrove ; Hannah Rose ; Carmen Maynard ; Angus Fraga ; Ramy Mason Other Interventions: Discharge Summary Assessment (RN) Last Done: 12/29/22 16:36
== END 2022-12-29 17:21 | disposition home health service (06) | DRG 467 ==
LOC: ED 08:27 → 3W 12:22 → OR 12:22 → SUATTDRO 15:00 → 2N 12-27 11:55 → SUATTDRO 12-27 11:56 → 2N 12-28 21:40
PROC: M.IDHIP (2022-12-26 11:10)

== ENCOUNTER 2024-09-27 18:16 | Observation (INO) ==
[2024-09-27 19:04] LABS: Basophils # (auto) 0.05 K/uL (0.00-0.20); Basophils % (auto) 0.7 %; Eosinophils # (auto) 0.15 K/uL (0.00-0.50); Eosinophils % (auto) 2.2 %; Hematocrit (blood only) 42.5 % (42.0-52.0); Hemoglobin 13.7 g/dl (14.0-18.0); Immature Granulocytes # (auto) 0.07 K/uL (0.01-0.20); Lymphocytes # (auto) 2.02 K/uL (1.20-3.40); Lymphocytes % (auto) 29.4 %; Mean Corpuscular Hemoglobin 28.2 pg (25.0-34.0); Mean Corpuscular Hgb Conc 32.2 g/dL (32.0-36.0); Mean Corpuscular Volume 87.4 fL (80.0-100.0); Mean Platelet Volume 8.9 fL (9.4-12.4); Monocytes # (auto) 0.64 K/uL (0.11-0.59); Monocytes % (auto) 9.3 %; Neutrophils # (auto) 3.93 K/uL (1.40-6.50); Neutrophils % (auto) 57.4 %; Platelet Count 185 K/uL (130-400); RDW Coefficient of Variation 15.5 % (11.5-14.5); RDW Standard Deviation 49.1 fL (36.4-46.3); Red Blood Count 4.86 M/uL (4.70-6.10); White Blood Count 6.86 K/ul (4.8-10.8)
[2024-09-27 19:23] LABS: Alanine Aminotransferase 19 U/L (7-52); Albumin Globulin Ratio 1.4 (0.9-2); Albumin Level 3.6 gm/dl (3.4-5.0); Alkaline Phosphatase 84 U/L (34-104); Anion Gap 5 (3-11); Aspartate Aminotransferase 10 U/L (13-39); BUN Creatinine Ratio 8.6 (10-20); Bilirubin,Total 0.4 mg/dl (0.2-1.0); Blood Urea Nitrogen 8 mg/dl (6-23); Calcium 8.9 mg/dl (8.6-10.3); Carbon Dioxide 31 mmol/L (21-32); Chloride 104 mmol/L (98-107); Globulin 2.6 gm/dl (2.5-4.0); Glucose 152 mg/dl (70-99(Fasting)); Potassium 3.7 mmol/L (3.5-5.1); Sodium 140 mmol/L (136-145); Total Protein 6.2 gm/dl (6.0-8.3)
[2024-09-27 19:27] LABS: Troponin I High Sensitivity 5.8 pg/ml (0-20)
[2024-09-27 19:34] LABS: INR 0.9 (0.9-1.1); Partial Thromboplastin Ratio 0.9; Partial Thromboplastin Time 23 Seconds (21-31); Prothrombin Time 9.5 Seconds (9.0-12.0)
--- NOTE | 2024-09-27 20:17 | XRay Report ---
Exam(s): XR CXR 1 VIEW EXAM: XR Chest, 1 View CLINICAL HISTORY: Reason for exam: Chest pain, nonspecific. TECHNIQUE: Frontal view of the chest. COMPARISON: 10/12/2022 FINDINGS: Lungs: No consolidation. No overt edema. Pleural space: No pleural effusion. No pneumothorax. Heart: Unremarkable. No cardiomegaly. IMPRESSION: No acute cardiopulmonary abnormality. Electronically signed by: Jeffery Guzman MD 09/27/24 20:16 PM
--- NOTE | 2024-09-27 21:22 | Emergency Department Note ---
Impression & Plan Dyspnea, Chest pain, Hypoxia, Pneumonia ED Provider Note ED Provider Note NAME: LINDA PETERS AGE:54 SEX: Male : 1970 ARRIVES VIA: private vehicle INFORMANT: Patient ED PROVIDER(s): Carol Ferrari DO CHIEF COMPLAINT: Shortness of breath, chest pain, fatigue HPI: This is a 54-year-old male presents emergency department due to concern for 2 weeks of increased fatigue, shortness of breath, chest pain, and lightheadedness. Patient states 2 weeks ago he initially began with increased fatigue and weakness. He states he then noticed he was short of breath, more so with exertion. He states he then began having intermittent episodes of central left-sided chest pain that eventually also radiated into the left upper extremity. He also began having episodes of lightheadedness. Patient denies any recent fevers, chills, or URI symptoms. No known sick contact. No recent travel or leg swelling. No change in bowel or bladder function. No prior similar episodes. He states he did previously have a cardiac catheterization in 2018 which showed mild blockages but no stenting required. He has had prior pericarditis. He does follow with cardiology every 6 months. He did see his PCP and was placed on a heart monitor although the results of that are not yet known. Patient does wear oxygen 3 lpm chronically due to a history of COPD as patient was a former smoker. Patient does take pain medication chronically due to history of neck problems. PAST MEDICAL HISTORY:See Below PAST SURGICAL HISTORY:See Below FAMILY HISTORY:See Below SOCIAL HISTORY:See Below HOME MEDICATIONS:See Below ALLERGIES:See Below VITALS:See Below PHYSICAL EXAMINATION: GENERAL: alert, well appearing, well nourished, no distress, non-toxic EYE EXAM: normal conjunctiva, PERRL and EOM's grossly intact OROPHARYNX: no exudate, no erythema, lips, buccal mucosa, and tongue normal and mucous membranes are moist NECK: supple, no nuchal rigidity, no adenopathy, non-tender LUNGS: Clear but decreased to auscultation. Normal chest wall mechanics, no w/r/r HEART: no murmurs, S1 normal and S2 normal ABDOMEN: abdomen soft, non-tender, normo-active bowel sounds, no masses, no rebound or guarding. BACK: Back is symmetrical on inspection and there is no deformity, no midline tenderness, no CVA tenderness. SKIN: no rashes, petechiae, orbruising UPPER EXTREMITIES: upper extremities are grossly normal. FROM, nml pulses b/l. LOWER EXTREMITIES: No pitting edema. FROM, nml pulses b/l. NEURO EXAM: Normal sensorium, cranial nerves II-XII grossly intact, normal speech, no facial droop,nogross weakness of arms, no gross weakness of legs. Gross sensation intact. No ataxia. Vital Signs: reviewed and remarkable Differential Diagnosis: pneumonia, bronchitis, COPD/Asthma exacerbation, pneumothorax, pulmonary embolism, congestive heart failure, acute coronary syndrome, as well as others were considered MEDICAL DECISION MAKING: This is a 54-year-old male presents emergency department due to 2 weeks of worsening symptoms including increased fatigue, dyspnea on exertion, diaphoresis, and chest pain. Patient afebrile vital signs stable on arrival. Patient does wear oxygen chronically due to advanced COPD. Labs drawn and sent, IV established, EKG and chest ray performed at bedside interpreted me and patient monitored on telemetry. Nasal swab obtained and sent also and patient found to have positive viral URI. Due to concern for risk factors and pulmonary history, he was sent for CT of the chest additionally. CT revealed pneumonia which I feel more likely explains the patient's evolving symptoms over the last week. While these may have started as a viral phenomenon given the positive [employer], given his advanced COPD and now 2 weeks of symptoms, patient was started on IV doxycycline as a precaution. Due to concern for worsening hypoxia compared to baseline, underlying pulmonary pathology, and concern for cardiac risk factors additionally, case discussed with the hospitalist team for additional evaluation and management. Consultation(s): 235: Discussed with Dr. Rios, [facility] hospitalist team for additional evaluation and management. ER Treatment Provided: See below 2325: Ambulatory pulse while on his usual oxygen patient had increased wob and hypoxia. Diagnostics Interpreted By Me: -ECG: Normal sinus at 80, normal axis, normal intervals, no acute ST/T wave changes -Cardiac Monitoring: An order was placed for continuous cardiac monitoring. The monitor shows a rate of 90 with normal sinus rhythm. -Laboratory studies: As stated above and show below. -Imaging studies: X-ray Chest: A single view study of the chest was reviewed and was negative for cardiomegaly, focal infiltrate, effusion, pulmonary edema, or wide mediastinum. Triage Nursing Note Reviewed Prior/Outside Records Reviewed -cardiac cath from 2018 reviewed Past Med/Surg History Problem List (Updated 09/28/24 @ 22:14 by Carol Ferrari DO) Pneumonia (Acute) Hypoxia (Acute) Chest pain (Acute) Dyspnea (Acute) Lumbar radiculopathy Greater trochanteric bursitis of left hip Acute blood loss anemia Streptococcal bacteremia Hypertension CAD (coronary artery disease) Mild per 2018 cath per cardio records ([facility])) Abscess of left hip (Acute) Cellulitis (Acute) Leukocytosis (Acute) Status post hip surgery (Acute) Prosthetic hip infection (~12/2022) Status post left hip replacement (~10/2022) Encounter for pre-operative examination Carpal tunnel syndrome on both sides Drug allergy Sacroiliitis, not elsewhere classified Cervical facet syndrome Congenital stenosis of cervical spine Worst at C5-6 Cervical disc herniation Cervical radiculopathy Status post carpal tunnel release of both wrists Right shoulder pain Migraines History Depression Anxiety "Severe" GERD (gastroesophageal reflux disease) Well controlled and controlled Emphysema lung O2 at 3L continuous Follows Dr. Kinsey ([place]) COPD (chronic obstructive pulmonary disease) Follows with pulm Medical History Cataract History of pericarditis History of tachycardia Asthma Surgical History History of esophagogastroduodenoscopy (EGD) Hx of colonoscopy Hx of myringotomy History of cardiac cath Hx of external ear surgery Hx of hand surgery Hx of shoulder surgery History of radiofrequency ablation (RFA) of nerve of cervical spine S/P epidural steroid injection Family History Mother Heart disease Hypertension Grandmother (Paternal) Diabetes Grandfather (Paternal) Heart disease Grandfather (Maternal) Lung disease Social History Smoking Status: Current every day smoker Tobacco Type: Smokeless Tobacco (Dip or Chew) Second Hand Exposure: Yes; Do You Dip or Chew Tobacco: Yes; Hx Alcohol Use: No Hx Substance Use: No Preferred Language: Turkish Communication Ability: Effective Visual Impairment: No Limitations Hearing Ability: Normal Adhesion Tester Required: No Beliefs That Will Affect Care: None marital status: Current Living Situation: Spouse current occupational status: unemployed Feels Safe at Home: Yes Safety Concerns: Feels Safe At This Time Assistive Devices: Cane, Oxygen - Continuous and Walker Allergies Allergies Allergy/AdvReac Type Severity Reaction Status Date / Time prednisone Allergy rash Verified 09/28/24 00:39 Home Meds Home Medications Medication Instructions Recorded Confirmed Oxygen Home #1 ea 11/23/19 09/28/24 albuterol sulfate 0.63 mg/3 mL 0.63 mg inhalation TID PRN 11/23/19 09/28/24 solution for nebulization Shortness Of Breath Or Wheezing albuterol sulfate 90 mcg/actuation 2 puffs inhalation Q4H PRN 11/23/19 09/28/24 aerosol inhaler Shortness Of Breath montelukast 10 mg tablet 10 mg PO HS 11/23/19 09/28/24 (Singulair) roflumilast 500 mcg tablet 500 mcg PO HS 11/23/19 09/28/24 (Daliresp) trazodone 50 mg tablet 100 mg PO HS 11/23/19 09/28/24 duloxetine 30 mg capsule,delayed 30 mg PO QAM 05/15/20 09/28/24 release (Cymbalta) methylprednisolone 8 mg tablet 8 mg PO BID PRN breathing flare up 05/15/20 09/28/24 atorvastatin 20 mg tablet 20 mg PO QAM 10/04/22 09/28/24 diltiazem HCl 360 mg capsule,24 360 mg PO QAM 10/04/22 09/28/24 hr,extended release (Tiadylt ER) docusate sodium 100 mg tablet 100 mg PO TID 10/04/22 09/28/24 duloxetine 60 mg capsule,delayed 60 mg PO QAM 10/04/22 09/28/24 release (Cymbalta) famotidine 20 mg tablet 20 mg PO AMHS 10/04/22 09/28/24 fluticasone fur. 200 mcg-umeclid 2 inh inhalation QAM 10/04/22 09/28/24 62.5 mcg-vilant 25 mcg inhalat.powder (Trelegy Ellipta) furosemide 20 mg tablet 40 mg PO QAM 10/04/22 09/28/24 ivabradine 5 mg tablet (Corlanor) 5 mg PO BID 10/04/22 09/28/24 omeprazole 40 mg capsule,delayed 40 mg PO AMHS 10/04/22 09/28/24 release lisinopril 10 mg tablet 10 mg PO QAM 09/28/24 09/28/24 morphine 15 mg immediate release 15 mg PO TID 09/28/24 09/28/24 tablet morphine 15 mg tablet,extended 15 mg PO AMHS 09/28/24 09/28/24 release propranolol 60 mg capsule,24 60 mg PO QA 09/28/24 09/28/24 hr,extended release tamsulosin 0.4 mg capsule 0.4 mg PO QA 09/28/24 09/28/24 tizanidine 2 mg tablet 2 mg PO TID 09/28/24 09/28/24 Previous Rx's Medication Instructions Recorded gabapentin 600 mg tablet 600 mg PO TID #270 tabs 12/31/21 3-in-1 Commode #1 ea 12/31/22 3-in-1 Commode #1 ea 12/31/22 cefpodoxime 200 mg tablet 200 mg PO BID #8 tabs 09/28/24 doxycycline monohydrate 100 mg 100 mg PO BID #8 caps 09/28/24 capsule methylprednisolone 4 mg tablet 4 mg PO DAILY #21 tabs 09/28/24 (Medrol) Results & Data (ED) Vital Signs Vital Signs - 24 hr 09/27/24 22:12 09/27/24 22:30 09/27/24 23:15 Pulse Rate 69 70 73 Pulse Rate [Exercises] Pulse Rate from SpO2 Sensor 70 70 74 Respiratory Rate 15 16 24 Respiratory Rate [Exercises] Blood Pressure 134/62 Blood Pressure Mean 86 Pulse Oximetry 100 100 98 Pulse Oximetry [Exercises] Oxygen Delivery Method Oxygen Flow Rate 09/27/24 23:23 09/28/24 00:00 09/28/24 00:27 Pulse Rate 69 72 Pulse Rate [Exercises] 88 Pulse Rate from SpO2 Sensor Respiratory Rate 18 Respiratory Rate [Exercises] 22 Blood Pressure 132/78 Blood Pressure Mean 86 Pulse Oximetry 99 Pulse Oximetry [Exercises] 88 L Oxygen Delivery Method Nasal Cannula Oxygen Flow Rate 3 09/28/24 01:00 Pulse Rate 68 Pulse Rate [Exercises] Pulse Rate from SpO2 Sensor 68 Respiratory Rate 15 Respiratory Rate [Exercises] Blood Pressure 122/88 Blood Pressure Mean 99 Pulse Oximetry 100 Pulse Oximetry [Exercises] Oxygen Delivery Method Nasal Cannula Oxygen Flow Rate 3 Laboratory Data 09/28/24 03:50 09/28/24 03:50 Lab Results 09/27/24 09/27/24 09/27/24 Range/Units 18:40 20:47 20:50 WBC 6.86 (4.8-10.8) K/ul RBC 4.86 (4.70-6.10) M/uL Hgb 13.7 L (14.0-18.0) g/dl Hct 42.5 (42.0-52.0) % MCV 87.4 (80.0-100.0) fL MCH 28.2 (25.0-34.0) pg MCHC 32.2 (32.0-36.0) g/dL RDW Std Deviation 49.1 H (36.4-46.3) fL RDW Coeff of Olivia 15.5 H (11.5-14.5) % Plt Count 185 (130-400) K/uL MPV 8.9 L (9.4-12.4) fL Immature Gran % (Auto) 1.0 % Neut % (Auto) 57.4 % Lymph % (Auto) 29.4 % Kinney % (Auto) 9.3 % Eos % (Auto) 2.2 % Baso % (Auto) 0.7 % Neut # (Auto) 3.93 (1.40-6.50) K/uL Lymph # (Auto) 2.02 (1.20-3.40) K/uL Kinney # (Auto) 0.64 H (0.11-0.59) K/uL Eos # (Auto) 0.15 (0.00-0.50) K/uL Baso # (Auto) 0.05 (0.00-0.20) K/uL Immature Gran # (Auto) 0.07 (0.01-0.20) K/uL PT 9.5 (9.0-12.0) Seconds INR 0.9 (0.9-1.1) APTT 23 (21-31) Seconds PTT Ratio 0.9 Sodium 140 (136-145) mmol/L Potassium 3.7 (3.5-5.1) mmol/L Chloride 104 (98-107) mmol/L Carbon Dioxide 31 (21-32) mmol/L Anion Gap 5 (3-11) BUN 8 (6-23) mg/dl Creatinine 0.93 (0.6-1.4) mg/dl Est Cr Clr Drug Dosing Not Reportable eGFR 98.18 BUN/Creatinine Ratio 8.6 L (10-20) Glucose 152 H (70-99(Fasting)) mg/dl Calcium 8.9 (8.6-10.3) mg/dl Total Bilirubin 0.4 (0.2-1.0) mg/dl AST 10 L (13-39) U/L ALT 19 (7-52) U/L Alkaline Phosphatase 84 (34-104) U/L Troponin I High Sens 5.8 (0-20) pg/ml B-Natriuretic Peptide 99 (0-100) pg/ml Total Protein 6.2 (6.0-8.3) gm/dl Albumin 3.6 (3.4-5.0) gm/dl Globulin 2.6 (2.5-4.0) gm/dl Albumin/Globulin Ratio 1.4 (0.9-2) Adenovirus (PCR) Not Detected (NotDetected) B. pertussis DNA (PCR) Not Detected (NotDetected) B.parapertussis DNA PCR Not Detected (NotDetected) C. pneumoniae DNA (PCR) Not Detected (NotDetected) Coronavirus OC43 (PCR) Not Detected (NotDetected) Coronavirus HKU1 (PCR) Not Detected (NotDetected) Coronavirus 229E (PCR) Not Detected (NotDetected) SARS-CoV-2 (PCR) Not Detected (NotDetected) Coronavirus NL63 (PCR) DETECTED A (NotDetected) Human Metapneumovir PCR Not Detected (NotDetected) Influenza Type A (PCR) Not Detected (NotDetected) Influenza Type B (PCR) Not Detected (NotDetected) M. pneumoniae (PCR) Not Detected (NotDetected) Parainfluenza 1 (PCR) Not Detected (NotDetected) Parainfluenza 2 (PCR) Not Detected (NotDetected) Parainfluenza 3 (PCR) Not Detected (NotDetected) Parainfluenza 4 (PCR) Not Detected (NotDetected) RSV (PCR) Not Detected (NotDetected) Entero/Rhino (PCR) DETECTED A (NotDetected) Administered Medications Atorvastatin Calcium ([facility]atin 20 Mg Tab) [facility] [place] [facility] Stop: 10/28/24 08:59 Last Admin: 09/28/24 08:16 Dose: 20 mg Documented By: DIONNA Diltiazem HCl (Diltiazem Hcl 180 Mg Capcr) [address] [facility] Stop: 10/28/24 08:59 Last Admin: 09/28/24 08:15 Dose: 360 mg Documented By: DIONNA Docusate Sodium (Docusate Sodium 100 Mg Cap) 100 mg PO TID [facility] Stop: 10/28/24 08:59 Last Admin: 09/28/24 14:09 Dose: Not Given Documented By: Admin: 09/28/24 08:13 Dose: 100 mg Documented By: DIONNA Duloxetine HCl (Duloxetine Hcl 30 Mg Cap) [address] [facility] Stop: 10/28/24 08:59 Last Admin: 09/28/24 08:16 Dose: 30 mg Documented By: DIONNA Duloxetine HCl (Duloxetine Hcl 60 Mg Cap) [address] [facility] Stop: 10/28/24 08:59 Last Admin: 09/28/24 08:17 Dose: 60 mg Documented By: DIONNA Enoxaparin Sodium (Enoxaparin Inj 40 Mg/0.4 Ml Syr) [address] [facility] Stop: 10/28/24 08:59 Last Admin: 09/28/24 08:23 Dose: Not Given Documented By: DIONNA Famotidine (Famotidine 20 Mg Tab) 20 mg PO BID [facility] Stop: 10/28/24 08:59 Last Admin: 09/28/24 08:16 Dose: 20 mg Documented By: DIONNA Fluticasone Furoate (Fluticasone Furoate 200mcg 14 Puffs/Inhaler) [address] [facility] Stop: 10/28/24 08:59 Last Admin: 09/28/24 08:14 Dose: 1 puffs Documented By: DIONNA Furosemide (Furosemide 40 Mg Tab) [address] [facility] Stop: 10/28/24 08:59 Last Admin: 09/28/24 08:15 Dose: 40 mg Documented By: DIONNA Gabapentin (Gabapentin 600 Mg Tab) 600 mg PO TID [facility] Stop: 10/28/24 08:59 Last Admin: 09/28/24 14:09 Dose: 600 mg Documented By: Admin: 09/28/24 08:15 Dose: 600 mg Documented By: DIONNA Ceftriaxone Sodium (Rocephin) 2,000 mg in 50 mls @ 100 mls/hr IV Q24H [facility] Stop: 10/03/24 03:59 Last Infusion: 09/28/24 05:25 Dose: Infused Documented By: Admin: 09/28/24 04:38 Dose: 100 mls/hr Documented By: ADELA Methylprednisolone 40 mg/ (Syringe) 0.64 mls @ 1.5 mls/min IV QAM [facility] Stop: 10/28/24 08:59 Last Admin: 09/28/24 09:23 Dose: 1.5 mls/min Documented By: DIONNA Lisinopril (Lisinopril 10 Mg Tab) 10 mg PO QAM [facility] Stop: 10/28/24 08:59 Last Admin: 09/28/24 08:15 Dose: 10 mg Documented By: DIONNA Miscellaneous (Ivabradine [Corlanor] 5 Mg - Order Awaiting Action) 1 each N/A QS [facility] Stop: 10/28/24 07:59 Last Admin: 09/28/24 14:09 Dose: Not Given Documented By: Admin: 09/28/24 08:22 Dose: Not Given Documented By: DIONNA Morphine Sulfate (Morphine Sulfate Cr 15 Mg Tabcr) 15 mg PO BID [facility] Stop: 10/12/24 08:59 Last Admin: 09/28/24 08:35 Dose: 15 mg Documented By: DIONNA Morphine Sulfate (Morphine Sulfate Ir 15 Mg Tab (Immediate Release)) 15 mg PO TID PRN PRN Reason: Pain Stop: 10/12/24 05:32 Last Admin: 09/28/24 11:56 Dose: 15 mg Documented By: Admin: 09/28/24 05:44 Dose: 15 mg Documented By: ADELA Pantoprazole Sodium (Pantoprazole 40 Mg Tab) 40 mg PO BID [facility] Stop: 10/28/24 08:59 Last Admin: 09/28/24 08:15 Dose: 40 mg Documented By: DIONNA Propranolol HCl (Propranolol Hcl 60 Mg [place]) 60 mg PO QAM [facility] Stop: 10/28/24 08:59 Last Admin: 09/28/24 08:16 Dose: 60 mg Documented By: DIONNA Tamsulosin HCl (Tamsulosin Hcl 0.4 Mg Cap) 0.[address] [facility] Stop: 10/28/24 08:59 Last Admin: 09/28/24 08:15 Dose: 0.4 mg Documented By: DIONNA Tizanidine HCl (Tizanidine Hcl 4 Mg Tablet) 2 mg PO TID [facility] Stop: 10/28/24 08:59 Last Admin: 09/28/24 14:09 Dose: 2 mg Documented By: Admin: 09/28/24 08:15 Dose: 2 mg Documented By: DIONNA Umeclidinium/Vilanterol (Umeclidinium/Vilanterol 62.5/25mcg 7 Puffs/Inhaler) [address] [facility] Stop: 10/28/24 08:59 Last Admin: 09/28/24 08:14 Dose: 1 puffs Documented By: DIONNA Discontinued Medications Albuterol (Albut/Ipratrop 3mg/0.5mg Neb 3 Ml Vial) 3 ml NEB NOW STA; Protocol Stop: 09/27/24 23:44 Last Admin: 09/28/24 01:13 Dose: 3 ml Documented By: ADELA Doxycycline Hyclate 100 mg/ (Dextrose) 100 mls @ 50 mls/hr IV NOW STA Stop: 09/28/24 02:09 Last Infusion: 09/28/24 03:15 Dose: Infused Documented By: Admin: 09/28/24 01:14 Dose: 50 mls/hr Documented By: ADELA Ioversol (Optiray 320 125ml) 117 ml IV ONCE ONE Stop: 09/27/24 22:39 Last Admin: 09/27/24 22:39 Dose: 117 ml Documented By: TL Methylprednisolone (Methylprednisolone 125 Mg/2 Ml Vial) 60 mg IV NOW STA Stop: 09/27/24 23:44 Last Admin: 09/28/24 01:14 Dose: 60 mg Documented By: ADELA Imaging Data Radiologist's Impression: Chest X-Ray 09/27/24 18:35 Exam(s): XR CXR 1 VIEW EXAM: XR Chest, 1 View CLINICAL HISTORY: Reason for exam: Chest pain, nonspecific. TECHNIQUE: Frontal view of the chest. COMPARISON: 10/12/2022 FINDINGS: Lungs: No consolidation. No overt edema. Pleural space: No pleural effusion. No pneumothorax. Heart: Unremarkable. No cardiomegaly. IMPRESSION: No acute cardiopulmonary abnormality. Electronically signed by: Jeffery Guzman MD 09/27/24 20:16 PM Chest CTA 09/27/24 21:37 Exam(s): CTA CHEST IV Amt: 117 ml optiray EXAM: CT Angiography Chest With Intravenous Contrast CLINICAL HISTORY: Reason for exam: PE. TECHNIQUE: Axial computed tomographic angiography images of the chest with intravenous contrast. CTDI is 28.01 mGy and DLP is 969.29 mGy-cm. Automated exposure control was utilized for the study. A dose lowering technique was utilized adhering to the principles of ALARA. MIP reconstructed images were created and reviewed. COMPARISON: No relevant prior studies available. FINDINGS: Pulmonary arteries: No pulmonary embolism. Aorta: No acute findings. Normal caliber. No dissection. Lungs: Airspace opacities within the lower lobes right greater than left. Moderate emphysematous changes. Pleural space: No pleural effusion. No pneumothorax. Heart: Unremarkable. Bones/joints: No acute fracture. Soft tissues: Unremarkable. Lymph nodes: Unremarkable. IMPRESSION: 1. No pulmonary embolism. 2. Airspace opacities within the lower lobes right greater than left. Consistent with pneumonia. 3. Moderate emphysematous changes. Electronically signed by: Jeffery Guzman MD 09/27/24 23:47 PM Discharge Plan Visit Data Chief Complaint: Cardiac Assessment Stated Complaint: SOB, LIGHTHEADED, CHEST PAIN, LEFT ARM PAIN ED Provider: Carol Ferrari Discharge Problem: Dyspnea, Chest pain, Hypoxia, Pneumonia Patient Disposition: Admitted As Inpatient Discharge Instructions Interventions: ED Discharge Assessment Last Done: 09/28/24 02:02
[2024-09-27 21:48] LABS: Adenovirus PCR Not Detected (NotDetected); Bordetella parapertussis PCR Not Detected (NotDetected); Bordetella pertussis PCR Not Detected (NotDetected); Chlamydia pneumoniae PCR Not Detected (NotDetected); Coronavirus 229E PCR Not Detected (NotDetected); Coronavirus CoV-2 (COVID19)PCR Not Detected (NotDetected); Coronavirus HKU1 PCR Not Detected (NotDetected); Coronavirus NL63 PCR DETECTED (NotDetected); Coronavirus OC43PCR Not Detected (NotDetected); Human Metapneumovirus PCR Not Detected (NotDetected); Influenza A PCR Not Detected (NotDetected); Influenza B PCR Not Detected (NotDetected); Mycoplasma pneumoniae PCR Not Detected (NotDetected); Parainfluenza Virus 1 PCR Not Detected (NotDetected); Parainfluenza Virus 2 PCR Not Detected (NotDetected); Parainfluenza Virus 3 PCR Not Detected (NotDetected); Parainfluenza Virus 4 PCR Not Detected (NotDetected); Respiratory Syncytial VirusPCR Not Detected (NotDetected); Rhinovirus/Enterovirus PCR DETECTED (NotDetected)
[2024-09-27] MEDS: OPTIRAY 320 125ml IV ONE (22:39)
--- NOTE | 2024-09-27 23:48 | CT Scan Report ---
Exam(s): CTA CHEST IV Amt: 117 ml optiray EXAM: CT Angiography Chest With Intravenous Contrast CLINICAL HISTORY: Reason for exam: PE. TECHNIQUE: Axial computed tomographic angiography images of the chest with intravenous contrast. CTDI is 28.01 mGy and DLP is 969.29 mGy-cm. Automated exposure control was utilized for the study. A dose lowering technique was utilized adhering to the principles of ALARA. MIP reconstructed images were created and reviewed. COMPARISON: No relevant prior studies available. FINDINGS: Pulmonary arteries: No pulmonary embolism. Aorta: No acute findings. Normal caliber. No dissection. Lungs: Airspace opacities within the lower lobes right greater than left. Moderate emphysematous changes. Pleural space: No pleural effusion. No pneumothorax. Heart: Unremarkable. Bones/joints: No acute fracture. Soft tissues: Unremarkable. Lymph nodes: Unremarkable. IMPRESSION: 1. No pulmonary embolism. 2. Airspace opacities within the lower lobes right greater than left. Consistent with pneumonia. 3. Moderate emphysematous changes. Electronically signed by: Jeffery Guzman MD 09/27/24 23:47 PM
--- NOTE | 2024-09-27 23:59 | History & Physical Report ---
Date of Service September 27, 2024 Assessment & Plan (1) Hypoxia: (2) Chest pain: Plan Entero/rhinovirus and Coronavirus NL63 | COPD, Emphysema -Baseline O2 requirement 2L, currently 97% on 3L NC. Wean as able -Received 60mg IV methylprednisolone in ED, will continue 40mg IV methylprednisolone in a.m. -Continue home inhalers, Duonebs PRN -CTA showed lower airspace opacities R>L, started on doxycycline in ED, will add Ceftriaxone -Repeat CBC, CMP in a.m. * Patient is very motivated to be discharged by Tuesday morning in order to attend a family event out of town Orthopnea -New symptom over past few weeks. No chest pain at present. Negative trop on admission -Follows with Dr. Zuniga -Patient reports no prior diagnosis of CHF -BNP 99 in ED -Will obtain echocardiogram in a.m. Chronic Pain- Neck and Back -Continue outpatient regimen for pain management including Morphine, Tizanidine, Duloxetine, Gabapentin -Continue home bowel regimen to prevent opioid induced constipation CAD | HTN -Continue statin -Continue diltiazem, metoprolol, lisinopril, Lasix Admit to: med/tele VTE Prophylaxis: Lovenox Diet: Heart healthy Code Status: Full Code History of Present Illness Primary Care Provider: Mike Singh MD Tank Porter is a 54 year-old male with medical history significant for COPD, GERD, anxiety/depression, CAD, HTN, s/p L total hip arthroplasty. Patient presented to the ED due to several weeks of progressive SOB and weakness. Patient reports that he went to his PCP twice and had lab work done and then an EKG which was normal but told to come to the ED for cardiac evaluation. Patient reports a history of pericarditis 10+ years ago, denies ever being diagnosed with CHF. Patient has emphysema and COPD, baseline O2 requirement is 2L but states he has been increasing it to 3L the past few weeks due to dyspnea. Endorses increased SOB when laying flat and has to prop himself up with more pillows lately to sleep. Endorses some increase LE swelling. Patient reports that prior hospitalization with multiple changes in room assignment made him very anxious, hopes to avoid this time. ED Course: -CTA chest, CXR -CBC, CMP, troponin Allergies Allergy/AdvReac Type Severity Reaction Status Date / Time prednisone Allergy rash Verified 09/28/24 00:39 Home Medications Medication Instructions Recorded Confirmed Type Oxygen Home #1 ea 11/23/19 09/28/24 History albuterol sulfate 0.63 mg/3 mL 0.63 mg inhalation TID PRN 11/23/19 09/28/24 History solution for nebulization Shortness Of Breath Or Wheezing albuterol sulfate 90 mcg/actuation 2 puffs inhalation Q4H PRN 11/23/19 09/28/24 History aerosol inhaler Shortness Of Breath montelukast 10 mg tablet 10 mg PO HS 11/23/19 09/28/24 History (Singulair) roflumilast 500 mcg tablet 500 mcg PO HS 11/23/19 09/28/24 History (Daliresp) trazodone 50 mg tablet 100 mg PO HS 11/23/19 09/28/24 History duloxetine 30 mg capsule,delayed 30 mg PO QAM 05/15/20 09/28/24 History release (Cymbalta) methylprednisolone 8 mg tablet 8 mg PO BID PRN breathing flare up 05/15/20 09/28/24 History gabapentin 600 mg tablet 600 mg PO TID #270 tabs 12/31/21 09/28/24 Rx atorvastatin 20 mg tablet 20 mg PO QAM 10/04/22 09/28/24 History diltiazem HCl 360 mg capsule,24 360 mg PO QAM 10/04/22 09/28/24 History hr,extended release (Tiadylt ER) docusate sodium 100 mg tablet 100 mg PO TID 10/04/22 09/28/24 History duloxetine 60 mg capsule,delayed 60 mg PO QAM 10/04/22 09/28/24 History release (Cymbalta) famotidine 20 mg tablet 20 mg PO AMHS 10/04/22 09/28/24 History fluticasone fur. 200 mcg-umeclid 2 inh inhalation QA 10/04/22 09/28/24 History 62.5 mcg-vilant 25 mcg inhalat.powder (Trelegy Ellipta) furosemide 20 mg tablet 40 mg PO QAM 10/04/22 09/28/24 History ivabradine 5 mg tablet (Corlanor) 5 mg PO BID 10/04/22 09/28/24 History omeprazole 40 mg capsule,delayed 40 mg PO AMHS 10/04/22 09/28/24 History release 3-in-1 Commode #1 ea 12/31/22 09/28/24 Rx 3-in-1 Commode #1 ea 12/31/22 09/28/24 Rx lisinopril 10 mg tablet 10 mg PO QAM 09/28/24 09/28/24 History morphine 15 mg immediate release 15 mg PO TID 09/28/24 09/28/24 History tablet morphine 15 mg tablet,extended 15 mg PO AMHS 09/28/24 09/28/24 History release propranolol 60 mg capsule,24 60 mg PO QAM 09/28/24 09/28/24 History hr,extended release tamsulosin 0.4 mg capsule 0.4 mg PO QAM 09/28/24 09/28/24 History tizanidine 2 mg tablet 2 mg PO TID 09/28/24 09/28/24 History Past Med/Surg History Problem List (Updated 09/27/24 @ 23:28 by Carol Ferrari DO) Hypoxia (Acute) Chest pain (Acute) Dyspnea (Acute) Lumbar radiculopathy Greater trochanteric bursitis of left hip Acute blood loss anemia Streptococcal bacteremia Hypertension CAD (coronary artery disease) Mild per 2018 cath per cardio records ([facility])) Abscess of left hip (Acute) Cellulitis (Acute) Leukocytosis (Acute) Status post hip surgery (Acute) Prosthetic hip infection (~12/2022) Status post left hip replacement (~10/2022) Encounter for pre-operative examination Carpal tunnel syndrome on both sides Drug allergy Sacroiliitis, not elsewhere classified Cervical facet syndrome Congenital stenosis of cervical spine Worst at C5-6 Cervical disc herniation Cervical radiculopathy Status post carpal tunnel release of both wrists Right shoulder pain Migraines History Depression Anxiety "Severe" GERD (gastroesophageal reflux disease) Well controlled and controlled Emphysema lung O2 at 3L continuous Follows Dr. Kinsey ([place]) COPD (chronic obstructive pulmonary disease) Follows with pulm Medical History Cataract History of pericarditis History of tachycardia Asthma Surgical History History of esophagogastroduodenoscopy (EGD) Hx of colonoscopy Hx of myringotomy History of cardiac cath Hx of external ear surgery Hx of hand surgery Hx of shoulder surgery History of radiofrequency ablation (RFA) of nerve of cervical spine S/P epidural steroid injection Family History Mother Heart disease Hypertension Grandmother (Paternal) Diabetes Grandfather (Paternal) Heart disease Grandfather (Maternal) Lung disease Social History Smoking Status: Current every day smoker Tobacco Type: Smokeless Tobacco (Dip or Chew) Second Hand Exposure: Yes; Do You Dip or Chew Tobacco: Yes; Hx Alcohol Use: No Hx Substance Use: No Preferred Language: Fijian Communication Ability: Effective Visual Impairment: No Limitations Hearing Ability: Normal Furniture Manager Required: No Beliefs That Will Affect Care: None marital status: Current Living Situation: Spouse current occupational status: unemployed Feels Safe at Home: Yes Safety Concerns: Feels Safe At This Time Assistive Devices: Cane, Oxygen - Continuous and Walker Review of Systems Review of Systems: As per above Physical Exam Constitutional: WD/WN, vitals as above Eyes: + anicteric sclerae; no conjunctival abn ormality ENMT: Ears: no external ear abnormality Nose: no external nose abnormality Moist mucous membranes Respiratory: normal respiratory effort; no respiratory distress Auscultation: + diminished lung sounds Few wheezes Cardiovascular: Rate/Rhythm: regular rate and regular rhythm +1 nonpitting edema of lower extremities Gastrointestinal (Abdomen): Inspection/Auscultation: abdomen normal to inspection Percussion/Palpation: abdomen soft; abdomen nontender and no guarding Musculoskeletal: Moves all limbs independently Skin: no rashes, warm and dry Psychiatric: A+Ox3, euthymic affect Results & Data Results & Data Vital Signs (Past 12 Hours) Vital Signs Temp Pulse Pulse Resp Resp BP BP 09/27/24 23:23 88 22 09/27/24 23:15 73 24 134/62 09/27/24 22:30 70 16 09/27/24 22:12 69 15 09/27/24 22:00 133/81 09/27/24 22:00 133/81 09/27/24 21:00 127/68 09/27/24 21:00 127/68 09/27/24 21:00 127/68 09/27/24 20:56 67 22 09/27/24 20:32 62 14 09/27/24 20:08 68 16 09/27/24 20:07 70 09/27/24 19:58 70 26 H 09/27/24 19:45 134/72 09/27/24 18:31 36.8 C 83 22 118/44 L 09/27/24 18:31 Pulse Ox Pulse Ox O2 Del Method O2 Flow Rate 09/27/24 23:23 88 L Nasal Cannula 3 09/27/24 23:15 98 09/27/24 22:30 100 09/27/24 22:12 100 09/27/24 22:00 09/27/24 22:00 09/27/24 21:00 09/27/24 21:00 09/27/24 21:00 09/27/24 20:56 100 09/27/24 20:32 100 09/27/24 20:08 100 09/27/24 20:07 09/27/24 19:58 100 Nasal Cannula 3 09/27/24 19:45 09/27/24 18:31 98 Room Air 09/27/24 18:31 Nasal Cannula 3 Diagnostic Findings Chest X-Ray 09/27/24 18:35 Exam(s): XR CXR 1 VIEW EXAM: XR Chest, 1 View CLINICAL HISTORY: Reason for exam: Chest pain, nonspecific. TECHNIQUE: Frontal view of the chest. COMPARISON: 10/12/2022 FINDINGS: Lungs: No consolidation. No overt edema. Pleural space: No pleural effusion. No pneumothorax. Heart: Unremarkable. No cardiomegaly. IMPRESSION: No acute cardiopulmonary abnormality. Electronically signed by: Jeffery Guzman MD 09/27/24 20:16 PM Chest CTA 09/27/24 21:37 Exam(s): CTA CHEST IV Amt: 117 ml optiray EXAM: CT Angiography Chest With Intravenous Contrast CLINICAL HISTORY: Reason for exam: PE. TECHNIQUE: Axial computed tomographic angiography images of the chest with intravenous contrast. CTDI is 28.01 mGy and DLP is 969.29 mGy-cm. Automated exposure control was utilized for the study. A dose lowering technique was utilized adhering to the principles of ALARA. MIP reconstructed images were created and reviewed. COMPARISON: No relevant prior studies available. FINDINGS: Pulmonary arteries: No pulmonary embolism. Aorta: No acute findings. Normal caliber. No dissection. Lungs: Airspace opacities within the lower lobes right greater than left. Moderate emphysematous changes. Pleural space: No pleural effusion. No pneumothorax. Heart: Unremarkable. Bones/joints: No acute fracture. Soft tissues: Unremarkable. Lymph nodes: Unremarkable. IMPRESSION: 1. No pulmonary embolism. 2. Airspace opacities within the lower lobes right greater than left. Consistent with pneumonia. 3. Moderate emphysematous changes. Electronically signed by: Jeffery Guzman MD 09/27/24 23:47 PM Resident Activity Tracking Resident Involvement: Resident Care Provided Care Provided: Adult Hospital Medicine
[2024-09-28] MEDS: ALBUT/IPRATROP 3MG/0.5MG NEB 3 ML VIAL NEB STA (01:13)
[2024-09-28] MEDS: DOXYCYCLINE HYCLATE 100 MG in DEXTROSE 5% MINI-B 100 ML IV STA (01:14)
[2024-09-28] MEDS: methylPREDNISolone 125 MG/2 ML VIAL IV STA (01:14)
[2024-09-28] MEDS ORDERED: ALUMINUM/MAGNESIUM SUSP 30 ML UDC PO PRN (02:02)
[2024-09-28] MEDS ORDERED: ALBUTEROL HFA 8 GM INHALER INH PRN (02:02)
[2024-09-28] MEDS ORDERED: ACETAMINOPHEN 325 MG TAB PO PRN (02:02)
[2024-09-28] MEDS ORDERED: POLYETHYLENE (MIRALAX) 17 GM PACK PO PRN (02:02)
[2024-09-28] MEDS ORDERED: ALBUT/IPRATROP 3MG/0.5MG NEB 3 ML VIAL NEB PRN (02:02)
[2024-09-28] MEDS ORDERED: ONDANSETRON INJ 2 MG/ML 2 ML VIAL IV PRN (02:02)
[2024-09-28 04:03] LABS: Basophils # (auto) 0.04 K/uL (0.00-0.20); Basophils % (auto) 0.6 %; Eosinophils % (auto) 1.5 %; Hematocrit (blood only) 40.4 % (42.0-52.0); Hemoglobin 13.2 g/dl (14.0-18.0); Immature Granulocytes # (auto) 0.07 K/uL (0.01-0.20); Lymphocytes # (auto) 1.08 K/uL (1.20-3.40); Lymphocytes % (auto) 15.8 %; Mean Corpuscular Hemoglobin 28.6 pg (25.0-34.0); Mean Corpuscular Hgb Conc 32.7 g/dL (32.0-36.0); Mean Corpuscular Volume 87.4 fL (80.0-100.0); Mean Platelet Volume 8.8 fL (9.4-12.4); Monocytes # (auto) 0.31 K/uL (0.11-0.59); Monocytes % (auto) 4.5 %; Neutrophils # (auto) 5.22 K/uL (1.40-6.50); Neutrophils % (auto) 76.6 %; Platelet Count 182 K/uL (130-400); RDW Coefficient of Variation 15.3 % (11.5-14.5); RDW Standard Deviation 49.1 fL (36.4-46.3); Red Blood Count 4.62 M/uL (4.70-6.10); White Blood Count 6.82 K/ul (4.8-10.8)
[2024-09-28 04:21] LABS: Alanine Aminotransferase 18 U/L (7-52); Albumin Globulin Ratio 1.5 (0.9-2); Albumin Level 3.5 gm/dl (3.4-5.0); Alkaline Phosphatase 82 U/L (34-104); Anion Gap 6 (3-11); Aspartate Aminotransferase 11 U/L (13-39); BUN Creatinine Ratio 9.4 (10-20); Bilirubin,Total 0.4 mg/dl (0.2-1.0); Blood Urea Nitrogen 8 mg/dl (6-23); Calcium 8.7 mg/dl (8.6-10.3); Carbon Dioxide 29 mmol/L (21-32); Chloride 105 mmol/L (98-107); Globulin 2.4 gm/dl (2.5-4.0); Glucose 113 mg/dl (70-99(Fasting)); Sodium 140 mmol/L (136-145); Total Protein 5.9 gm/dl (6.0-8.3)
[2024-09-28] MEDS: cefTRIAXone SODIUM 2,000 MG/50 ML BAG IV SCH (04:38)
[2024-09-28] MEDS: MoRPHine SULFATE IR 15 MG TAB (IMMEDIATE RELEASE) PO PRN (05:44)
[2024-09-28] MEDS: DOCUSATE SODIUM 100 MG CAP PO SCH (08:13)
[2024-09-28] MEDS: UMECLIDINIUM/VILANTEROL 62.5/25MCG 7 PUFFS/INHALER INH SCH (08:14)
[2024-09-28] MEDS: FLUTICASONE FUROATE 200MCG 14 PUFFS/INHALER INH SCH (08:14)
[2024-09-28] MEDS: lisinopril 10 MG TAB PO SCH (08:15)
[2024-09-28] MEDS: tiZANidine HCL 4 MG TABLET PO SCH (08:15)
[2024-09-28] MEDS: dilTIAZem HCL 180 MG CAPCR PO SCH (08:15)
[2024-09-28] MEDS: PANTOprazole 40 MG TAB PO SCH (08:15)
[2024-09-28] MEDS: TAMSULOSIN HCL 0.4 MG CAP PO SCH (08:15)
[2024-09-28] MEDS: FUROSEMIDE 40 MG TAB PO SCH (08:15)
[2024-09-28] MEDS: GABAPENTIN 600 MG TAB PO SCH (08:15)
[2024-09-28] MEDS: PROPRANOLOL HCL 60 MG LA CAP PO SCH (08:16)
[2024-09-28] MEDS: ATORVASTATIN 20 MG TAB PO SCH (08:16)
[2024-09-28] MEDS: FAMOTIDINE 20 MG TAB PO SCH (08:16)
[2024-09-28] MEDS: DULoxetine HCL 30 MG CAP PO SCH (08:16)
[2024-09-28] MEDS: DULoxetine HCL 60 MG CAP PO SCH (08:17)
[2024-09-28] MEDS: ENOXAPARIN INJ 40 MG/0.4 ML SYR SQ SCH (08:23)
[2024-09-28] MEDS: MoRPHine SULFATE CR 15 MG TABCR PO SCH (08:35)
--- NOTE | 2024-09-28 08:56 | Hospitalist Progress Note ---
"Date of Service September 28, 2024 Assessment & Plan Plan 54 year-old male with medical history significant for COPD, GERD, anxiety/depression, CAD, HTN, s/p L total hip arthroplasty. Patient presented to the ED due to several weeks of progressive SOB and weakness. Entero/rhinovirus and Coronavirus NL63 | COPD, Emphysema -Baseline O2 requirement 2L, currently 97% on 3L NC. Wean as able -Received 60mg IV methylprednisolone in ED, will continue 40mg IV methylpr ednisolone in a.m. -Continue home inhalers, Duonebs PRN -CTA showed lower airspace opacities R>L, started on doxycycline in ED, will add Ceftriaxone -Repeat CBC, CMP in a.m. * Patient is very motivated to be discharged by Tuesday morning in order to attend a family event out of town Orthopnea -New symptom over past few weeks. No chest pain at present. Negative trop on admission -Follows with Dr. Zuniga -Patient reports no prior diagnosis of CHF -BNP 99 in ED -Will obtain echocardiogram in a.m. Chronic Pain- Neck and Back -Continue outpatient regimen for pain management including Morphine, Tizanidine, Duloxetine, Gabapentin -Continue home bowel regimen to prevent opioid induced constipation CAD | HTN -Continue statin -Continue diltiazem, metoprolol, lisinopril, Lasix Admit to: med/tele VTE Prophylaxis: Lovenox Diet: Heart healthy Code Status: Full Code Admission and Anticipated Discharge Date Admission Date: September 28, 2024 Results & Data Results & Data Vital Signs (Past 12 Hours) Vital Signs Pulse Pulse Pulse Resp Resp BP BP 09/28/24 05:00 85 142/92 H 09/28/24 04:01 90 131/86 09/28/24 03:30 90 125/64 09/28/24 03:00 66 125/64 09/28/24 02:32 09/28/24 02:26 65 20 101/64 09/28/24 02:00 80 20 101/64 09/28/24 01:00 68 15 122/88 09/28/24 00:27 72 09/28/24 00:00 69 18 132/78 09/27/24 23:23 88 22 09/27/24 23:15 73 24 134/62 09/27/24 22:30 70 16 09/27/24 22:12 69 15 09/27/24 22:00 133/81 09/27/24 22:00 133/81 09/27/24 21:00 127/68 09/27/24 21:00 127/68 09/27/24 21:00 127/68 09/27/24 20:56 67 22 Pulse Ox Pulse Ox Pulse Ox O2 Del Method O2 Del Method O2 Flow Rate O2 Flow Rate 09/28/24 05:00 97 Nasal Cannula 3 09/28/24 04:01 98 Nasal Cannula 3 09/28/24 03:30 97 Nasal Cannula 3 09/28/24 03:00 98 Nasal Cannula 3 09/28/24 02:32 97 Nasal Cannula 3 09/28/24 02:26 98 Nasal Cannula 3 09/28/24 02:00 95 Nasal Cannula 3 09/28/24 01:00 100 Nasal Cannula 3 09/28/24 00:27 09/28/24 00:00 99 09/27/24 23:23 88 L Nasal Cannula 3 09/27/24 23:15 98 09/27/24 22:30 100 09/27/24 22:12 100 09/27/24 22:00 09/27/24 22:00 09/27/24 21:00 09/27/24 21:00 09/27/24 21:00 09/27/24 20:56 100 PG Care Time/CCT Total # of Minutes Spent Total Time Spent with Patient: Total time spent is greater than 50% in coordination of care (as documented) at patient's floor/unit and/or counseling patient: Coding"
[2024-09-28] MEDS ORDERED: methylPREDNISolone 125 MG/2 ML VIAL IV SCH (09:00)
[2024-09-28] MEDS ORDERED: MoRPHine SULFATE IR 15 MG TAB (IMMEDIATE RELEASE) PO PRN (09:00)
[2024-09-28] MEDS: methylPREDNISolone 40 MG in SYRINGE 0 ML IV SCH (09:23)
--- NOTE | 2024-09-28 13:23 | Electrocardiogram Report ---
Test Reason : Blood Pressure : */* mmHG Vent. Rate : 80 BPM Atrial Rate : 80 BPM P-R Int : 146 ms QRS Dur : 74 ms QT Int : 364 ms P-R-T Axes : 37 49 64 degrees QTcB Int : 419 ms Normal sinus rhythm Low voltage QRS Borderline ECG When compared with ECG of 12-Oct-2022 11:15, T wave amplitude has decreased in Anterior leads Confirmed by Brodie Romano ([id number]) on 09/28/2024 1:23:00 PM Referred By: REFERRED SELF Confirmed By: Brodie Romano
[2024-09-28 15:53] VITALS: TEMP 98.2
--- NOTE | 2024-09-28 18:46 | Discharge Summary ---
"Discharge Summary Date of Service September 28, 2024 Principal Dx & Hospital Course #1 = Principal Diagnosis (1) Dyspnea: (2) Hypoxia: (3) COPD (chronic obstructive pulmonary disease): Plan 54 year-old male with medical history significant for COPD, GERD, anxiety/depression, CAD, HTN, s/p L total hip arthroplasty. Patient presented to the ED due to several weeks of progressive SOB and weakness. #Entero/rhinovirus and Coronavirus NL63 | COPD, Emphysema -Baseline O2 requirement 2L, currently 97% on 3L NC. Wean as able -Received 60mg IV methylprednisolone in ED, will continue 40mg IV methylprednisolone in a.m.- d/c on prednisone taper -Continue home inhalers, Duonebs PRN -CTA showed lower airspace opacities R>L, d/c of doxy and cefpodoxime -pt ambulated without any symptoms #Orthopnea -New symptom over past few weeks. No chest pain at present. Negative trop on admission -Follows with Dr. Zuniga, next appointment on 10/01/24 -Patient reports no prior diagnosis of CHF -BNP 99 in ED -ECHO completed but not read yet. However, pt is hemodynamically stable for discharge -pt instructed to go to nearest ER if symptoms recur #Chronic Pain- Neck and Back -Continue outpatient regimen for pain management including Morphine, Tizanidine, Duloxetine, Gabapentin -Continue home bowel regimen to prevent opioid induced constipation #CAD | HTN -Continue statin -Continue diltiazem, metoprolol, lisinopril, Lasix Admission HPI Per Admitting Provider Tank Porter is a 54 year-old male with medical history significant for COPD, GERD, anxiety/depression, CAD, HTN, s/p L total hip arthroplasty. Patient presented to the ED due to several weeks of progressive SOB and weakness. Patient reports that he went to his PCP twice and had lab work done and then an EKG which was normal but told to come to the ED for cardiac evaluation. Patient reports a history of pericarditis 10+ years ago, denies ever being diagnosed with CHF. Patient has emphysema and COPD, baseline O2 requirement is 2L but states he has been increasing it to 3L the past few weeks due to dyspnea. Endorses increased SOB when laying flat and has to prop himself up with more pillows lately to sleep. Endorses some increase LE swelling. Patient reports that prior hospitalization with multiple changes in room assignment made him very anxious, hopes to avoid this time. ED Course: -CTA chest, CXR -CBC, CMP, troponin Discharge Exam Gen: NAD, conversing appropriately HEENT: NC/AT, MMM Lungs: CTAB CVS: s1s2nl, RRR Abd: nl BS, soft, NT Ext: no edema Discharge Plan Discharge Items Patient Disposition: Home - Self-Care Reason For Visit: HYPOXIA Discharge Diagnosis: Viral pulmonary illness Activity: Resume your previous activity Non-emergency contact: Primary Care Provider Call non-emergency contact if: you have any medication questions and your symptoms worsen Follow-up/Referrals: Mike Singh MD [Primary Care Provider] - Diet: Heart Healthy Addtl Attending Provider Instructions: 1. go to the nearest hospital if shortness of breath gets worse or if you develop chest pain 2. follow with Dr. Zuniga on Tuesday 3. follow up with your primary care doctor within 7 to 10 days of discharge Pending Studies at Discharge: Yes Studies:: ECHO result Stand-Alone Forms: My [facility], Smoking Cessation Medications and DC Order Prescriptions: New prednisone 10 mg tablet See Rx Instructions .ROUTE .COMPLEX Qty: 20 0RF Rx Instructions: Take 4 tablets for 2 days then 3 tablets for 2 days then 2 tablets for 2 days then 1 tablet for 2 days. doxycycline monohydrate 100 mg capsule 100 mg PO BID Qty: 8 0RF cefpodoxime 200 mg tablet 200 mg PO BID Qty: 8 0RF Rx Instructions: must administer with a meal/food Continued montelukast [Singulair] 10 mg tablet 10 mg PO HS trazodone 50 mg tablet 100 mg PO HS Daliresp 500 mcg tablet 500 mcg PO HS albuterol sulfate 0.63 mg/3 mL solution for nebulization 0.63 mg INH TID PRN (Reason: Shortness Of Breath Or Wheezing) albuterol sulfate 90 mcg/actuation HFA aerosol inhaler 2 puffs INH Q4H PRN (Reason: Shortness Of Breath) (DME) Oxygen Home Liters Per Minute See Rx Instructions .ROUTE .MEDSUPPLY Qty: 1 Rx Instructions: As directed duloxetine [Cymbalta] 30 mg capsule,delayed release(DR/EC) 30 mg PO QAM Rx Instructions: w/ 60mg tab for 90mg total methylprednisolone 8 mg tablet 8 mg PO BID PRN (Reason: breathing flare up) gabapentin 600 mg tablet 600 mg PO TID Qty: 270 1RF (DME) 3-in-1 Commode Misc See Rx Instructions .MEDSUPPLY Qty: 1 0RF Rx Instructions: As directed (DME) 3-in-1 Commode Misc See Rx Instructions .MEDSUPPLY Qty: 1 0RF Rx Instructions: As directed atorvastatin 20 mg Tablet 20 mg PO QAM diltiazem HCl [Tiadylt ER] 360 mg Capsule,Extended Release 24 Hr 360 mg PO QAM omeprazole 40 mg Capsule,Delayed Release(Dr/Ec) 40 mg PO AMHS famotidine 20 mg Tablet 20 mg PO AMHS furosemide 20 mg Tablet 40 mg PO QAM docusate sodium 100 mg Tablet 100 mg PO TID duloxetine [Cymbalta] 60 mg Capsule,Delayed Release(Dr/Ec) 60 mg PO QAM Rx Instructions: w/30mg tab for 90mg total ivabradine [Corlanor] 5 mg Tablet 5 mg PO BID Rx Instructions: must administer with a meal/food Trelegy Ellipta 200-62.5-25 mcg Blister With Device 2 inh INHALATION QAM tizanidine 2 mg tablet 2 mg PO TID morphine 15 mg tablet extended release 15 mg PO AMHS morphine 15 mg tablet 15 mg PO TID propranolol 60 mg capsule,extended release 24 hr 60 mg PO QAM tamsulosin 0.4 mg capsule 0.4 mg PO QAM lisinopril 10 mg tablet 10 mg PO QAM Discharge Orders: Discharge Order (Routine); Ordered 09/28/24 Ordered By: Lucila Stephens Admission Data Admit Date/Time: 09/28/24 01:02 Attending Provider: Lucila Stephens Admit Provider: Sherry Campa Primary Care Provider: Mike Singh Other Providers: Jewel Rios Hospital Stay Data Consultations 09/27/24 23:48 ED Decision to Admit Stat Diagnostic Imagining Performed 09/27/24 21:37 CT angio chest PE protocol Stat Discharge Instructions Given to Patient (Per Discharging Provider) 1. go to the nearest hospital if shortness of breath gets worse or if you develop chest pain 2. follow with Dr. Zuniga on Tuesday 3. follow up with your primary care doctor within 7 to 10 days of discharge Total Time Total Time Spent Total Time Spent (In Minutes): 50 Coding Level of Care Code 54956 INP/OBS DISCH >30 MIN Diagnoses Dyspnea R06.00 Hypoxia R09.02 COPD (chronic obstructive pulmonary disease) J44.9"
[2024-09-28 19:16] VITALS: O2SAT 96
[2024-09-28 20:27] VITALS: BP 131/79; PULSE 90; RESP 8
[2024-09-28] MEDS ORDERED: ROFLUMILAST 500 MCG TAB PO SCH (21:00)
[2024-09-28] MEDS ORDERED: traZODone HCL 100 MG TAB PO SCH (21:00)
[2024-09-28] MEDS ORDERED: MONTELUKAST SODIUM 10 MG TABLET PO SCH (21:00)
== END 2024-09-28 20:24 | disposition home or self-care (01) ==
LOC: ED 18:16 → EDINP 18:16 → SUATTDRO 09-28 01:02 → EDINP 09-28 20:17
DX: Z99.81 Dependence on supplemental oxygen; I10 Essential (primary) hypertension; M54.9 Dorsalgia, unspecified; Z83.6 Family history of other diseases of the respiratory system; B34.2 Coronavirus infection, unspecified; K21.9 Gastro-esophageal reflux disease without esophagitis; B97.10 Unspecified enterovirus as the cause of diseases classified elsewhere; M54.2 Cervicalgia; G89.29 Other chronic pain; R09.02 Hypoxemia; R06.01 Orthopnea; I25.10 Atherosclerotic heart disease of native coronary artery without angina pectoris; Z79.899 Other long term (current) drug therapy; Z77.22 Contact with and (suspected) exposure to environmental tobacco smoke (acute) (chronic); Z20.822 Contact with and (suspected) exposure to COVID-19; Z88.8 Allergy status to other drugs, medicaments and biological substances; J43.9 Emphysema, unspecified; B97.89 Other viral agents as the cause of diseases classified elsewhere; F41.9 Anxiety disorder, unspecified; Z79.891 Long term (current) use of opiate analgesic; F32.A Depression, unspecified; Z79.51 Long term (current) use of inhaled steroids